=== PATIENT | female | born 1980 | race Caucasian/White ===

== ENCOUNTER → 2019-06-19 | Outpatient (CLI) | payer OTHER | END | disposition home or self-care (01) | LOC: LAB 14:44 | PROVIDERS: ATTEND Preventive Medicine Preventive Medicine/Occupational Environmental Medicine | DX: Z02.1 Encounter for pre-employment examination (principal) | CPT/HCPCS: 36415; 86706; 86735; 86762; 86765; 86787 ==

== ENCOUNTER → 2020-11-15 | Outpatient (CLI) | payer BC ==
[2020-11-15 09:38] LABS: Basophils # (auto) 0 10 ^3/uL (0-0.2); Basophils % (auto) 0.8 % (0.0-2.0); Eosinophils # (auto) 0.2 10 ^3/uL (0-0.8); Eosinophils % (auto) 4.2 % (0.0-7.0); Hematocrit 39.6 % (36.0-46.0); Hemoglobin 13.8 g/dL (12.2-16.2); Lymphocytes # (auto) 1.4 10 ^3/uL (0.4-5.4); Lymphocytes % (auto) 25.6 % (10.0-50.0); Mean Corpuscular Hemoglobin 31.9 pg (28.0-32.0); Mean Corpuscular Hgb Conc. 34.8 g/dL (32.0-36.0); Mean Corpuscular Volume 91.5 fL (80.0-100.0); Monocytes # (auto) 0.4 10 ^3/uL (0-1.3); Monocytes % (auto) 7.6 % (0.0-12.0); Neutrophils # (auto) 3.5 10 ^3/uL (1.6-8.6); Neutrophils % (auto) 61.8 % (37.0-80.0); Platelet Count (auto) 303 10^3/uL (140-450); Red Blood Cells 4.32 10^6/uL (4.0-5.20); Red Cell Distribution Width 12.8 % (11.8-14.3); White Blood Cell 5.7 10^3/uL (4.4-10.8)
[2020-11-15 09:56] LABS: Urine Bacteria NONE SEEN /hpf (None Seen); Urine Blood Negative /uL (Negative); Urine Mucus FEW (None Seen); Urine Specific Gravity 1.025 (1.001-1.035); Urine WBC 1 /hpf (0 - 5)
[2020-11-15 10:24] LABS: Albumin 3.6 g/dL (3.4-5.0); Calcium 8.3 mg/dL (8.5-10.1)
[2020-11-15 10:29] LABS: BUN/Creatinine Ratio 17.7; Bilirubin, Total 0.4 mg/dL (0.2-1.0); Total Protein 6.9 g/dL (6.4-8.2)
== END | disposition home or self-care (01) ==
LOC: LAB 09:15
PROVIDERS: ATTEND Internal Medicine
DX: M25.50 Pain in unspecified joint (principal)
CPT/HCPCS: 36415; 80053; 80061; 81001; 84439; 84443; 85025; 85049; 85652; 86038; 86200; 86431

== ENCOUNTER → 2023-03-18 | Outpatient (CLI) | payer BC ==
[2023-03-18 09:12] LABS: Basophils # (auto) 0 10 ^3/uL (0-0.2); Basophils % (auto) 0.4 % (0.0-2.0); Eosinophils # (auto) 0.2 10 ^3/uL (0-0.8); Eosinophils % (auto) 3.6 % (0.0-7.0); Hemoglobin 14.1 g/dL (12.2-16.2); Lymphocytes # (auto) 1.5 10 ^3/uL (0.4-5.4); Lymphocytes % (auto) 23.9 % (10.0-50.0); Mean Corpuscular Hemoglobin 31.4 pg (28.0-32.0); Mean Corpuscular Hgb Conc. 34.3 g/dL (32.0-36.0); Mean Corpuscular Volume 91.6 fL (80.0-100.0); Monocytes # (auto) 0.5 10 ^3/uL (0-1.3); Monocytes % (auto) 7.3 % (0.0-12.0); Neutrophils % (auto) 64.8 % (37.0-80.0); Nucleated Red Blood Cells % 0.1 %; Red Blood Cells 4.47 10^6/uL (4.0-5.20); Red Cell Distribution Width 12.6 % (11.8-14.3); White Blood Cell 6.2 10^3/uL (4.4-10.8)
[2023-03-18 09:24] LABS: Urine Bacteria NONE SEEN /hpf (None Seen); Urine Blood Negative /uL (Negative); Urine Clarity Clear (Clear); Urine Color Yellow (Yellow); Urine Hyaline Cast FEW /lpf (0 - 2); Urine Mucus FEW (None Seen); Urine Protein, UAD TRACE (Negative); Urine Specific Gravity 1.026 (1.001-1.035); Urine Urobilinogen Normal (Negative); Urine WBC 1 /hpf (0 - 5)
[2023-03-18 09:35] LABS: Alanine Aminotransferase 30 U/L (7-40); Alkaline Phosphatase 62 U/L (46-116); Anion Gap 3 (5-15); Aspartate Aminotransferase 24 U/L (13-40); BUN/Creatinine Ratio 10.7 (10.0-20.0); Blood Urea Nitrogen 8 mg/dL (9-23); Calcium 9.6 mg/dL (8.5-10.1); Carbon Dioxide 29 mmol/L (20-30); Chloride 107 mmol/L (98-107); Glucose 99 mg/dL (74-106); LDL Cholesterol 108 mg/dL (< 100); Potassium 4.1 mmol/L (3.5-5.1); Sodium 139 mmol/L (136-145); Triglycerides 83 mg/dL (< 150)
[2023-03-18 09:36] LABS: Albumin 4.5 g/dL (3.2-4.8); Bilirubin, Total 0.7 mg/dL (0.2-1.0); Cholesterol 169 mg/dL (< 200); HDL Cholesterol 51 mg/dL (40-59); Total Protein 7.2 g/dL (5.7-8.2)
[2023-03-18 09:39] LABS: Free T4 (Free Thyroxine) 0.93 ng/dL (0.89-1.76)
[2023-03-18 09:40] LABS: Follicle Stimulating Hormone 78.34 IU/L (SEE BELOW); Prolactin 6.67 ng/mL (2.8-29.2)
[2023-03-18 10:18] LABS: Erythrocyte Sedimentation Rate 14 mm/hr (0-20)
== END | disposition home or self-care (01) ==
LOC: LAB 08:47
PROVIDERS: ATTEND Internal Medicine
DX: N92.6 Irregular menstruation, unspecified (principal); R63.5 Abnormal weight gain
CPT/HCPCS: 36415; 80053; 80061; 81001; 83001; 83036; 84146; 84439; 84443; 85025; 85652

== ENCOUNTER → 2023-09-13 | Outpatient (CLI) | payer BC ==
[2023-09-13 12:48] LABS: Basophils # (auto) 0 10 ^3/uL (0-0.2); Basophils % (auto) 0.5 % (0.0-2.0); Eosinophils # (auto) 0.3 10 ^3/uL (0-0.8); Eosinophils % (auto) 4.2 % (0.0-7.0); Hematocrit 40.4 % (36.0-46.0); Hemoglobin 13.6 g/dL (12.2-16.2); Lymphocytes # (auto) 2.6 10 ^3/uL (0.4-5.4); Lymphocytes % (auto) 35.7 % (10.0-50.0); Mean Corpuscular Hemoglobin 30.8 pg (28.0-32.0); Mean Corpuscular Hgb Conc. 33.7 g/dL (32.0-36.0); Mean Corpuscular Volume 91.4 fL (80.0-100.0); Monocytes # (auto) 0.4 10 ^3/uL (0-1.3); Monocytes % (auto) 4.9 % (0.0-12.0); Neutrophils % (auto) 54.7 % (37.0-80.0); Nucleated Red Blood Cells % 0.1 %; Red Blood Cells 4.42 10^6/uL (4.0-5.20); Red Cell Distribution Width 12.9 % (11.8-14.3); White Blood Cell 7.2 10^3/uL (4.4-10.8)
[2023-09-13 13:16] LABS: Alanine Aminotransferase 24 U/L (7-40); Albumin 4.5 g/dL (3.2-4.8); Alkaline Phosphatase 64 U/L (46-116); Anion Gap 9 (5-15); Aspartate Aminotransferase 24 U/L (13-40); BUN/Creatinine Ratio 9.9 (10.0-20.0); Bilirubin, Total 0.4 mg/dL (0.2-1.0); Blood Urea Nitrogen 7 mg/dL (9-23); Calcium 9.7 mg/dL (8.5-10.1); Carbon Dioxide 25 mmol/L (20-30); Chloride 104 mmol/L (98-107); Glucose 84 mg/dL (74-106); Potassium 3.9 mmol/L (3.5-5.1); Sodium 138 mmol/L (136-145); Total Protein 7.2 g/dL (5.7-8.2)
[2023-09-13 13:57] LABS: Erythrocyte Sedimentation Rate 8 mm/hr (0-20)
== END | disposition home or self-care (01) ==
LOC: LAB 12:26
PROVIDERS: ATTEND Internal Medicine
DX: K21.9 Gastro-esophageal reflux disease without esophagitis (principal); K62.5 Hemorrhage of anus and rectum
CPT/HCPCS: 36415; 80053; 85025; 85652

== ENCOUNTER → 2024-02-09 | Outpatient (CLI) | payer BC ==
[2024-02-09 09:13] LABS: Urine Bacteria None Seen /hpf (None Seen)
[2024-02-09 09:37] LABS: Basophils # (auto) 0 10 ^3/uL (0-0.2); Basophils % (auto) 0.4 % (0.0-2.0); Eosinophils # (auto) 0.2 10 ^3/uL (0-0.8); Eosinophils % (auto) 3.6 % (0.0-7.0); Hematocrit 42.3 % (36.0-46.0); Hemoglobin 14.4 g/dL (12.2-16.2); Lymphocytes # (auto) 1.5 10 ^3/uL (0.4-5.4); Lymphocytes % (auto) 22.4 % (10.0-50.0); Mean Corpuscular Hemoglobin 31.6 pg (28.0-32.0); Mean Corpuscular Volume 92.8 fL (80.0-100.0); Monocytes # (auto) 0.5 10 ^3/uL (0-1.3); Monocytes % (auto) 7.5 % (0.0-12.0); Neutrophils # (auto) 4.4 10 ^3/uL (1.6-8.6); Neutrophils % (auto) 66.1 % (37.0-80.0); Nucleated Red Blood Cells % 0.1 %; Platelet Count (auto) 353 10^3/uL (140-450); Red Blood Cells 4.56 10^6/uL (4.0-5.20); Red Cell Distribution Width 12.7 % (11.8-14.3); White Blood Cell 6.6 10^3/uL (4.4-10.8)
[2024-02-09 09:39] LABS: Urine Blood Negative /uL (Negative); Urine Clarity Clear (Clear); Urine Color Light-Yellow (Yellow); Urine Protein, UAD Negative (Negative); Urine Urobilinogen Normal (Negative); Urine WBC <1 /hpf (0 - 5)
[2024-02-09 10:01] LABS: Alanine Aminotransferase 22 U/L (7-40); Albumin 4.6 g/dL (3.2-4.8); Alkaline Phosphatase 72 U/L (46-116); Anion Gap 6 (5-15); Aspartate Aminotransferase 18 U/L (13-40); BUN/Creatinine Ratio 10.7 (10.0-20.0); Blood Urea Nitrogen 8 mg/dL (9-23); Calcium 10.1 mg/dL (8.7-10.4); Carbon Dioxide 27 mmol/L (20-30); Chloride 108 mmol/L (98-107); Glucose 91 mg/dL (74-106); LDL Cholesterol 112 mg/dL (< 100); Potassium 4.2 mmol/L (3.5-5.1); Sodium 141 mmol/L (136-145); Triglycerides 78 mg/dL (< 150)
[2024-02-09 10:02] LABS: Bilirubin, Total 0.7 mg/dL (0.2-1.0); Cholesterol 180 mg/dL (< 200); HDL Cholesterol 55 mg/dL (40-59); Total Protein 7.3 g/dL (5.7-8.2)
[2024-02-09 10:14] LABS: Erythrocyte Sedimentation Rate 14 mm/hr (0-20)
== END | disposition home or self-care (01) ==
LOC: LAB 08:57
PROVIDERS: ATTEND Internal Medicine
DX: K62.5 Hemorrhage of anus and rectum (principal); R10.30 Lower abdominal pain, unspecified; R63.5 Abnormal weight gain
CPT/HCPCS: 36415; 80053; 80061; 81001; 82533; 84439; 84443; 85025; 85652

== ENCOUNTER → 2024-04-04 | Outpatient (CLI) | payer BC ==
[2024-04-04 16:34] LABS: Basophils # (auto) 0 10 ^3/uL (0-0.2); Basophils % (auto) 0.4 % (0.0-2.0); Eosinophils # (auto) 0.3 10 ^3/uL (0-0.8); Eosinophils % (auto) 3.2 % (0.0-7.0); Hematocrit 42.4 % (36.0-46.0); Hemoglobin 14.3 g/dL (12.2-16.2); Lymphocytes # (auto) 2.6 10 ^3/uL (0.4-5.4); Lymphocytes % (auto) 27.9 % (10.0-50.0); Mean Corpuscular Hemoglobin 31.6 pg (28.0-32.0); Mean Corpuscular Hgb Conc. 33.9 g/dL (32.0-36.0); Mean Corpuscular Volume 93.3 fL (80.0-100.0); Monocytes # (auto) 0.6 10 ^3/uL (0-1.3); Monocytes % (auto) 6.3 % (0.0-12.0); Neutrophils # (auto) 5.8 10 ^3/uL (1.6-8.6); Neutrophils % (auto) 62.2 % (37.0-80.0); Platelet Count (auto) 385 10^3/uL (140-450); Red Blood Cells 4.54 10^6/uL (4.0-5.20); Red Cell Distribution Width 12.9 % (11.8-14.3); White Blood Cell 9.3 10^3/uL (4.4-10.8)
== END | disposition home or self-care (01) ==
LOC: LAB 16:18
PROVIDERS: ATTEND Internal Medicine
DX: K62.5 Hemorrhage of anus and rectum (principal); G43.909 Migraine, unspecified, not intractable, without status migrainosus
CPT/HCPCS: 36415; 83540; 85025

== ENCOUNTER 2024-09-01 07:57 | Day surgery (SDC) | payer BC ==
[2024-08-30 08:39] LABS: Urine Bacteria None Seen /hpf (None Seen)
[2024-08-30 08:51] LABS: Basophils # (auto) 0 10 ^3/uL (0-0.2); Basophils % (auto) 0.3 % (0.0-2.0); Eosinophils # (auto) 0.2 10 ^3/uL (0-0.8); Eosinophils % (auto) 2.7 % (0.0-7.0); Hematocrit 40.8 % (36.0-46.0); Hemoglobin 14.2 g/dL (12.2-16.2); Lymphocytes # (auto) 1.6 10 ^3/uL (0.4-5.4); Mean Corpuscular Hemoglobin 31.9 pg (28.0-32.0); Mean Corpuscular Hgb Conc. 34.8 g/dL (32.0-36.0); Mean Corpuscular Volume 91.6 fL (80.0-100.0); Monocytes # (auto) 0.6 10 ^3/uL (0-1.3); Monocytes % (auto) 7.5 % (0.0-12.0); Neutrophils # (auto) 5.2 10 ^3/uL (1.6-8.6); Neutrophils % (auto) 68.5 % (37.0-80.0); Platelet Count (auto) 330 10^3/uL (140-450); Red Blood Cells 4.45 10^6/uL (4.0-5.20); Red Cell Distribution Width 12.7 % (11.8-14.3); White Blood Cell 7.6 10^3/uL (4.4-10.8)
[2024-08-30 09:18] LABS: Alanine Aminotransferase 24 U/L (7-40); Albumin 4.5 g/dL (3.2-4.8); Alkaline Phosphatase 71 U/L (46-116); Anion Gap 7 (5-15); Aspartate Aminotransferase 23 U/L (13-40); BUN/Creatinine Ratio 10.5 (10.0-20.0); Calcium 10.1 mg/dL (8.7-10.4); Carbon Dioxide 28 mmol/L (20-31); Chloride 105 mmol/L (98-107); Glucose 85 mg/dL (74-106); Potassium 3.7 mmol/L (3.5-5.1); Sodium 140 mmol/L (136-145); Total Protein 7.2 g/dL (5.7-8.2)
[2024-08-30 09:19] LABS: Bilirubin, Total 0.4 mg/dL (0.2-1.0); Blood Urea Nitrogen 8 mg/dL (9-23)
[2024-08-30 09:27] LABS: INR 1.03 (0.9-1.15); Partial Thromboplastin Time 28.1 SEC (24.5-34.5); Prothrombin Time 10.9 sec (9.3-11.8)
[2024-08-30 10:21] LABS: Urine Blood Negative /uL (Negative); Urine Clarity Clear (Clear); Urine Color Light-Yellow (Yellow); Urine Mucus FEW (None Seen); Urine Protein, UAD Negative (Negative); Urine Specific Gravity 1.017 (1.001-1.035); Urine Squamous Epithelial Cell FEW /hpf (<5); Urine Urobilinogen Normal (Negative); Urine WBC 1 /HPF (0-5); Urine pH 5.5 (5.0-9.0)
[~2024-09-01] VITALS: Ht 165.1 cm; Wt 94.3 kg
[~2024-09-01 07:57] MED LIST: ALBUAER3 IN; FLUT1AER3 IN; MONT-8 OR
[2024-09-01] MEDS ORDERED: PROPOFOL 10 MG/ML 20 ML IV ONE ×3 (08:27→09:47)
[2024-09-01] MEDS ORDERED: LIDOCAINE 2% (LOCAL ANESTH.) PF 5ml SDV ONE (08:28)
[2024-09-01 09:54] VITALS: PULSE 18; RESP 18; TEMP 97.4; O2SAT 99
[2024-09-01 10:35] VITALS: BP 137/72; PULSE 83; RESP 12; O2SAT 98
--- NOTE | 2024-09-01 10:39 | DVHOP2 ---
Operative Report DATE OF OPERATION: 09/01/24 PROCEDURE: Upper Endoscopy with biopsy. PREOPERATIVE INDICATION: The patient is a 44 -year-old female undergoing endoscopy for chronic GERD POSTOPERATIVE DIAGNOSES: 1. Patient had a 1 cm sliding-type hiatal hernia with minimal grade a erosive esophagitis 2. Minimal gastritis otherwise normal examination up to the 2nd and 3rd part of the duodenum PROCEDURE PERFORMED BY: Chaz Sanders GI NURSE: Ghada SCOPE: Olympus videoendoscope. ASA CLASS: 2. PREOPERATIVE MEDICATIONS: Mac sedation, Emiliano Gold PROCEDURE IN DETAIL: After obtaining an informed consent, the patient was placed on left lateral decubitus position. The patient was then sedated with the above medications. A bite block was placed between her teeth. The endoscope was then passed through the oropharynx, into the esophagus, and through the stomach and pylorus up to the second and third part of the duodenum. The endoscope was then withdrawn. The 2nd and 3rd part of the duodenal and the duodenal bulb were normal. Duodenal biopsies were obtained The pre-pyloric area antrum and body showed minimal gastritis. Gastric biopsies were obtained. On retroflexion the fundus cardia and angularis were normal. The endoscope was then withdrawn into the distal esophagus Patient had a 1 cm sliding-type hiatal hernia with minimal grade A erosive esophagitis. GE junction biopsies were obtained. The remaining distal and proximal esophagus and oropharynx were unremarkable The patient tolerated the procedure well without difficulty. COMPLICATIONS : None SPECIMENS: Gastric biopsies Antral biopsies GEJx DISPOSITION: Stable D/C to home PLAN: 1. Await for biopsy result 2. Will place pt on Protonix 40 mg p.o. daily 3. Resume GI soft diet 4. Lifestyle and dietary modifications for GERD 5. Outpatient follow up with me in 4-6 weeks to review results and discuss further management CHAZ SANDERS MD Sep 01, 2024 10:39
--- NOTE | 2024-09-01 10:43 | DVHOP2 ---
Operative Report DATE OF OPERATION: 09/01/24 PROCEDURE: Colonoscopy with biopsy and Esperanza ink injection. PREOPERATIVE INDICATION: The patient is a 44 -year-old female undergoing colonoscopy for screening with history of rectal bleeding POSTOPERATIVE DIAGNOSES: 1. Patient had a distal sigmoid mass extending from about 10-15 cm above anal verge which was circumferential with polypoid raised edges and central ulceration friable from which multiple biopsies were obtained Esperanza ink was injected in the proximal and distal margin of the tumor 2. Three or four diminutive benign-appearing rectal polyps were seen and removed by cold biopsy forceps 3. Mild sigmoid diverticular disease 4. Trace internal hemorrhoids otherwise normal examination up to the cecum PROCEDURE PERFORMED BY: Chaz Sanders M.D. SCOPE: Olympus videocolonoscope. ASA CLASS: 2. PREOPERATIVE MEDICATIONS: Emiliano Lynn PROCEDURE IN DETAIL: After obtaining an informed consent, the patient was placed on left lateral decubitus position. She was then sedated with the above medications. A rectal examination was performed that was normal. The colonoscope was then passed through the anus into the rectosigmoid and through the descending, transverse, and ascending colon up to the cecum with visualization of the appendiceal orifice, base of the cecum and the ileocecal valve. The colonoscope was then withdrawn. There was no evidence of colitis. Patient had mild sigmoid diverticular disease. Patient had a distal sigmoid mass. Multiple biopsies were obtained This was circumferential annular partially obstructing friable with central ulceration and raised edges at the proximal and distal margins Esperanza ink was applied on the proximal and distal margins of the ulcers for marking and tattooing. The patient did have three or four diminutive hyperplastic type rectal polyps that were seen and removed by cold biopsy forceps On retroflexion and straight on view she had trace to 1+ internal hemorrhoids. The patient tolerated the procedure well without difficulty. WITHDRAWAL TIME: 12 minutes QUALITY OF THE PREP: Flaxton Bowel Prep score: 9. COMPLICATIONS : None SPECIMENS: Sigmoid mass biopsies Rectal polyps DISPOSITION: Stable D/C to home PLAN: 1. Await biopsy results 2. CT scan of the chest abdomen pelvis 3. Check labs including CEA level 4. Surgical referral for low anterior resection as the tumor is causing partial obstruction and bleeding 5. Oncology referral subsequently for further management 6. Discuss results with patient CHAZ SANDERS MD Sep 01, 2024 10:43
== END 2024-09-01 10:55 | disposition home or self-care (01) ==
LOC: GI 07:57
PROVIDERS: ATTEND Internal Medicine Gastroenterology
DX: K62.5 Hemorrhage of anus and rectum (principal); C18.7 Malignant neoplasm of sigmoid colon; K62.1 Rectal polyp; K57.30 Diverticulosis of large intestine without perforation or abscess without bleeding; K29.50 Unspecified chronic gastritis without bleeding; K21.9 Gastro-esophageal reflux disease without esophagitis; K22.10 Ulcer of esophagus without bleeding; K29.70 Gastritis, unspecified, without bleeding; I10 Essential (primary) hypertension; J45.909 Unspecified asthma, uncomplicated; F17.210 Nicotine dependence, cigarettes, uncomplicated; E66.01 Morbid (severe) obesity due to excess calories; Z68.34 Body mass index [BMI] 34.0-34.9, adult; Z79.899 Other long term (current) drug therapy; Z90.79 Acquired absence of other genital organ(s); Z98.890 Other specified postprocedural states
CPT/HCPCS: 36415; 43239; 45380; 45381; 80053; 81001; 84702; 85025; 85610; 85730; 88305; 88312; 88342; A4648; J2003; J2704; J7030

== ENCOUNTER → 2024-09-05 | Outpatient (CLI) | payer BC | END | disposition home or self-care (01) | LOC: LAB 16:09 | PROVIDERS: ATTEND Internal Medicine Gastroenterology | DX: C18.7 Malignant neoplasm of sigmoid colon (principal) | CPT/HCPCS: 36415; 82378; 82565; 84520 ==

== ENCOUNTER 2024-09-20 06:15 | Inpatient (IN) | payer BC ==
[2024-09-18 11:55] LABS: Urine Bacteria None Seen /hpf (None Seen)
[2024-09-18 11:58] LABS: Basophils # (auto) 0 10 ^3/uL (0-0.2); Basophils % (auto) 0.1 % (0.0-2.0); Eosinophils # (auto) 0.2 10 ^3/uL (0-0.8); Eosinophils % (auto) 2.1 % (0.0-7.0); Hematocrit 44.9 % (36.0-46.0); Hemoglobin 15.3 g/dL (12.2-16.2); Lymphocytes % (auto) 23.2 % (10.0-50.0); Mean Corpuscular Hemoglobin 30.9 pg (28.0-32.0); Mean Corpuscular Volume 90.8 fL (80.0-100.0); Monocytes # (auto) 0.5 10 ^3/uL (0-1.3); Monocytes % (auto) 5.9 % (0.0-12.0); Neutrophils % (auto) 68.7 % (37.0-80.0); Nucleated Red Blood Cells % 0.1 %; Platelet Count (auto) 433 10^3/uL (140-450); Red Blood Cells 4.94 10^6/uL (4.0-5.20); White Blood Cell 8.7 10^3/uL (4.4-10.8)
[2024-09-18 12:14] LABS: Urine Blood Negative /uL (Negative); Urine Clarity Clear (Clear); Urine Color Light-Yellow (Yellow); Urine Protein, UAD Negative (Negative); Urine Specific Gravity 1.008 (1.001-1.035); Urine Squamous Epithelial Cell None Seen /hpf (<5); Urine Urobilinogen Normal (Negative); Urine pH 6.5 (5.0-9.0)
[2024-09-18 12:15] LABS: INR 1.05 (0.9-1.15); Partial Thromboplastin Time 28.4 SEC (24.5-34.5); Prothrombin Time 11.1 sec (9.3-11.8)
[2024-09-18 12:24] LABS: Alanine Aminotransferase 26 U/L (7-40); Albumin 4.7 g/dL (3.2-4.8); Alkaline Phosphatase 75 U/L (46-116); Anion Gap 8 (5-15); Aspartate Aminotransferase 16 U/L (13-40); BUN/Creatinine Ratio 7.3 (10.0-20.0); Carbon Dioxide 25 mmol/L (20-31); Chloride 105 mmol/L (98-107); Glucose 98 mg/dL (74-106); Sodium 138 mmol/L (136-145); Total Protein 7.5 g/dL (5.7-8.2)
[2024-09-18 12:25] LABS: Bilirubin, Total 0.6 mg/dL (0.2-1.0)
[2024-09-18 12:28] LABS: Blood Urea Nitrogen 6 mg/dL (9-23); Calcium 10.5 mg/dL (8.7-10.4)
[~2024-09-20] VITALS: Ht 167.6 cm; Wt 96.3 kg
[2024-09-20] VITALS (7 sets, daily range): BP systolic 106–122; BP diastolic 66–76; PULSE 83–93; RESP 16–20; TEMP 97.5–99; O2SAT 91–97
[2024-09-20] MEDS: CELECOXIB 100 MG CAP ONE (06:44)
[2024-09-20] MEDS: ACETAMINOPHEN IV 100 ML IV ONE (06:44)
[2024-09-20] MEDS: GABAPENTIN 300 MG CAP ONE (06:44)
[2024-09-20] MEDS: ceFAZolin 2 GM/D5W50ml 50 ML IV ONE (06:45)
[2024-09-20] MEDS: BUPIVACAINE 0.25% INJ 50ML VIAL ONE (06:48)
[2024-09-20] MEDS: GABAPENTIN 300 MG CAP PO ONE (06:50)
[2024-09-20] MEDS: ACETAMINOPHEN IV 1000 MG/100ML (10MG/ML) IV ONE (06:50)
[2024-09-20] MEDS: CELECOXIB 100 MG CAP PO ONE (06:50)
[2024-09-20] MEDS: BUPIVACAINE 0.5% P/F INJ 10 ML VIAL ONE (06:56)
[2024-09-20] MEDS: LIDOCAINE W/ EPINEPHRINE 1% 20ML VIAL ONE (06:56)
[2024-09-20] MEDS: POVIDONE IODINE 10 % TOPICAL OINT 30GM TOP ONE (06:58)
[2024-09-20] MEDS ORDERED: DexAMETHasone SOD PHOS 10MG/1ML VIAL INJ ONE ×2 (07:02→07:04)
[2024-09-20] MEDS ORDERED: PROPOFOL 10 MG/ML 20 ML IV ONE ×3 (07:03→09:10)
[2024-09-20] MEDS ORDERED: GLYCOPYRROLATE 0.2 MG/ML 1ML VIAL ONE (07:03)
[2024-09-20] MEDS ORDERED: ROCURONIUM 10MG/ML 10ML VIAL IV ONE (07:03)
[2024-09-20] MEDS ORDERED: EPINEPHrine HCL 1 MG/1 ML AMP ONE (07:04)
[2024-09-20] MEDS ORDERED: KETOROLAC TROMETH 30 MG/ML 1ML VIAL ONE (07:04)
[2024-09-20] MEDS ORDERED: ONDANSETRON HCL 4 MG/2 ML VIAL ONE (07:04)
[2024-09-20] MEDS ORDERED: LIDOCAINE 2% (LOCAL ANESTH.) PF 5ml SDV ONE (07:04)
[2024-09-20] MEDS ORDERED: SUGAMMADEX 200mg/2ml Vial (100MG/ML) IV ONE (07:04)
[2024-09-20] MEDS ORDERED: LIDOCAINE HCL 2% TOP JELLY 5ML TOP ONE (07:07)
[2024-09-20] MEDS ORDERED: KETAMINE 50mg/ML 1ml syringe ONE (07:11)
[2024-09-20] MEDS ORDERED: fentaNYL CITRATE 100 MCG/2 ML VL ONE (07:21)
[2024-09-20] MEDS ORDERED: SODIUM CHLORIDE LOCK 10 ML ONE (07:48)
[2024-09-20] MEDS ORDERED: PHENYLEPHRINE HCL 10 MG/ML VL ONE (07:48)
[2024-09-20] MEDS ORDERED: ESMOLOL HCL 10 ML IV ONE (08:00)
[2024-09-20] MEDS ORDERED: ONDANSETRON HCL 4 MG/2 ML VIAL IV PRN ×2 (10:15→10:45)
--- NOTE | 2024-09-20 10:25 | DVHOP ---
DATE OF SURGERY: 09/20/2024 PREOPERATIVE DIAGNOSIS: Colorectal cancer. POSTOPERATIVE DIAGNOSIS: Rectal cancer. SURGEON: John White MD [employer]: Antonio Chambers. ANESTHESIA: General endotracheal. ANESTHESIOLOGIST: Wai Rebollar. PROCEDURE: Exploratory laparotomy, low anterior resection, rectosigmoid anastomosis. DESCRIPTION OF PROCEDURE: Under general anesthesia with the patient's skin prepped and draped, a midline incision was made and the morbidly obese abdomen entered. The amount of obesity was extreme and made the operation extremely difficult. Exploration of the abdomen manually and visually revealed no unexpected pathology. The tumor, however, was not in the sigmoid colon, as reported previously it was in the rectum itself. The presence of the uterus, morbid obesity, relatively narrow pelvis, and a very low lying tumor made the operation exceedingly difficult. I mobilized the left colon by incision along the white line of Toldt, sweeping away the ureters on the left and right side. These ureters were visualized and protected. The mesentery was divided between metallic clamps and the mesenteric pedicles were ligated. The pelvic floor was opened and dissected. The rectum was elevated. The rectal tumor was circumferential in nature, palpable, and it was extremely difficult to elevate from the pelvis. I was unable to put a clamp on the rectum. The rectum was transected approximately 3 cm distal to the tumor and the rectal stump was held in place by Augusta forceps. The rectosigmoid colon was then divided and the specimen removed from the field submitted for histopathologic examination. The descending sigmoid colon segment was anastomosed to the rectum utilizing 3-0 Monocryl suture. The wall was exceedingly thin, and due to the fat that was present, I was unable to put reinforcing Prolene sutures into the serosa. The mesentery was then approximated using 2-0 Monocryl suture and the pelvis was profusely irrigated. Irrigant was aspirated. A 10-mm Fabian-Perez drain was placed to the vicinity of the anastomosis, but not abutting against it. The drain was exteriorized separately and secured with a 2-0 nylon suture following assurance of adequate and accurate needle and sponge counts, and following assurance of complete hemostasis, the abdomen was closed using 2-0 Monocryl suture for approximation of the peritoneum, #1 double-stranded PDS suture for approximation of the fascia, 2-0 Monocryl suture for approximation of subcutaneous fat, subcutaneous tissues, and skin. The patient remained stable throughout the procedure and left the operating room following an accurate needle and sponge count. Her daughter, Mery, was thoroughly informed by phone of her mother's procedure and successful completion thereof. MD ELIJAH Johnson/PHIL TID: [id number] RECEIPT: [id number]
[2024-09-20] MEDS ORDERED: hydrALAZINE HCL 20 MG/ML VL IV PRN (10:45)
[2024-09-20] MEDS ORDERED: oxyCODONE HCL 5MG TAB PO PRN (10:45)
[2024-09-20] MEDS: HYDROmorphone HCL 2 MG/ML VL/or syr IV PRN ×2 (10:45→22:08)
[2024-09-20] MEDS ORDERED: FLUMAZENIL 0.1 MG/ML INJ 10ML MDV IV PRN (10:45)
[2024-09-20] MEDS ORDERED: fentaNYL CITRATE 100 MCG/2 ML VL IV PRN (10:45)
[2024-09-20] MEDS ORDERED: NITROGLYCERIN 0.4 MG SL TAB SL PRN (10:45)
[2024-09-20] MEDS: HYDROmorphone HCL 2 MG/ML VL/or syr ONE (10:45)
[2024-09-20] MEDS ORDERED: NALOXONE HCL 0.4 MG/ML VIAL IV PRN (10:45)
[2024-09-20] MEDS ORDERED: ePHEDrine SULFATE 50 MG/ML AMP IV PRN (10:45)
[2024-09-20] MEDS ORDERED: TPN PER PHARMACY 0 ML IV SCH (12:00)
[2024-09-20] MEDS: D5W/SOD CHL 0.45%/KCL 20MEQ 1,000 ML IV SCH (13:13)
[2024-09-20] MEDS ORDERED: DEXTROSE (50%) 50ML SYRG IV SCH ×2 (13:15→15:00)
[2024-09-20] MEDS ORDERED: MONT-8 OR (13:27)
[2024-09-20] MEDS ORDERED: FLUT1AER3 IN (13:27)
[2024-09-20] MEDS ORDERED: ALBU2TAB11 PO (13:27)
--- NOTE | 2024-09-20 14:29 | DVHHP2 ---
Review of Systems Allergies: Coded Allergies: NO KNOWN ALLERGIES (Unverified , 08/30/24) Medications Current Medications Medications Dose Ordered Sig/Deisy Route Start Time Stop Time Status Last Admin Dose Admin Potassium Chloride/Dextrose/ Sod Cl 1,000 ml @ 120 mls/hr Q8H20M IV 09/20/24 10:15 09/20/24 13:13 120 MLS/HR Cefazolin Sodium/ Dextrose 50 ml @ 50 mls/hr Q8H IV 09/20/24 13:00 Metronidazole 100 ml @ 100 mls/hr Q8HR IV 09/20/24 14:00 Pantoprazole Sodium 40 mg DAILY IV 09/21/24 10:00 Ondansetron HCl 4 mg Q4HPRN PRN IV 09/20/24 10:15 Nitroglycerin 0.4 mg Q5MINP PRN SL 09/20/24 10:45 Amino Acids 0 ml @ 0 mls/hr PER PHARMACY IV 09/20/24 12:00 Diagnostic Test (Pha) 1 strip Q6HR 09/20/24 18:00 Insulin Human Regular FOLLOW SLIDING SCALE Q6HR SC 09/20/24 18:00 Dextrose 50 ml UD IV 09/20/24 13:15 Fat Emulsion Intravenous 50 ml/ Sodium Chloride 40 meq/Potassium Chloride 20 meq/ Magnesium Sulfate 6 meq/ Multivitamins 10 ml/Chromium/ Copper/Manganese/ Zinc 1 ml/Amino Acids/Dextrose 982.5 ml @ 41 mls/hr [id number] IV 09/20/24 22:00 09/21/24 21:59 Exam Vital Signs Vital Signs Date Time Temp Pulse Resp B/P (MAP) Pulse Ox O2 Delivery O2 Flow Rate FiO2 09/20/24 11:45 Nasal Cannula 3.0 98 09/20/24 11:42 88 14 110/69 (83) 98 09/20/24 10:32 98.9 98.9 Labs/Xrays Labs Test 09/20/24 11:47 09/18/24 11:47 Range/Units White Blood Count 8.7 4.4-10.8 10^3/uL Red Blood Count 4.94 4.0-5.20 10^6/uL Hemoglobin 15.3 12.2-16.2 g/dL Hematocrit 44.9 36.0-46.0 % Mean Corpuscular Volume 90.8 80.0-100.0 fL Mean Corpuscular Hemoglobin 30.9 28.0-32.0 pg Mean Corpuscular Hemoglobin Concent 34.0 32.0-36.0 g/dL Red Cell Distribution Width 13.0 11.8-14.3 % Platelet Count 433 140-450 10^3/uL Mean Platelet Volume 7.5 6.9-10.8 fL Neutrophils (%) (Auto) 68.7 37.0-80.0 % Lymphocytes (%) (Auto) 23.2 10.0-50.0 % Monocytes (%) (Auto) 5.9 0.0-12.0 % Eosinophils (%) (Auto) 2.1 0.0-7.0 % Basophils (%) (Auto) 0.1 0.0-2.0 % Neutrophils # (Auto) 6.0 1.6-8.6 10 ^3/uL Lymphocytes # (Auto) 2.0 0.4-5.4 10 ^3/uL Monocytes # (Auto) 0.5 0-1.3 10 ^3/uL Eosinophils # (Auto) 0.2 0-0.8 10 ^3/uL Basophils # (Auto) 0 0-0.2 10 ^3/uL Nucleated Red Blood Cells 0.1 % Prothrombin Time 11.1 9.3-11.8 sec Prothrombin Time INR 1.05 0.9-1.15 Activated Partial Thromboplast Time 28.4 24.5-34.5 SEC Urine Color Light-yellow Yellow Urine Clarity Clear Clear Urine pH 6.5 5.0-9.0 Urine Specific [place] 1.008 1.001-1.035 Urine Protein Negative Negative Urine Ketones Negative Negative Urine Blood Negative Negative /uL Urine Nitrite Negative Negative Urine Bilirubin Negative Negative Urine Urobilinogen Normal Negative mg/dL Urine Leukocyte Esterase Negative Negative /uL Urine RBC None seen 0 - 4 /hpf Urine Microscopic WBC 0-5 /HPF Urine Squamous Epithelial Cells None seen <5 /hpf Urine Bacteria None seen None Seen /hpf Urine Glucose Normal Normal mg/dL Sodium Level 138 136-145 mmol/L Potassium Level 4.0 3.5-5.1 mmol/L Chloride Level 105 98-107 mmol/L Carbon Dioxide Level 25 20-31 mmol/L Anion Gap 8 5-15 Blood Urea Nitrogen 6 L 9-23 mg/dL Creatinine 0.82 0.550-1.02 mg/dL Glomerular Filtration Rate Calc 90 >90 mL/min BUN/Creatinine Ratio 7.3 L 10.0-20.0 Serum Glucose 98 74-106 mg/dL Calcium Level 10.5 H 8.7-10.4 mg/dL Total Bilirubin 0.6 0.2-1.0 mg/dL Aspartate Amino Transferase (AST) 16 13-40 U/L Alanine Aminotransferase (ALT) 26 7-40 U/L Alkaline Phosphatase 75 46-116 U/L Total Protein 7.5 5.7-8.2 g/dL Albumin 4.7 3.2-4.8 g/dL Beta HCG, Quantitative 4.0 1.5-4.2 mIU/mL Assessment/Plan Assessment/Plan see dictated note Plan discussed with: Patient My Orders Orders - MARISA PLASENCIA MD Procedure Category Date Status Time Admit ADMIT 09/20/24 Transmitted 10:39 Oxygen By Nasal RT 09/20/24 Transmitted Cannula 10:39 Nitroglycerin PHA 09/20/24 In Process Sublingual (Ntrostat 10:45 Stat Ekg For Chest LINDA 09/20/24 In Process Pain 10:39 Notify Md Of Changes LINDA 09/20/24 In Process From Base 10:39 Clinical Documentation Developer For LINDA 09/20/24 In Process 24 Hours 10:39 Emergency Dysrhythmia LINDA 09/20/24 In Process Protocol 10:39 Rhythm Strips Once LINDA 09/20/24 In Process Every Shift 10:39 Hydromorphone Hcl Inj PHA 09/20/24 Verified (Dilaudid Injectio 14:30 Clinimix Per Pharmacy PHA 09/20/24 Verified 14:30 Albuterol Medneb PHA 09/20/24 Verified (Ventolin Medneb) 18:00 Ipratropium Medneb PHA 09/20/24 Verified (Atrovent Medneb) 18:00 Complete Blood Count LAB 09/21/24 Verified 06:00 Comprehensive LAB 09/21/24 Verified Metabolic Panel 06:00 Chest Portable XY 09/21/24 Verified 06:00 Nicotine 14mg/24hr PHA 09/20/24 Verified (Nicoderm 14mg/24hr) 14:30 Nicotine 14mg/24hr PHA 09/21/24 Verified (Nicoderm 14mg/24hr) 10:00 Lorazepam 2mg/Ml Inj PHA 09/20/24 Verified (Ativan Inj) 14:30 Date of Service: Sep 20, 2024 Billing Provider: MARISA PLASENCIA MD Common Visit Codes: [id number] INP/OBS CARE (HIGH) MARISA PLASENCIA MD Sep 20, 2024 14:29
[2024-09-20] MEDS: NICOTINE 14 MG/24HR TOPICAL PATCH TD ONE (14:30)
[2024-09-20] MEDS ORDERED: LORazepam 2MG/ML-1ML VIAL IV PRN (14:30)
[2024-09-20] MEDS ORDERED: CLINIMIX PER PHARMACY 0 ML IV SCH (14:30)
--- NOTE | 2024-09-20 14:32 | CODING ---
Date of Service: Sep 20, 2024 Billing Provider: MARISA PLASENCIA MD Common Visit Codes: [id number] INP/OBS CARE (HIGH) Secondary Visit Codes: [id number] CHNG SMOKING >10MIN MARISA PLASENCIA MD Sep 20, 2024 14:32
--- NOTE | 2024-09-20 14:46 | DVHHP ---
ADMIT DATE: 09/20/2024 HISTORY OF PRESENT ILLNESS: The patient is a 44-year-old lady who was admitted after she underwent surgery for colon cancer. The patient has had persistent blood in the stool. Subsequent colonoscopy showed evidence of cancer in the sigmoid colon. The patient has now undergone resection. She complains of lower abdominal pain. No nausea or vomiting. No shortness of breath. REVIEW OF SYSTEMS: Review of the rest of systems otherwise currently negative. PAST MEDICAL HISTORY: Significant for COPD. MEDICATIONS: She takes Trelegy as well as Singulair. ALLERGIES: No known drug allergies. SOCIAL HISTORY: She smokes about a pack a day. Denies alcohol intake. Lives at home with her children. FAMILY HISTORY: Negative. PHYSICAL EXAMINATION: GENERAL: The patient is awake and alert. VITAL SIGNS: Temperature of 98.9, pulse of 88 per minute, blood pressure 110/69. SHEENT: Unremarkable. NECK: There is no JVD, no pedal edema. LUNGS: Equal bilaterally. No added sounds. CARDIOVASCULAR: S1 and S2 are regular without murmurs. ABDOMEN: Bowel sounds are hypoactive. NEUROLOGIC: Nonfocal. MUSCULOSKELETAL: Normal. ASSESSMENT AND PLAN: * COPD for which she will be placed on bronchodilators. * Tobacco abuse for which she has been advised to quit. She will be placed on nicotine patch. Time spent 11 minutes. * Obesity. * Status post sigmoid colon surgery for colon cancer. She will be placed on IV fluids along with pain medications. MD SHIRA Chan/PHIL TID: [id number] RECEIPT: [id number]
[2024-09-20] MEDS: HYDROMORPHONE HCL 1 MG/ML INJ IV PRN (15:09)
[2024-09-20 17:42] LABS: Phosphorus 2.9 mg/dL (2.4-5.1)
[2024-09-20] MEDS ORDERED: ACCU-CHEK COMFORT CURVE STRIP VI SCH (18:00)
[2024-09-20] MEDS ORDERED: InsuLIN REG 1unit/0.01ml Soln (100units/ml) SC SCH (18:00)
[2024-09-20] MEDS: ACCU-CHEK COMFORT CURVE STRIP VI SCH (18:00)
[2024-09-20] MEDS: InsuLIN REG 1unit/0.01ml Soln (100units/ml) SC SCH (18:00)
[2024-09-20] MEDS: metroNIDAZOLE 500MG/100ML 100 ML IV SCH (18:53)
[2024-09-20] MEDS: ALBUTEROL SULF 2.5 MG/0.5ML(0.5%) NEB SOLN NEB SCH (19:01)
[2024-09-20] MEDS: IPRATROPIUM BROM 0.5 MG/2.5ML INH SOL NEB SCH (19:01)
[2024-09-20] MEDS: ceFAZolin 2 GM/D5W50ml 50 ML IV SCH (20:07)
[2024-09-20] MEDS: AMINO ACID INFUSION IN D10W 1,000 ML IV SCH (21:44)
[2024-09-20] MEDS ORDERED: TPN PER PHARMACY IV NR (22:00)
[2024-09-21] VITALS (15 sets, daily range): BP systolic 102–125; BP diastolic 54–71; PULSE 65–83; RESP 14–20; TEMP 97.7–98; O2SAT 94–100
--- NOTE | 2024-09-21 06:34 | DVH ---
EXAM: XR Chest, 1 View CLINICAL INDICATION: copd TECHNIQUE: Frontal view of the chest. COMPARISON: None FINDINGS: LUNGS AND PLEURAL SPACES: Unremarkable. No consolidation. No pneumothorax. HEART: Cardiomegaly without overt failure. MEDIASTINUM: Unremarkable. Normal mediastinal contour. BONES/JOINTS: Unremarkable. No acute fracture. TUBES, LINES AND DEVICES: Enteric tube tip in the stomach. OTHER FINDINGS: . IMPRESSION: Cardiomegaly without overt failure.
[2024-09-21 07:04] LABS: Hematocrit 35.7 % (36.0-46.0); Hemoglobin 12.1 g/dL (12.2-16.2); Mean Corpuscular Hemoglobin 30.6 pg (28.0-32.0); Mean Corpuscular Hgb Conc. 33.9 g/dL (32.0-36.0); Mean Corpuscular Volume 90.3 fL (80.0-100.0); Platelet Count (auto) 338 10^3/uL (140-450); Red Blood Cells 3.95 10^6/uL (4.0-5.20); Red Cell Distribution Width 13.3 % (11.8-14.3); White Blood Cell 17.3 10^3/uL (4.4-10.8)
[2024-09-21 07:14] LABS: Alanine Aminotransferase 22 U/L (7-40); Albumin 3.8 g/dL (3.2-4.8); Alkaline Phosphatase 59 U/L (46-116); Anion Gap 7 (5-15); Aspartate Aminotransferase 17 U/L (13-40); BUN/Creatinine Ratio 9.6 (10.0-20.0); Calcium 9.6 mg/dL (8.7-10.4); Carbon Dioxide 24 mmol/L (20-31); Potassium 4.1 mmol/L (3.5-5.1); Sodium 138 mmol/L (136-145)
[2024-09-21 07:15] LABS: Band Neutrophils % (manual) 0; Basophils % (manual) 0 (0.0-2.0); Bilirubin, Total 0.3 mg/dL (0.2-1.0); Blast Cells 0; Blood Urea Nitrogen 7 mg/dL (9-23); Chloride 107 mmol/L (98-107); Eosinophils % (manual) 0 (0-7); Glucose 148 mg/dL (74-106); Metamyelocytes % 0; Myelocytes % 0; Phosphorus 1.6 mg/dL (2.4-5.1); Promyelocytes % 0; Reactive Lymphocytes 0
[2024-09-21 10:24] LABS: Lymphocytes % (manual) 3 (10.0-50.0); Monocytes % (manual) 6 (0-12); Platelet Estimate Adequate
[2024-09-21] MEDS: PANTOPRAZOLE 40 MG/10 ML VIAL INJ IV SCH (11:31)
[2024-09-21] MEDS: NICOTINE 14 MG/24HR TOPICAL PATCH TD SCH (11:32)
--- NOTE | 2024-09-21 13:07 | DVHPN2 ---
Progress Note Date Seen: September 21, 2024 Medical Necessity Reason Pt with a Central, PICC or Fol: No Objective vital signs Vital Sign Date Time Temp Pulse Resp B/P (MAP) Pulse Ox O2 Delivery O2 Flow Rate FiO2 09/21/24 13:01 97.7 78 18 111/56 (74) 94 97.7 09/21/24 11:45 Nasal Cannula 3.0 09/21/24 11:45 32 Total Intake and Output 09/20/24 09/20/24 09/21/24 15:00 23:00 07:00 Output Total 250 ml 55 ml Balance -250 ml -55 ml medications Current Medications Medications Dose Ordered Sig/Deisy Route Start Time Stop Time Status Last Admin Dose Admin Potassium Chloride/Dextrose/ Sod Cl 1,000 ml @ 120 mls/hr Q8H20M IV 09/20/24 10:15 09/21/24 11:38 120 MLS/HR Cefazolin Sodium/ Dextrose 50 ml @ 50 mls/hr Q8H IV 09/20/24 13:00 09/21/24 05:17 50 MLS/HR Metronidazole 100 ml @ 100 mls/hr Q8HR IV 09/20/24 14:00 09/21/24 05:57 100 MLS/HR Pantoprazole Sodium 40 mg DAILY IV 09/21/24 10:00 09/21/24 11:31 40 MG Ondansetron HCl 4 mg Q4HPRN PRN IV 09/20/24 10:15 Nitroglycerin 0.4 mg Q5MINP PRN SL 09/20/24 10:45 Hydromorphone HCl 1 mg Q4HPRN PRN IV 09/20/24 14:30 09/21/24 11:51 1 MG Amino Acids 0 ml @ 0 mls/hr PER PHARMACY IV 09/20/24 14:30 Albuterol 2.5 mg Q6HWA NEB 09/20/24 18:00 09/21/24 11:45 2.5 MG Ipratropium [place] 0.5 mg Q6HWA NEB 09/20/24 18:00 09/21/24 11:45 0.5 MG Nicotine 1 patch DAILY TD 09/21/24 10:00 09/21/24 11:32 1 PATCH Lorazepam 0.5 mg Q6HP PRN IV 09/20/24 14:30 Diagnostic Test (Pha) 1 strip Q6HR 09/20/24 18:00 09/21/24 11:51 1 STRIP Insulin Human Regular FOLLOW SLIDING SCALE Q6HR SC 09/20/24 18:00 09/21/24 05:52 4 UNITS Dextrose 50 ml UD IV 09/20/24 15:00 Amino Acids/ Electrolytes/ Dextrose 1,000 ml @ 41 mls/hr DAILY@2200 IV 09/20/24 22:00 09/20/24 21:44 41 MLS/HR Hydromorphone HCl 0.5 mg Q2HPRN PRN IV 09/20/24 19:00 09/21/24 08:15 0.5 MG laboratory and microbiology Laboratory Tests 09/21/24 05:46 Test 09/21/24 05:46 Range/Units Serum Glucose 148 H 74-106 mg/dL Problem List/Assessment/Plan Problem List/Assessment/Plan 09/21/24 poor pain control, wound zack and well approximated, expalined Operative findings, needs to remain NPO with NGT till has a BOWEL MOVEMENT , will keep at bed rest the next 72 hours. in order to minimize tension of rectal anastomosis Plan discussed with: Patient ALFA BETHEA MD September 21, 2024 13:07
[2024-09-21] MEDS ORDERED: TPN PER PHARMACY 0 ML IV SCH (13:15)
--- NOTE | 2024-09-21 13:18 | DVHPN2 ---
Progress Note Date Seen: September 21, 2024 Medical Necessity Reason Pt with a Central, PICC or Fol: Yes The following are medically ne: Cassidy Catheter Reason for cassidy catheter: Strict I&O Subjective Patient reports: No new complaints Review of Systems: HEENT:Normal, CVS:Normal, RESPIRATORY:Normal, GI:Normal, :Normal, MSK:Normal, NEURO:Normal Objective vital signs Vital Sign Date Time Temp Pulse Resp B/P (MAP) Pulse Ox O2 Delivery O2 Flow Rate FiO2 09/21/24 13:01 97.7 78 18 111/56 (74) 94 97.7 09/21/24 11:45 Nasal Cannula 3.0 09/21/24 11:45 32 Total Intake and Output 09/20/24 09/20/24 09/21/24 15:00 23:00 07:00 Output Total 250 ml 55 ml Balance -250 ml -55 ml medications Current Medications Medications Dose Ordered Sig/Deisy Route Start Time Stop Time Status Last Admin Dose Admin Potassium Chloride/Dextrose/ Sod Cl 1,000 ml @ 120 mls/hr Q8H20M IV 09/20/24 10:15 09/21/24 11:38 120 MLS/HR Cefazolin Sodium/ Dextrose 50 ml @ 50 mls/hr Q8H IV 09/20/24 13:00 09/21/24 05:17 50 MLS/HR Metronidazole 100 ml @ 100 mls/hr Q8HR IV 09/20/24 14:00 09/21/24 05:57 100 MLS/HR Pantoprazole Sodium 40 mg DAILY IV 09/21/24 10:00 09/21/24 11:31 40 MG Ondansetron HCl 4 mg Q4HPRN PRN IV 09/20/24 10:15 Nitroglycerin 0.4 mg Q5MINP PRN SL 09/20/24 10:45 Hydromorphone HCl 1 mg Q4HPRN PRN IV 09/20/24 14:30 09/21/24 11:51 1 MG Amino Acids 0 ml @ 0 mls/hr PER PHARMACY IV 09/20/24 14:30 Albuterol 2.5 mg Q6HWA NEB 09/20/24 18:00 09/21/24 11:45 2.5 MG Ipratropium [place] 0.5 mg Q6HWA NEB 09/20/24 18:00 09/21/24 11:45 0.5 MG Nicotine 1 patch DAILY TD 09/21/24 10:00 09/21/24 11:32 1 PATCH Lorazepam 0.5 mg Q6HP PRN IV 09/20/24 14:30 Diagnostic Test (Pha) 1 strip Q6HR 09/20/24 18:00 09/21/24 11:51 1 STRIP Insulin Human Regular FOLLOW SLIDING SCALE Q6HR SC 09/20/24 18:00 09/21/24 05:52 4 UNITS Dextrose 50 ml UD IV 09/20/24 15:00 Amino Acids/ Electrolytes/ Dextrose 1,000 ml @ 41 mls/hr DAILY@2200 IV 09/20/24 22:00 09/20/24 21:44 41 MLS/HR Hydromorphone HCl 0.5 mg Q2HPRN PRN IV 09/20/24 19:00 09/21/24 08:15 0.5 MG Examination: GENERAL:Normal, HEENT:Normal, NECK:Normal, LUNGS:Normal, CVS:Normal, ABDOMEN:Normal, ABDOMEN:Abnormal (NG TUBE), MSK:Normal, SKIN:Normal, NEURO:Normal, :Normal laboratory and microbiology Laboratory Tests 09/21/24 05:46 Test 09/21/24 05:46 Range/Units Serum Glucose 148 H 74-106 mg/dL Problem List/Assessment/Plan Problem List/Assessment/Plan * COPD for which she will be placed on bronchodilators. * Tobacco abuse for which she has been advised to quit. She will be placed on nicotine patch. Time spent 11 minutes. * Obesity. * Status post sigmoid colon surgery for colon cancer. She will be placed on IV fluids along with pain medications. Plan discussed with: Patient My Orders My Orders Orders - MARISA PLASENCIA MD Procedure Category Date Status Time Hydromorphone Hcl Inj PHA 09/20/24 In Process (Dilaudid Injectio 14:30 Clinimix Per Pharmacy PHA 09/20/24 In Process 14:30 Albuterol Medneb PHA 09/20/24 In Process (Ventolin Medneb) 18:00 Ipratropium Medneb PHA 09/20/24 In Process (Atrovent Medneb) 18:00 Chest Portable XY 09/21/24 Resulted 06:00 Nicotine 14mg/24hr PHA 09/21/24 In Process (Nicoderm 14mg/24hr) 10:00 Lorazepam 2mg/Ml Inj PHA 09/20/24 In Process (Ativan Inj) 14:30 Glucose Blood PHA 09/20/24 In Process (Accu-Chek Comfort 18:00 Insulin R (Human) PHA 09/20/24 In Process (Insulin R) 18:00 Dextrose 50% Syringe PHA 09/20/24 In Process 15:00 Clinimix Per Pharmacy LINDA 09/20/24 In Process 22:00 Amino Acid Infusion PHA 09/20/24 In Process In D10w (Clinimix 4. 22:00 D5 1/2 Ns Potassium PHA 09/21/24 Transmitted 20meq 13:15 Hydromorphone PHA 09/21/24 Transmitted Injection (Dilaudid 13:15 Tpn Per Pharmacy PHA 09/21/24 Transmitted 13:15 Basic Metabolic Panel LAB 09/22/24 Verified 06:00 Complete Blood Count LAB 09/22/24 Verified 06:00 Date of Service: September 21, 2024 Billing Provider: MARISA PLASENCIA MD Common Visit Codes: [id number] INP/OBS CARE(HIGH) MARISA PLASENCIA MD September 21, 2024 13:18
[2024-09-21] MEDS: LIDOCAINE 1% (LOCAL ANESTH.) PF 5ml SDV ID ONE (13:45)
[2024-09-21] MEDS: D5W/SOD CHL 0.45%/KCL 20MEQ 1,000 ML IV SCH (14:12)
[2024-09-21] MEDS: HYDROmorphone HCL 2 MG/ML VL/or syr IV PRN (14:37)
[2024-09-21] MEDS: TPN PER PHARMACY IV NR (22:35)
[2024-09-21] MEDS: SODIUM CHLOR 0.9% PF (SALINE LOCK) 10ML VIAL/SYR IV SCH (22:38)
[2024-09-22] VITALS (14 sets, daily range): BP systolic 116–147; BP diastolic 57–76; PULSE 70–97; RESP 17–20; TEMP 97.8–98.4; O2SAT 94–100
[2024-09-22] MEDS: HYDROmorphone HCL 2 MG/ML VL/or syr IV PRN ×2 (01:10→05:34)
[2024-09-22 07:37] LABS: Basophils # (auto) 0 10 ^3/uL (0-0.2); Basophils % (auto) 0.3 % (0.0-2.0); Eosinophils # (auto) 0 10 ^3/uL (0-0.8); Hematocrit 33.3 % (36.0-46.0); Hemoglobin 10.9 g/dL (12.2-16.2); Lymphocytes # (auto) 1.4 10 ^3/uL (0.4-5.4); Lymphocytes % (auto) 11.1 % (10.0-50.0); Mean Corpuscular Hemoglobin 30.1 pg (28.0-32.0); Mean Corpuscular Hgb Conc. 32.8 g/dL (32.0-36.0); Monocytes % (auto) 7.7 % (0.0-12.0); Neutrophils # (auto) 10.4 10 ^3/uL (1.6-8.6); Neutrophils % (auto) 80.9 % (37.0-80.0); Platelet Count (auto) 245 10^3/uL (140-450); Red Blood Cells 3.62 10^6/uL (4.0-5.20); Red Cell Distribution Width 13.3 % (11.8-14.3); White Blood Cell 12.8 10^3/uL (4.4-10.8)
[2024-09-22 08:03] LABS: Alanine Aminotransferase 18 U/L (7-40); Alkaline Phosphatase 53 U/L (46-116); Anion Gap 7 (5-15); BUN/Creatinine Ratio 12.9 (10.0-20.0); Calcium 9.1 mg/dL (8.7-10.4); Carbon Dioxide 27 mmol/L (20-31); Glucose 103 mg/dL (74-106); Magnesium 2.1 mg/dL (1.6-2.6); Potassium 3.5 mmol/L (3.5-5.1); Sodium 142 mmol/L (136-145); Total Protein 5.7 g/dL (5.7-8.2)
[2024-09-22 08:04] LABS: Albumin 3.5 g/dL (3.2-4.8); Aspartate Aminotransferase 20 U/L (13-40)
[2024-09-22 08:05] LABS: Bilirubin, Total 0.3 mg/dL (0.2-1.0); Blood Urea Nitrogen 8 mg/dL (9-23); Chloride 108 mmol/L (98-107); Phosphorus 1.6 mg/dL (2.4-5.1)
--- NOTE | 2024-09-22 10:15 | DVHPN2 ---
Subjective Date Seen: September 22, 2024 Post op day Post op day: 2 Patient reports: No new complaints Nursing reports: No new complaints General: Normal HNT: Normal Cardiovascular: Normal Respiratory: Normal Gastrointestinal: Normal Genitourinary: Normal Musculoskeletal: Normal Neurological: Normal Objective Vitals Vital Sign Date Time Temp Pulse Resp B/P (MAP) Pulse Ox O2 Delivery O2 Flow Rate FiO2 09/22/24 09:00 98.0 93 19 134/72 (92) 97 98.0 09/22/24 06:02 Nasal Cannula 3.0 09/22/24 06:02 32 Total Intake and Output 09/21/24 09/21/24 09/22/24 15:00 23:00 07:00 Intake Total 50 ml 100 ml Output Total 120 ml Balance 50 ml -20 ml Medications Current Medications Medications Dose Ordered Sig/Deisy Route Start Time Stop Time Status Last Admin Dose Admin Cefazolin Sodium/ Dextrose 50 ml @ 50 mls/hr Q8H IV 09/20/24 13:00 09/22/24 05:12 50 MLS/HR Metronidazole 100 ml @ 100 mls/hr Q8HR IV 09/20/24 14:00 09/22/24 06:41 100 MLS/HR Pantoprazole Sodium 40 mg DAILY IV 09/21/24 10:00 09/22/24 08:38 40 MG Ondansetron HCl 4 mg Q4HPRN PRN IV 09/20/24 10:15 Nitroglycerin 0.4 mg Q5MINP PRN SL 09/20/24 10:45 Albuterol 2.5 mg Q6HWA NEB 09/20/24 18:00 09/22/24 06:02 2.5 MG Ipratropium [place] 0.5 mg Q6HWA NEB 09/20/24 18:00 09/22/24 06:02 0.5 MG Nicotine 1 patch DAILY TD 09/21/24 10:00 09/22/24 08:38 1 PATCH Lorazepam 0.5 mg Q6HP PRN IV 09/20/24 14:30 Diagnostic Test (Pha) 1 strip Q6HR 09/20/24 18:00 09/22/24 05:27 1 STRIP Insulin Human Regular FOLLOW SLIDING SCALE Q6HR SC 09/20/24 18:00 09/22/24 05:30 2 UNITS Dextrose 50 ml UD IV 09/20/24 15:00 Potassium Chloride/Dextrose/ Sod Cl 1,000 ml @ 100 mls/hr Q10H IV 09/21/24 13:15 09/22/24 06:47 100 MLS/HR Amino Acids 0 ml @ 0 mls/hr PER PHARMACY IV 09/21/24 13:15 Sodium Chloride 10 ml QSHIFT@10,22 IV 09/21/24 22:00 09/22/24 08:54 10 ML Fat Emulsion Intravenous 50 ml/ Sodium Phosphate 40 meq/Magnesium Sulfate 6 meq/ Multivitamins 10 ml/Chromium/ Copper/Manganese/ Zinc 1 ml/Amino Acids/Dextrose 972.5 ml @ 40 mls/hr [id number] IV 09/21/24 22:00 09/22/24 21:59 09/21/24 22:35 40 MLS/HR Hydromorphone HCl 1 mg Q4HPRN PRN IV 09/22/24 01:00 09/22/24 08:39 1 MG Hydromorphone HCl 0.5 mg Q4HPRN PRN IV 09/22/24 01:00 09/22/24 05:34 0.5 MG General: Normal, Well developed, Obese Head/Eyes: Normal ENT: Normal Neck: Normal, Supple Lungs: Normal, Normal inspection Cardiovascular: Normal, Regular rate and rhythm Abdominal: Normal, Soft, No distension Extremities: Normal, No clubbing Labs and Microbiology Laboratory Tests 09/22/24 06:32 Test 09/22/24 06:32 Range/Units Serum Glucose 103 74-106 mg/dL Ass/Plan Labs and/or images reviewed: Labs reviewed by me, Image(s) reviewed by me Problem List * COPD for which she will be placed on bronchodilators. * Tobacco abuse for which she has been advised to quit. She will be placed on nicotine patch. Time spent 11 minutes. * Obesity. * Status post sigmoid colon surgery for colon cancer. She will be placed on IV fluids along with pain medications. Problems(with codes): (1) Status post laparotomy (2) S/P colon resection Assessment/Plan 09/22/24 abdomen soft, non distended, appropriately tender wound clean dry and intact MELISA drain serous sanguinous 10cc denies nausea or vomiting Plan: continue with current treatment patient to use incentive spirometer every hour Prognosis: Good Plan discussed with Dr. White, patient Visit Coding Surgery Date of Service if different f: September 22, 2024 Billing Provider: ALFA WHITE MD Surgery Visit Codes: [id number] INP/OBS CARE(HIGH) TRAV MINER NP September 22, 2024 10:15
--- NOTE | 2024-09-22 12:52 | DVHINCON2 ---
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 PET scan showed no evidence of metastases She underwent a low anterior resection and had minimal margin for anastomosis on 09/20/2024 Patient is seen in room 283 for postop and recovery. She is complaining of moderate amount of lower abdominal pain Patient is currently NPO with an NG tube to low intermittent suction. The patient has also had oncology consultation as [facility] Past Medical History Tobacco use Past Surgical History Colonoscopy Low anterior resection for sigmoid cancer on 09/20/2024 Allergies: Coded Allergies: NO KNOWN ALLERGIES (Unverified , 08/30/24) Home Meds Reported Medications Albuterol Sulfate (Albuterol Sulfate) 2 Mg Tab, 90 MCG PO, MG 09/20/24 Ttzskttgwvx-Ckokrabpoveh-Ebobl (Trelegy Ellipta 100-62.5-25 Mcg/INH) 1 Aer Aer, 1 AER IN, AER 09/20/24 Montelukast Sodium (MONTELUKAST SODIUM) 10 Mg Tab, 10 MG OR, TAB 09/20/24 Montelukast Sodium (MONTELUKAST SODIUM) 10 Mg Tab, 10 MG OR DAILY, TAB 08/30/24 Albuterol Sulfate (VENTOLIN MDI) 90 Mcg Ih, 90 MCG IN PRN, INH 08/30/24 Fmbptmzemdz-Hradvjpedaxk-Pbbcc (Trelegy Ellipta 100-62.5-25 Mcg/INH) 1 Aer Aer, 1 AER IN DAILY, AER 08/30/24 Current Medications Current Medications Medications (Trade) Dose Ordered Sig/Deisy Route PRN Reason Start Time Stop Time Status Last Admin Potassium Chloride/Dextrose/ Sod Cl 1,000 ml @ 100 mls/hr Q10H IV 09/21/24 13:15 09/22/24 06:47 Hydromorphone HCl (Dilaudid Injection) 0.5 mg Q4HPRN PRN IV SEVERE PAIN (7-10 PAIN SCALE) 09/21/24 13:15 09/22/24 00:51 DC 09/21/24 22:48 Amino Acids 0 ml @ 0 mls/hr PER PHARMACY IV 09/21/24 13:15 Sodium Chloride (Saline Lock Ns) 10 ml QSHIFT@10,22 IV 09/21/24 22:00 09/22/24 08:54 Fat Emulsion Intravenous 50 ml/ Sodium Phosphate 40 meq/Magnesium Sulfate 6 meq/ Multivitamins 10 ml/Chromium/ Copper/Manganese/ Zinc 1 ml/Amino Acids/Dextrose 972.5 ml @ 40 mls/hr [id number] IV 09/21/24 22:00 09/22/24 21:59 09/21/24 22:35 Hydromorphone HCl (Dilaudid Injection) 1 mg Q4HPRN PRN IV SEVERE PAIN (7-10 PAIN SCALE) 09/22/24 01:00 09/22/24 08:39 Hydromorphone HCl (Dilaudid Injection) 0.5 mg Q4HPRN PRN IV MODERATE PAIN (4-6 PAIN SCALE) 09/22/24 01:00 09/22/24 10:48 Vital Signs Vital Signs Date Time Temp Pulse Resp B/P (MAP) Pulse Ox O2 Delivery O2 Flow Rate FiO2 09/22/24 11:50 97 18 100 09/22/24 11:42 Nasal Cannula 3.0 09/22/24 11:42 32 09/22/24 10:48 123/82 09/22/24 09:00 98.0 98.0 Physical Exam General: Normal, Well developed, mild distress Head/Eyes: Normal ENT: Normal Neck: Normal, Supple Lungs: Normal, Normal inspection Cardiovascular: Normal, Regular rate and rhythm Abdominal: Normal, Soft, No distension; wounds clean and intact Extremities no clubbing cyanosis or edema , patient has pneumatic boots Neuro she appears to be alert oriented x3 with no focal deficit Labs/Diagnostic Data Labs Test 09/22/24 11:57 09/22/24 06:32 09/21/24 05:46 09/20/24 17:01 Range/Units POC Glucose 109 H 70-106 mg/dl White Blood Count 12.8 #H 4.4-10.8 10^3/uL Red Blood Count 3.62 L 4.0-5.20 10^6/uL Hemoglobin 10.9 L 12.2-16.2 g/dL Hematocrit 33.3 L 36.0-46.0 % Mean Corpuscular Volume 92.0 80.0-100.0 fL Mean Corpuscular Hemoglobin 30.1 28.0-32.0 pg Mean Corpuscular Hemoglobin Concent 32.8 32.0-36.0 g/dL Red Cell Distribution Width 13.3 11.8-14.3 % Platelet Count 245 140-450 10^3/uL Mean Platelet Volume 8.2 6.9-10.8 fL Neutrophils (%) (Auto) 80.9 H 37.0-80.0 % Lymphocytes (%) (Auto) 11.1 10.0-50.0 % Monocytes (%) (Auto) 7.7 0.0-12.0 % Eosinophils (%) (Auto) 0.0 0.0-7.0 % Basophils (%) (Auto) 0.3 0.0-2.0 % Neutrophils # (Auto) 10.4 H 1.6-8.6 10 ^3/uL Lymphocytes # (Auto) 1.4 0.4-5.4 10 ^3/uL Monocytes # (Auto) 1.0 0-1.3 10 ^3/uL Eosinophils # (Auto) 0 0-0.8 10 ^3/uL Basophils # (Auto) 0 0-0.2 10 ^3/uL Nucleated Red Blood Cells 0.0 % Sodium Level 142 136-145 mmol/L Potassium Level 3.5 3.5-5.1 mmol/L Chloride Level 108 H 98-107 mmol/L Carbon Dioxide Level 27 20-31 mmol/L Anion Gap 7 5-15 Blood Urea Nitrogen 8 L 9-23 mg/dL Creatinine 0.62 0.550-1.02 mg/dL Glomerular Filtration Rate Calc 112 >90 mL/min BUN/Creatinine Ratio 12.9 10.0-20.0 Serum Glucose 103 74-106 mg/dL Calcium Level 9.1 8.7-10.4 mg/dL Phosphorus Level 1.6 L 2.4-5.1 mg/dL Magnesium Level 2.1 1.6-2.6 mg/dL Total Bilirubin 0.3 0.2-1.0 mg/dL Aspartate Amino Transferase (AST) 20 13-40 U/L Alanine Aminotransferase (ALT) 18 7-40 U/L Alkaline Phosphatase 53 46-116 U/L Total Protein 5.7 5.7-8.2 g/dL Albumin 3.5 3.2-4.8 g/dL Differential Total Cells Counted 100.0 100 Neutrophils % (Manual) 91 H 37.0-80.0 Band Neutrophils % (Manual) 0 Lymphocytes % (Manual) 3 L 10.0-50.0 Monocytes % (Manual) 6 0-12 Eosinophils % (Manual) 0 0-7 Basophils % (Manual) 0 0.0-2.0 Metamyelocytes % (manual) 0 Myelocytes % (Manual) 0 Promyelocytes % (Manual) 0 Blast Cells % (Manual) 0 Reactive Lymphocytes 0 Platelet Estimate Adequate Triglycerides Level 56 < 150 mg/dL Test 09/18/24 11:47 Range/Units Prothrombin Time 11.1 9.3-11.8 sec Prothrombin Time INR 1.05 0.9-1.15 Activated Partial Thromboplast Time 28.4 24.5-34.5 SEC Urine Color Light-yellow Yellow Urine Clarity Clear Clear Urine pH 6.5 5.0-9.0 Urine Specific [place] 1.008 1.001-1.035 Urine Protein Negative Negative Urine Ketones Negative Negative Urine Blood Negative Negative /uL Urine Nitrite Negative Negative Urine Bilirubin Negative Negative Urine Urobilinogen Normal Negative mg/dL Urine Leukocyte Esterase Negative Negative /uL Urine RBC None seen 0 - 4 /hpf Urine Microscopic WBC 0-5 /HPF Urine Squamous Epithelial Cells None seen <5 /hpf Urine Bacteria None seen None Seen /hpf Urine Glucose Normal Normal mg/dL Beta HCG, Quantitative 4.0 1.5-4.2 mIU/mL Chest x-ray IMPRESSION: Cardiomegaly without overt failure. Problems(with codes): (1) Adenocarcinoma of sigmoid colon (2) S/P colon resection (3) Status post laparotomy Plan/Recommendation Plan Patient is to be kept NPO NG tube to low intermittent suction IV fluid hydration PICC line has been placed and patient has been started on TPN Supportive care Broad-spectrum antibiotics Pain control Surgical follow up Await final pathology Patient was advised to take her time with her recovery as she has a low anastomosis Plan discussed with: Patient, Other (Dr. Ruiz and Dr White) CHAZ LAU MD September 22, 2024 12:52
[2024-09-22] MEDS ORDERED: BENZOCAINE (DENTAL) 20 % SPRAY 60ML MT ONE (13:28)
[2024-09-22] MEDS: SODIUM PHOSPHATES 40 MEQ in D5W 5% 250 ML IV ONE (15:06)
[2024-09-22] MEDS: POTASSIUM PHOSPHATE 44 MEQ in D5W 5% 250 ML IV ONE (17:18)
[2024-09-22] MEDS: TPN PER PHARMACY IV NR (23:44)
[2024-09-23] VITALS (18 sets, daily range): BP systolic 111–138; BP diastolic 67–76; PULSE 78–101; RESP 12–20; TEMP 97.7–98.6; O2SAT 94–99
--- NOTE | 2024-09-23 09:34 | DVHPN2 ---
Progress Note Date Seen: September 23, 2024 Medical Necessity Reason Pt with a Central, PICC or Fol: Yes The following are medically ne: Cassidy Catheter Reason for cassidy catheter: Strict I&O Objective vital signs Vital Sign Date Time Temp Pulse Resp B/P (MAP) Pulse Ox O2 Delivery O2 Flow Rate FiO2 09/23/24 08:43 98.4 85 16 131/69 (89) 97 98.4 09/23/24 08:02 Nasal Cannula* 2 28 Total Intake and Output 09/22/24 09/22/24 09/23/24 15:00 23:00 07:00 Intake Total 150 ml 150 ml Output Total 925 ml Balance 150 ml -775 ml medications Current Medications Medications Dose Ordered Sig/Deisy Route Start Time Stop Time Status Last Admin Dose Admin Cefazolin Sodium/ Dextrose 50 ml @ 50 mls/hr Q8H IV 09/20/24 13:00 09/23/24 05:37 50 MLS/HR Metronidazole 100 ml @ 100 mls/hr Q8HR IV 09/20/24 14:00 09/23/24 06:36 100 MLS/HR Pantoprazole Sodium 40 mg DAILY IV 09/21/24 10:00 09/22/24 08:38 40 MG Ondansetron HCl 4 mg Q4HPRN PRN IV 09/20/24 10:15 Nitroglycerin 0.4 mg Q5MINP PRN SL 09/20/24 10:45 Albuterol 2.5 mg Q6HWA NEB 09/20/24 18:00 09/23/24 07:14 2.5 MG Ipratropium [place] 0.5 mg Q6HWA NEB 09/20/24 18:00 09/23/24 07:14 0.5 MG Nicotine 1 patch DAILY TD 09/21/24 10:00 09/22/24 08:38 1 PATCH Lorazepam 0.5 mg Q6HP PRN IV 09/20/24 14:30 Diagnostic Test (Pha) 1 strip Q6HR 09/20/24 18:00 09/23/24 06:36 1 STRIP Insulin Human Regular FOLLOW SLIDING SCALE Q6HR SC 09/20/24 18:00 09/22/24 05:30 2 UNITS Dextrose 50 ml UD IV 09/20/24 15:00 Potassium Chloride/Dextrose/ Sod Cl 1,000 ml @ 100 mls/hr Q10H IV 09/21/24 13:15 09/23/24 05:36 100 MLS/HR Amino Acids 0 ml @ 0 mls/hr PER PHARMACY IV 09/21/24 13:15 Sodium Chloride 10 ml QSHIFT@10,22 IV 09/21/24 22:00 09/22/24 23:00 10 ML Hydromorphone HCl 1 mg Q4HPRN PRN IV 09/22/24 01:00 09/23/24 07:49 1 MG Hydromorphone HCl 0.5 mg Q4HPRN PRN IV 09/22/24 01:00 09/23/24 03:46 0.5 MG Fat Emulsion Intravenous 100 ml/Potassium Phosphate 44 meq/ Calcium Gluconate 2.3 meq/Magnesium Sulfate 10 meq/ Multivitamins 10 ml/Chromium/ Copper/Manganese/ Zinc 1 ml/Amino Acids/Dextrose 1,228.4462 ml @ 51 mls/hr Q24H6M IV 09/22/24 22:00 09/23/24 21:59 09/22/24 23:44 51 MLS/HR laboratory and microbiology Laboratory Tests 09/22/24 06:32 Test 09/22/24 06:32 Range/Units Serum Glucose 103 74-106 mg/dL Problem List/Assessment/Plan Problem List/Assessment/Plan 09/21/24 poor pain control, wound zack and well approximated, expalined Operative findings, needs to remain NPO with NGT till has a BOWEL MOVEMENT , will keep at bed rest the next 72 hours. in order to minimize tension of rectal anastomosis 09/23/24 feels well, abdomen non distended, appropriately tender, wound clean and well approximated, drainage per MELISA drain serous. Continue as is, will allow Toradol to help woith pain control Plan discussed with: Patient Dietary Evaluation Review Comments: 1) Advance TPN to meet at least 75% estimated needs 2) Advance to low fat diet as medically feasible 3) Continue current plan of care Expected Outcomes/Goals: To meet >75% estimated needs Fu 2-3 days ALFA BETHEA MD September 23, 2024 09:34
[2024-09-23 10:29] LABS: Alanine Aminotransferase 17 U/L (7-40); Albumin 3.9 g/dL (3.2-4.8); Alkaline Phosphatase 58 U/L (46-116); Anion Gap 8 (5-15); Aspartate Aminotransferase 19 U/L (13-40); BUN/Creatinine Ratio 17.5 (10.0-20.0); Blood Urea Nitrogen 10 mg/dL (9-23); Calcium 9.4 mg/dL (8.7-10.4); Carbon Dioxide 28 mmol/L (20-31); Chloride 104 mmol/L (98-107); Glucose 105 mg/dL (74-106); Magnesium 1.9 mg/dL (1.6-2.6); Potassium 3.7 mmol/L (3.5-5.1); Sodium 140 mmol/L (136-145); Total Protein 6.3 g/dL (5.7-8.2)
[2024-09-23 10:30] LABS: Bilirubin, Total 0.5 mg/dL (0.2-1.0); Phosphorus 3.3 mg/dL (2.4-5.1)
--- NOTE | 2024-09-23 15:10 | DVHPN2 ---
Subjective The patient seen and examined at bedside. Pain is hard to control Reviewed: Care Plan, H&P, Labs, Medications, Previous Orders, Radiology Changes from previous H/P or p: No Changes Objective Vitals Vital Signs Date Time Temp Pulse Resp B/P (MAP) Pulse Ox O2 Delivery O2 Flow Rate FiO2 09/23/24 14:10 95 15 127/71 09/23/24 12:36 98.5 95 98.5 09/23/24 12:34 Nasal Cannula 2.0 09/23/24 12:34 28 Intake/Output Intake and Output 09/23/24 07:00 Intake Total 300 ml Output Total 925 ml Balance -625 ml Intake Oral 0 ml IV Total 300 ml Output Urine Total 925 ml General Appearance: Alert, Oriented X3, Cooperative, No acute distress HEENT: Atraumatic, PERRLA, EOMI, Mucous membr. moist/pink Neck: Supple Lungs: Clear to auscultation, Normal air movement Cardiovascular: Regular rate, Normal S1, Normal S2, No murmurs, Gallops, Rubs Abdomen: Normal bowel sounds, Soft, No tenderness Neuro: Cranial nerves 3-12 NL Psych/Mental Status: Mental status NL Medications Current Medications Medications Dose Ordered Sig/Deisy Route Start Time Stop Time Status Last Admin Dose Admin Cefazolin Sodium/ Dextrose 50 ml @ 50 mls/hr Q8H IV 09/20/24 13:00 09/23/24 13:05 50 MLS/HR Metronidazole 100 ml @ 100 mls/hr Q8HR IV 09/20/24 14:00 09/23/24 14:25 100 MLS/HR Pantoprazole Sodium 40 mg DAILY IV 09/21/24 10:00 09/23/24 10:06 40 MG Ondansetron HCl 4 mg Q4HPRN PRN IV 09/20/24 10:15 Nitroglycerin 0.4 mg Q5MINP PRN SL 09/20/24 10:45 Albuterol 2.5 mg Q6HWA NEB 09/20/24 18:00 09/23/24 12:34 2.5 MG Ipratropium [place] 0.5 mg Q6HWA NEB 09/20/24 18:00 09/23/24 12:34 0.5 MG Nicotine 1 patch DAILY TD 09/21/24 10:00 09/23/24 10:07 1 PATCH Lorazepam 0.5 mg Q6HP PRN IV 09/20/24 14:30 Diagnostic Test (Pha) 1 strip Q6HR 09/20/24 18:00 09/23/24 12:00 1 STRIP Insulin Human Regular FOLLOW SLIDING SCALE Q6HR SC 09/20/24 18:00 09/22/24 05:30 2 UNITS Dextrose 50 ml UD IV 09/20/24 15:00 Potassium Chloride/Dextrose/ Sod Cl 1,000 ml @ 100 mls/hr Q10H IV 09/21/24 13:15 09/23/24 21:59 09/23/24 13:05 100 MLS/HR Amino Acids 0 ml @ 0 mls/hr PER PHARMACY IV 09/21/24 13:15 Sodium Chloride 10 ml QSHIFT@10,22 IV 09/21/24 22:00 09/23/24 10:06 10 ML Hydromorphone HCl 1 mg Q4HPRN PRN IV 09/22/24 01:00 09/23/24 11:49 1 MG Hydromorphone HCl 0.5 mg Q4HPRN PRN IV 09/22/24 01:00 09/23/24 14:10 0.5 MG Fat Emulsion Intravenous 100 ml/Potassium Phosphate 44 meq/ Calcium Gluconate 2.3 meq/Magnesium Sulfate 10 meq/ Multivitamins 10 ml/Chromium/ Copper/Manganese/ Zinc 1 ml/Amino Acids/Dextrose 1,228.4462 ml @ 51 mls/hr Q24H6M IV 09/22/24 22:00 09/23/24 21:59 09/22/24 23:44 51 MLS/HR Fat Emulsion Intravenous 150 ml/Sodium Chloride 10 meq/ Sodium Acetate 10 meq/Potassium Chloride 20 meq/ Potassium Phosphate 30.8 meq/Calcium Gluconate 2.3 meq/ Magnesium Sulfate 16 meq/ Multivitamins 10 ml/Chromium/ Copper/Manganese/ Zinc 1 ml/Amino Acids/Dextrose 1,444.4462 ml @ 60 mls/hr Q24H5M IV 09/23/24 22:00 09/24/24 21:59 Potassium Chloride/Dextrose/ Sod Cl 1,000 ml @ 80 mls/hr [id number] IV 09/23/24 22:00 Laboratory Results Laboratory Tests 09/22/24 06:32 09/23/24 09:51 Chemistry Test 09/23/24 09:51 Albumin 3.9 g/dL (3.2-4.8) Calcium Level 9.4 mg/dL (8.7-10.4) Magnesium Level 1.9 mg/dL (1.6-2.6) Phosphorus Level 3.3 mg/dL (2.4-5.1) Total Protein 6.3 g/dL (5.7-8.2) LFT Test 09/23/24 09:51 Alanine Aminotransferase (ALT) 17 U/L (7-40) Alkaline Phosphatase 58 U/L (46-116) Aspartate Amino Transferase (AST) 19 U/L (13-40) Total Bilirubin 0.5 mg/dL (0.2-1.0) Urinalysis Test 09/18/24 11:47 Urine Color Light-yellow (Yellow) Urine Clarity Clear (Clear) Urine pH 6.5 (5.0-9.0) Urine Specific [place] 1.008 (1.001-1.035) Urine Protein Negative (Negative) Urine Ketones Negative (Negative) Urine Blood Negative /uL (Negative) Urine Nitrite Negative (Negative) Urine Bilirubin Negative (Negative) Urine Urobilinogen Normal mg/dL (Negative) Urine Leukocyte Esterase Negative /uL (Negative) Urine RBC None seen /hpf (0 - 4) Urine Microscopic WBC /HPF (0-5) Urine Squamous Epithelial Cells None seen /hpf (<5) Urine Bacteria None seen /hpf (None Seen) Urine Glucose Normal mg/dL (Normal) Labs and/or images reviewed: Labs reviewed by me Assessment/Plan Assessment/Plan COPD Tobacco abuse Obesity Status post sigmoid surgery for colon cancer Continuing management. Continuing with IV fluids Contributing with pain medication Advised to stop smoking Plan discussed with: Patient Date of Service: September 22, 2024 Billing Provider: URSULA TITUS MD Common Visit Codes: [id number] INP/OBS CARE(HIGH) URSULA TITUS MD September 23, 2024 15:09
--- NOTE | 2024-09-23 15:45 | DVHPN2 ---
Subjective The patient seen and examined at bedside. Pain is hard to control Reviewed: Care Plan, H&P, Labs, Medications, Previous Orders, Radiology Objective Vitals Vital Signs Date Time Temp Pulse Resp B/P (MAP) Pulse Ox O2 Delivery O2 Flow Rate FiO2 09/23/24 14:10 95 15 127/71 09/23/24 12:36 98.5 95 98.5 09/23/24 12:34 Nasal Cannula 2.0 09/23/24 12:34 28 Intake/Output Intake and Output 09/23/24 07:00 Intake Total 300 ml Output Total 925 ml Balance -625 ml Intake Oral 0 ml IV Total 300 ml Output Urine Total 925 ml General Appearance: Alert, Oriented X3, Cooperative, No acute distress HEENT: Atraumatic, PERRLA, EOMI, Mucous membr. moist/pink Neck: Supple Lungs: Clear to auscultation, Normal air movement Cardiovascular: Regular rate, Normal S1, Normal S2, No murmurs, Gallops, Rubs Abdomen: Normal bowel sounds, Soft, No tenderness Neuro: Cranial nerves 3-12 NL Psych/Mental Status: Mental status NL Medications Current Medications Medications Dose Ordered Sig/Deisy Route Start Time Stop Time Status Last Admin Dose Admin Cefazolin Sodium/ Dextrose 50 ml @ 50 mls/hr Q8H IV 09/20/24 13:00 09/23/24 13:05 50 MLS/HR Metronidazole 100 ml @ 100 mls/hr Q8HR IV 09/20/24 14:00 09/23/24 14:25 100 MLS/HR Pantoprazole Sodium 40 mg DAILY IV 09/21/24 10:00 09/23/24 10:06 40 MG Ondansetron HCl 4 mg Q4HPRN PRN IV 09/20/24 10:15 Nitroglycerin 0.4 mg Q5MINP PRN SL 09/20/24 10:45 Albuterol 2.5 mg Q6HWA NEB 09/20/24 18:00 09/23/24 12:34 2.5 MG Ipratropium [place] 0.5 mg Q6HWA NEB 09/20/24 18:00 09/23/24 12:34 0.5 MG Nicotine 1 patch DAILY TD 09/21/24 10:00 09/23/24 10:07 1 PATCH Lorazepam 0.5 mg Q6HP PRN IV 09/20/24 14:30 Diagnostic Test (Pha) 1 strip Q6HR 09/20/24 18:00 09/23/24 12:00 1 STRIP Insulin Human Regular FOLLOW SLIDING SCALE Q6HR SC 09/20/24 18:00 09/22/24 05:30 2 UNITS Dextrose 50 ml UD IV 09/20/24 15:00 Potassium Chloride/Dextrose/ Sod Cl 1,000 ml @ 100 mls/hr Q10H IV 09/21/24 13:15 09/23/24 21:59 09/23/24 13:05 100 MLS/HR Amino Acids 0 ml @ 0 mls/hr PER PHARMACY IV 09/21/24 13:15 Sodium Chloride 10 ml QSHIFT@10,22 IV 09/21/24 22:00 09/23/24 10:06 10 ML Hydromorphone HCl 1 mg Q4HPRN PRN IV 09/22/24 01:00 09/23/24 11:49 1 MG Hydromorphone HCl 0.5 mg Q4HPRN PRN IV 09/22/24 01:00 09/23/24 14:10 0.5 MG Fat Emulsion Intravenous 100 ml/Potassium Phosphate 44 meq/ Calcium Gluconate 2.3 meq/Magnesium Sulfate 10 meq/ Multivitamins 10 ml/Chromium/ Copper/Manganese/ Zinc 1 ml/Amino Acids/Dextrose 1,228.4462 ml @ 51 mls/hr Q24H6M IV 09/22/24 22:00 09/23/24 21:59 09/22/24 23:44 51 MLS/HR Fat Emulsion Intravenous 150 ml/Sodium Chloride 10 meq/ Sodium Acetate 10 meq/Potassium Chloride 20 meq/ Potassium Phosphate 30.8 meq/Calcium Gluconate 2.3 meq/ Magnesium Sulfate 16 meq/ Multivitamins 10 ml/Chromium/ Copper/Manganese/ Zinc 1 ml/Amino Acids/Dextrose 1,444.4462 ml @ 60 mls/hr Q24H5M IV 09/23/24 22:00 09/24/24 21:59 Potassium Chloride/Dextrose/ Sod Cl 1,000 ml @ 80 mls/hr [id number] IV 09/23/24 22:00 Laboratory Results Laboratory Tests 09/22/24 06:32 09/23/24 09:51 Chemistry Test 09/23/24 09:51 Albumin 3.9 g/dL (3.2-4.8) Calcium Level 9.4 mg/dL (8.7-10.4) Magnesium Level 1.9 mg/dL (1.6-2.6) Phosphorus Level 3.3 mg/dL (2.4-5.1) Total Protein 6.3 g/dL (5.7-8.2) LFT Test 09/23/24 09:51 Alanine Aminotransferase (ALT) 17 U/L (7-40) Alkaline Phosphatase 58 U/L (46-116) Aspartate Amino Transferase (AST) 19 U/L (13-40) Total Bilirubin 0.5 mg/dL (0.2-1.0) Urinalysis Test 09/18/24 11:47 Urine Color Light-yellow (Yellow) Urine Clarity Clear (Clear) Urine pH 6.5 (5.0-9.0) Urine Specific [place] 1.008 (1.001-1.035) Urine Protein Negative (Negative) Urine Ketones Negative (Negative) Urine Blood Negative /uL (Negative) Urine Nitrite Negative (Negative) Urine Bilirubin Negative (Negative) Urine Urobilinogen Normal mg/dL (Negative) Urine Leukocyte Esterase Negative /uL (Negative) Urine RBC None seen /hpf (0 - 4) Urine Microscopic WBC /HPF (0-5) Urine Squamous Epithelial Cells None seen /hpf (<5) Urine Bacteria None seen /hpf (None Seen) Urine Glucose Normal mg/dL (Normal) Assessment/Plan Assessment/Plan COPD Tobacco abuse Obesity Status post sigmoid surgery for colon cancer Continuing management. Continuing with IV fluids Contributing with pain medication Advised to stop smoking URSULA TITUS MD September 23, 2024 15:45
[2024-09-23] MEDS: TPN PER PHARMACY IV NR (21:44)
[2024-09-24] VITALS (16 sets, daily range): BP systolic 113–123; BP diastolic 51–75; PULSE 80–115; RESP 17–20; TEMP 97.4–98.9; O2SAT 93–100
[2024-09-24] MEDS: D5W/SOD CHL 0.45%/KCL 20MEQ 1,000 ML IV SCH (00:25)
[2024-09-24 07:08] LABS: Hematocrit 39.3 % (36.0-46.0); Mean Corpuscular Hgb Conc. 30.6 g/dL (32.0-36.0); Mean Corpuscular Volume 107.8 fL (80.0-100.0); Platelet Count (auto) 261 10^3/uL (140-450); Red Blood Cells 3.64 10^6/uL (4.0-5.20); Red Cell Distribution Width 14.7 % (11.8-14.3); White Blood Cell 8.6 10^3/uL (4.4-10.8)
[2024-09-24 07:10] LABS: Basophils % (manual) 0 (0.0-2.0); Blast Cells 0; Metamyelocytes % 0; Myelocytes % 0; Promyelocytes % 0; Reactive Lymphocytes 0
[2024-09-24 07:22] LABS: Band Neutrophils % (manual) 2; Eosinophils % (manual) 3 (0-7); Lymphocytes % (manual) 15 (10.0-50.0); Monocytes % (manual) 8 (0-12)
[2024-09-24 07:24] LABS: Hypochromia Moderate; Macrocytosis Moderate; Platelet Estimate Adequate
--- NOTE | 2024-09-24 07:41 | DVHPN2 ---
Subjective Date Seen: September 24, 2024 Post op day Post op day: 5 Patient reports: No new complaints Nursing reports: No new complaints General: Normal HNT: Normal Cardiovascular: Normal Respiratory: Normal Gastrointestinal: Normal Genitourinary: Normal Musculoskeletal: Normal Neurological: Normal Objective Vitals Vital Sign Date Time Temp Pulse Resp B/P (MAP) Pulse Ox O2 Delivery O2 Flow Rate FiO2 09/24/24 06:58 96 17 127/69 09/24/24 06:03 100 09/24/24 05:57 Nasal Cannula 1.0 09/24/24 05:57 24 09/24/24 05:01 97.4 97.4 Total Intake and Output 09/23/24 09/23/24 09/24/24 15:00 23:00 07:00 Intake Total 1150 ml Output Total 1435 ml 1140 ml Balance -285 ml -1140 ml Medications Current Medications Medications Dose Ordered Sig/Deisy Route Start Time Stop Time Status Last Admin Dose Admin Cefazolin Sodium/ Dextrose 50 ml @ 50 mls/hr Q8H IV 09/20/24 13:00 09/24/24 05:16 50 MLS/HR Metronidazole 100 ml @ 100 mls/hr Q8HR IV 09/20/24 14:00 09/24/24 06:43 100 MLS/HR Pantoprazole Sodium 40 mg DAILY IV 09/21/24 10:00 09/23/24 10:06 40 MG Ondansetron HCl 4 mg Q4HPRN PRN IV 09/20/24 10:15 Nitroglycerin 0.4 mg Q5MINP PRN SL 09/20/24 10:45 Albuterol 2.5 mg Q6HWA NEB 09/20/24 18:00 09/24/24 05:57 2.5 MG Ipratropium [place] 0.5 mg Q6HWA NEB 09/20/24 18:00 09/24/24 05:57 0.5 MG Nicotine 1 patch DAILY TD 09/21/24 10:00 09/23/24 10:07 1 PATCH Lorazepam 0.5 mg Q6HP PRN IV 09/20/24 14:30 Diagnostic Test (Pha) 1 strip Q6HR 09/20/24 18:00 09/24/24 05:50 1 STRIP Insulin Human Regular FOLLOW SLIDING SCALE Q6HR SC 09/20/24 18:00 09/22/24 05:30 2 UNITS Dextrose 50 ml UD IV 09/20/24 15:00 Amino Acids 0 ml @ 0 mls/hr PER PHARMACY IV 09/21/24 13:15 Sodium Chloride 10 ml QSHIFT@10,22 IV 09/21/24 22:00 09/23/24 22:00 10 ML Hydromorphone HCl 1 mg Q4HPRN PRN IV 09/22/24 01:00 09/24/24 05:16 1 MG Hydromorphone HCl 0.5 mg Q4HPRN PRN IV 09/22/24 01:00 09/24/24 06:58 0.5 MG Fat Emulsion Intravenous 150 ml/Sodium Chloride 10 meq/ Sodium Acetate 10 meq/Potassium Chloride 20 meq/ Potassium Phosphate 30.8 meq/Calcium Gluconate 2.3 meq/ Magnesium Sulfate 16 meq/ Multivitamins 10 ml/Chromium/ Copper/Manganese/ Zinc 1 ml/Amino Acids/Dextrose 1,444.4462 ml @ 60 mls/hr Q24H5M IV 09/23/24 22:00 09/24/24 21:59 09/23/24 21:44 60 MLS/HR Potassium Chloride/Dextrose/ Sod Cl 1,000 ml @ 80 mls/hr [id number] IV 09/23/24 22:00 09/24/24 00:25 80 MLS/HR General: Normal, Well developed, Obese Head/Eyes: Normal ENT: Normal Neck: Normal, Supple Lungs: Normal, Normal inspection Cardiovascular: Normal, Regular rate and rhythm Abdominal: Normal, Soft, No distension Extremities: Normal, No clubbing Labs and Microbiology Laboratory Tests 09/24/24 04:55 09/23/24 09:51 Test 09/23/24 09:51 Range/Units Serum Glucose 105 74-106 mg/dL Ass/Plan Labs and/or images reviewed: Labs reviewed by me Problem List 09/21/24 poor pain control, wound zack and well approximated, expalined Operative findings, needs to remain NPO with NGT till has a BOWEL MOVEMENT , will keep at bed rest the next 72 hours. in order to minimize tension of rectal anastomosis 09/23/24 feels well, abdomen non distended, appropriately tender, wound clean and well approximated, drainage per MELISA drain serous. Continue as is, will allow Toradol to help woith pain control Assessment/Plan 05/ s/p colon resection POD#3 abdomen soft, non distended, appropriately tender wound clean dry and intact MELISA drain serous sanguinous 10cc denies nausea or vomiting Plan: continue with current treatment patient to use incentive spirometer every hour 09/24/ s/p colon resection POD#5 abdomen soft, non distended, appropriately tender wound clean dry and intact MELISA drain minimal serous sanguinous denies nausea or vomiting patient unsure if she passed any gas Plan: continue with current treatment patient to use incentive spirometer every hour possible ambulation on Wednesday Prognosis: Good Plan discussed with patient, Dr. White Visit Coding Surgery Date of Service if different f: September 24, 2024 Billing Provider: ALFA WHITE MD Surgery Visit Codes: [id number] INP/OBS CARE(HIGH) [employer] September 24, 2024 07:41
[2024-09-24 10:44] LABS: Alanine Aminotransferase 19 U/L (7-40); Albumin 3.9 g/dL (3.2-4.8); Alkaline Phosphatase 59 U/L (46-116); Anion Gap 6 (5-15); Aspartate Aminotransferase 26 U/L (13-40); BUN/Creatinine Ratio 20.3 (10.0-20.0); Bilirubin, Total 1.1 mg/dL (0.2-1.0); Blood Urea Nitrogen 12 mg/dL (9-23); Calcium 9.2 mg/dL (8.7-10.4); Carbon Dioxide 27 mmol/L (20-31); Chloride 103 mmol/L (98-107); Glucose 81 mg/dL (74-106); Magnesium 2.2 mg/dL (1.6-2.6); Potassium 4.2 mmol/L (3.5-5.1); Sodium 136 mmol/L (136-145); Total Protein 6.2 g/dL (5.7-8.2)
[2024-09-24] MEDS: TPN PER PHARMACY IV NR (22:52)
--- NOTE | 2024-09-24 23:01 | DVHPN2 ---
Subjective The patient seen and examined at bedside. Pain control better today. Reviewed: Care Plan, H&P, Labs, Medications, Previous Orders, Radiology Changes from previous H/P or p: No Changes Objective Vitals Vital Signs Date Time Temp Pulse Resp B/P (MAP) Pulse Ox O2 Delivery O2 Flow Rate FiO2 09/24/24 21:00 98.9 98 20 120/54 (76) 94 98.9 09/24/24 19:05 Room Air 0.0 09/24/24 19:05 21 Intake/Output Intake and Output 09/24/24 07:00 Intake Total 1150 ml Output Total 2575 ml Balance -1425 ml Intake Oral 0 ml IV Total 1150 ml Output Urine Total 2200 ml Gastric Drainage Total 325 ml Drainage Total 50 ml General Appearance: Alert, Oriented X3, Cooperative, No acute distress HEENT: Atraumatic, PERRLA, EOMI, Mucous membr. moist/pink Neck: Supple Lungs: Clear to auscultation, Normal air movement Cardiovascular: Regular rate, Normal S1, Normal S2, No murmurs, Gallops, Rubs Abdomen: Normal bowel sounds, Soft, No tenderness Neuro: Cranial nerves 3-12 NL Psych/Mental Status: Mental status NL Medications Current Medications Medications Dose Ordered Sig/Deisy Route Start Time Stop Time Status Last Admin Dose Admin Cefazolin Sodium/ Dextrose 50 ml @ 50 mls/hr Q8H IV 09/20/24 13:00 09/24/24 20:48 50 MLS/HR Metronidazole 100 ml @ 100 mls/hr Q8HR IV 09/20/24 14:00 09/24/24 14:58 100 MLS/HR Pantoprazole Sodium 40 mg DAILY IV 09/21/24 10:00 09/24/24 09:09 40 MG Ondansetron HCl 4 mg Q4HPRN PRN IV 09/20/24 10:15 Nitroglycerin 0.4 mg Q5MINP PRN SL 09/20/24 10:45 Albuterol 2.5 mg Q6HWA NEB 09/20/24 18:00 09/24/24 19:10 2.5 MG Ipratropium [place] 0.5 mg Q6HWA NEB 09/20/24 18:00 09/24/24 19:10 0.5 MG Nicotine 1 patch DAILY TD 09/21/24 10:00 09/24/24 09:09 1 PATCH Lorazepam 0.5 mg Q6HP PRN IV 09/20/24 14:30 Diagnostic Test (Pha) 1 strip Q6HR 09/20/24 18:00 09/24/24 16:33 1 STRIP Insulin Human Regular FOLLOW SLIDING SCALE Q6HR SC 09/20/24 18:00 09/24/24 12:18 2 UNITS Dextrose 50 ml UD IV 09/20/24 15:00 Amino Acids 0 ml @ 0 mls/hr PER PHARMACY IV 09/21/24 13:15 Sodium Chloride 10 ml QSHIFT@10,22 IV 09/21/24 22:00 09/24/24 09:09 10 ML Hydromorphone HCl 1 mg Q4HPRN PRN IV 09/22/24 01:00 09/24/24 18:41 1 MG Hydromorphone HCl 0.5 mg Q4HPRN PRN IV 09/22/24 01:00 09/24/24 20:44 0.5 MG Potassium Chloride/Dextrose/ Sod Cl 1,000 ml @ 80 mls/hr [id number] IV 09/23/24 22:00 09/24/24 10:30 80 MLS/HR Fat Emulsion Intravenous 150 ml/Sodium Chloride 20 meq/ Sodium Phosphate 20 meq/Potassium Acetate 10 meq/ Potassium Phosphate 22 meq/ Calcium Gluconate 2.3 meq/Magnesium Sulfate 14 meq/ Multivitamins 10 ml/Amino Acids/ Dextrose 1,588.4462 ml @ 66 mls/hr Q24H5M IV 09/24/24 22:00 09/25/24 21:59 Laboratory Results Laboratory Tests 09/24/24 04:55 09/24/24 10:23 Chemistry Test 09/24/24 10:23 Albumin 3.9 g/dL (3.2-4.8) Calcium Level 9.2 mg/dL (8.7-10.4) Magnesium Level 2.2 mg/dL (1.6-2.6) Phosphorus Level 3.0 mg/dL (2.4-5.1) Total Protein 6.2 g/dL (5.7-8.2) LFT Test 09/24/24 10:23 Alanine Aminotransferase (ALT) 19 U/L (7-40) Alkaline Phosphatase 59 U/L (46-116) Aspartate Amino Transferase (AST) 26 U/L (13-40) Total Bilirubin 1.1 mg/dL (0.2-1.0) H Urinalysis Test 09/18/24 11:47 Urine Color Light-yellow (Yellow) Urine Clarity Clear (Clear) Urine pH 6.5 (5.0-9.0) Urine Specific [place] 1.008 (1.001-1.035) Urine Protein Negative (Negative) Urine Ketones Negative (Negative) Urine Blood Negative /uL (Negative) Urine Nitrite Negative (Negative) Urine Bilirubin Negative (Negative) Urine Urobilinogen Normal mg/dL (Negative) Urine Leukocyte Esterase Negative /uL (Negative) Urine RBC None seen /hpf (0 - 4) Urine Microscopic WBC /HPF (0-5) Urine Squamous Epithelial Cells None seen /hpf (<5) Urine Bacteria None seen /hpf (None Seen) Urine Glucose Normal mg/dL (Normal) Labs and/or images reviewed: Labs reviewed by me Assessment/Plan Assessment/Plan COPD Tobacco abuse Obesity Status post sigmoid surgery for colon cancer Continuing management. Continuing with IV fluids Contributing with pain medication Advised to stop smoking more than 15 minutes Continuing with TPN Waiting for surgeon to cleared the patient for physical therapy , to get out of bed and ambulate This medical document was created using an electronic medical record system with [employer] direct computerized dictation system. Although this document has been carefully reviewed, there may still be some phonetic and typographical errors. These areas are purely typographical due to imperfections of the software programs, and do not reflect any compromise in the patient's medical care. Plan discussed with: Patient Date of Service: September 24, 2024 Billing Provider: URSULA TITUS MD Common Visit Codes: [id number] INP/OBS CARE(HIGH) URSULA TITUS MD September 24, 2024 23:01
[2024-09-25] VITALS (18 sets, daily range): BP systolic 117–124; BP diastolic 57–64; PULSE 95–116; RESP 14–20; TEMP 97.4–99.1; O2SAT 92–100
[2024-09-25 06:01] LABS: Urine Bacteria None Seen /hpf (None Seen)
[2024-09-25 06:14] LABS: Urine Blood 2+ /uL (Negative); Urine Clarity Clear (Clear); Urine Color Light-Orange (Yellow); Urine Mucus FEW (None Seen); Urine Protein, UAD 1+ (Negative); Urine Specific Gravity 1.028 (1.001-1.035); Urine Squamous Epithelial Cell FEW /hpf (<5); Urine Urobilinogen Normal (Negative); Urine WBC 10 /HPF (0-5); Urine pH 5.5 (5.0-9.0)
[2024-09-25 07:12] LABS: Alanine Aminotransferase 19 U/L (7-40); Albumin 3.8 g/dL (3.2-4.8); Alkaline Phosphatase 58 U/L (46-116); Anion Gap 6 (5-15); Aspartate Aminotransferase 24 U/L (13-40); BUN/Creatinine Ratio 24.6 (10.0-20.0); Blood Urea Nitrogen 14 mg/dL (9-23); Calcium 9.3 mg/dL (8.7-10.4); Carbon Dioxide 26 mmol/L (20-31); Chloride 103 mmol/L (98-107); Glucose 97 mg/dL (74-106); Magnesium 2.1 mg/dL (1.6-2.6); Potassium 4.1 mmol/L (3.5-5.1); Total Protein 6.2 g/dL (5.7-8.2)
[2024-09-25 07:13] LABS: Bilirubin, Total 0.8 mg/dL (0.2-1.0)
[2024-09-25 07:15] LABS: Sodium 135 mmol/L (136-145)
--- NOTE | 2024-09-25 10:42 | DVHPN2 ---
Progress Note Date Seen: September 25, 2024 Medical Necessity Reason Pt with a Central, PICC or Fol: Yes The following are medically ne: Cassidy Catheter Reason for cassidy catheter: Strict I&O Objective vital signs Vital Sign Date Time Temp Pulse Resp B/P (MAP) Pulse Ox O2 Delivery O2 Flow Rate FiO2 09/25/24 10:27 103 18 129/57 09/25/24 10:05 95 Nasal Cannula* 1 24 09/25/24 05:00 97.4 97.4 Total Intake and Output 09/24/24 09/24/24 09/25/24 15:00 23:00 07:00 Intake Total 500 ml 150 ml Output Total 1430 ml 15 ml Balance 500 ml -1280 ml -15 ml medications Current Medications Medications Dose Ordered Sig/Deisy Route Start Time Stop Time Status Last Admin Dose Admin Cefazolin Sodium/ Dextrose 50 ml @ 50 mls/hr Q8H IV 09/20/24 13:00 09/25/24 04:42 50 MLS/HR Metronidazole 100 ml @ 100 mls/hr Q8HR IV 09/20/24 14:00 09/25/24 07:03 100 MLS/HR Pantoprazole Sodium 40 mg DAILY IV 09/21/24 10:00 09/24/24 09:09 40 MG Ondansetron HCl 4 mg Q4HPRN PRN IV 09/20/24 10:15 Nitroglycerin 0.4 mg Q5MINP PRN SL 09/20/24 10:45 Albuterol 2.5 mg Q6HWA NEB 09/20/24 18:00 09/25/24 06:19 2.5 MG Ipratropium [place] 0.5 mg Q6HWA NEB 09/20/24 18:00 09/25/24 06:19 0.5 MG Nicotine 1 patch DAILY TD 09/21/24 10:00 09/25/24 09:54 1 PATCH Lorazepam 0.5 mg Q6HP PRN IV 09/20/24 14:30 Diagnostic Test (Pha) 1 strip Q6HR 09/20/24 18:00 09/25/24 06:02 1 STRIP Insulin Human Regular FOLLOW SLIDING SCALE Q6HR SC 09/20/24 18:00 09/25/24 00:51 2 UNITS Dextrose 50 ml UD IV 09/20/24 15:00 Amino Acids 0 ml @ 0 mls/hr PER PHARMACY IV 09/21/24 13:15 Sodium Chloride 10 ml QSHIFT@10,22 IV 09/21/24 22:00 09/25/24 09:57 10 ML Hydromorphone HCl 1 mg Q4HPRN PRN IV 09/22/24 01:00 09/25/24 07:04 1 MG Hydromorphone HCl 0.5 mg Q4HPRN PRN IV 09/22/24 01:00 09/25/24 09:24 0.5 MG Potassium Chloride/Dextrose/ Sod Cl 1,000 ml @ 80 mls/hr [id number] IV 09/23/24 22:00 09/24/24 10:30 80 MLS/HR Fat Emulsion Intravenous 150 ml/Sodium Chloride 20 meq/ Sodium Phosphate 20 meq/Potassium Acetate 10 meq/ Potassium Phosphate 22 meq/ Calcium Gluconate 2.3 meq/Magnesium Sulfate 14 meq/ Multivitamins 10 ml/Amino Acids/ Dextrose 1,588.4462 ml @ 66 mls/hr Q24H5M IV 09/24/24 22:00 09/25/24 21:59 09/24/24 22:52 66 MLS/HR Fat Emulsion Intravenous 200 ml/Sodium Chloride 20 meq/ Sodium Phosphate 20 meq/Potassium Chloride 20 meq/ Magnesium Sulfate 16 meq/ Multivitamins 10 ml/Chromium/ Copper/Manganese/ Zinc 1 ml/Amino Acids/Dextrose 1,735 ml @ 72 mls/hr Q24H6M IV 09/25/24 22:00 09/26/24 21:59 laboratory and microbiology Laboratory Tests 09/25/24 06:40 09/24/24 04:55 Test 09/25/24 06:40 Range/Units Serum Glucose 97 74-106 mg/dL Problem List/Assessment/Plan Problem List/Assessment/Plan 09/21/24 poor pain control, wound zakc and well approximated, expalined Operative findings, needs to remain NPO with NGT till has a BOWEL MOVEMENT , will keep at bed rest the next 72 hours. in order to minimize tension of rectal anastomosis 09/23/24 feels well, abdomen non distended, appropriately tender, wound clean and well approximated, drainage per MELISA drain serous. Continue as is, will allow Toradol to help woith pain control 5/5/25 minimal flatus, no bm, abdomen non distended, will allow ambulation Plan discussed with: Patient Dietary Evaluation Review Comments: 1) Advance TPN to meet at least 75% estimated needs 2) Advance to low fat diet as medically feasible 3) Continue current plan of care Expected Outcomes/Goals: To meet >75% estimated needs Fu 2-3 days ALFA BETHEA MD September 25, 2024 10:42
--- NOTE | 2024-09-25 11:29 | DVHPN2 ---
Progress Note Date Seen: September 25, 2024 Medical Necessity Reason Pt with a Central, PICC or Fol: Yes The following are medically ne: Cassidy Catheter Reason for cassidy catheter: Strict I&O Subjective Patient reports: No new complaints Review of Systems: HEENT:Normal, CVS:Normal, RESPIRATORY:Normal, GI:Normal, :Normal, MSK:Normal, NEURO:Normal Objective vital signs Vital Sign Date Time Temp Pulse Resp B/P (MAP) Pulse Ox O2 Delivery O2 Flow Rate FiO2 09/25/24 11:10 100 20 114/63 09/25/24 10:05 95 Nasal Cannula* 1 24 09/25/24 09:00 98.4 98.4 Total Intake and Output 09/24/24 09/24/24 09/25/24 15:00 23:00 07:00 Intake Total 500 ml 150 ml Output Total 1430 ml 15 ml Balance 500 ml -1280 ml -15 ml medications Current Medications Medications Dose Ordered Sig/Deisy Route Start Time Stop Time Status Last Admin Dose Admin Cefazolin Sodium/ Dextrose 50 ml @ 50 mls/hr Q8H IV 09/20/24 13:00 09/25/24 04:42 50 MLS/HR Metronidazole 100 ml @ 100 mls/hr Q8HR IV 09/20/24 14:00 09/25/24 07:03 100 MLS/HR Pantoprazole Sodium 40 mg DAILY IV 09/21/24 10:00 09/24/24 09:09 40 MG Ondansetron HCl 4 mg Q4HPRN PRN IV 09/20/24 10:15 Nitroglycerin 0.4 mg Q5MINP PRN SL 09/20/24 10:45 Albuterol 2.5 mg Q6HWA NEB 09/20/24 18:00 09/25/24 06:19 2.5 MG Ipratropium [place] 0.5 mg Q6HWA NEB 09/20/24 18:00 09/25/24 06:19 0.5 MG Nicotine 1 patch DAILY TD 09/21/24 10:00 09/25/24 09:54 1 PATCH Lorazepam 0.5 mg Q6HP PRN IV 09/20/24 14:30 Diagnostic Test (Pha) 1 strip Q6HR 09/20/24 18:00 09/25/24 11:19 1 STRIP Insulin Human Regular FOLLOW SLIDING SCALE Q6HR SC 09/20/24 18:00 09/25/24 00:51 2 UNITS Dextrose 50 ml UD IV 09/20/24 15:00 Amino Acids 0 ml @ 0 mls/hr PER PHARMACY IV 09/21/24 13:15 Sodium Chloride 10 ml QSHIFT@10,22 IV 09/21/24 22:00 09/25/24 09:57 10 ML Hydromorphone HCl 1 mg Q4HPRN PRN IV 09/22/24 01:00 09/25/24 11:10 1 MG Hydromorphone HCl 0.5 mg Q4HPRN PRN IV 09/22/24 01:00 09/25/24 09:24 0.5 MG Potassium Chloride/Dextrose/ Sod Cl 1,000 ml @ 80 mls/hr [id number] IV 09/23/24 22:00 09/24/24 10:30 80 MLS/HR Fat Emulsion Intravenous 150 ml/Sodium Chloride 20 meq/ Sodium Phosphate 20 meq/Potassium Acetate 10 meq/ Potassium Phosphate 22 meq/ Calcium Gluconate 2.3 meq/Magnesium Sulfate 14 meq/ Multivitamins 10 ml/Amino Acids/ Dextrose 1,588.4462 ml @ 66 mls/hr Q24H5M IV 09/24/24 22:00 09/25/24 21:59 09/24/24 22:52 66 MLS/HR Fat Emulsion Intravenous 200 ml/Sodium Chloride 20 meq/ Sodium Phosphate 20 meq/Potassium Chloride 20 meq/ Magnesium Sulfate 16 meq/ Multivitamins 10 ml/Chromium/ Copper/Manganese/ Zinc 1 ml/Amino Acids/Dextrose 1,735 ml @ 72 mls/hr Q24H6M IV 09/25/24 22:00 09/26/24 21:59 Examination: GENERAL:Normal, HEENT:Normal, NECK:Normal, LUNGS:Normal, CVS:Normal, ABDOMEN:Normal, ABDOMEN:Abnormal (chandni drain), MSK:Normal, SKIN:Normal, NEURO:Normal, :Normal laboratory and microbiology Laboratory Tests 09/25/24 06:40 09/24/24 04:55 Test 09/25/24 06:40 Range/Units Serum Glucose 97 74-106 mg/dL Problem List/Assessment/Plan Problem List/Assessment/Plan * COPD for which she will be placed on bronchodilators. * Tobacco abuse for which she has been advised to quit. She will be placed on nicotine patch. Time spent 11 minutes. * Obesity. * Status post sigmoid colon surgery for colon cancer. She will be placed on IV fluids along with pain medications, tpn Plan discussed with: Patient My Orders My Orders Orders - MARISA PLASENCIA MD Procedure Category Date Status Time Amino Acid PHA 09/25/24 In Process Infusion... W/Fat 22:00 Comprehensive LAB 09/26/24 Verified Metabolic Panel 04:00 Magnesium LAB 09/26/24 Verified 04:00 Phosphorus LAB 09/26/24 Verified 04:00 Tpn Per Pharmacy LINDA 09/25/24 In Process 22:00 NS PHA 09/25/24 Verified 11:30 Complete Blood Count LAB 09/26/24 Verified 06:00 Comprehensive LAB 09/26/24 Verified Metabolic Panel 06:00 Dietary Evaluation Review Comments: 1) Advance TPN to meet at least 75% estimated needs 2) Advance to low fat diet as medically feasible 3) Continue current plan of care Expected Outcomes/Goals: To meet >75% estimated needs Fu 2-3 days Date of Service: September 25, 2024 Billing Provider: MARISA PLASENCIA MD Common Visit Codes: [id number] INP/OBS CARE(HIGH) MARISA PLASENCIA MD September 25, 2024 11:29
[2024-09-25] MEDS: SODIUM CHLORIDE 0.9% 1,000 ML IV SCH (13:01)
--- NOTE | 2024-09-25 21:47 | DVHPN2 ---
Progress Note - Dictate Date Seen: September 25, 2024 Medical Necessity Reason Pt with a Central, PICC or Fol: Yes The following are medically ne: Cassidy Catheter Reason for cassidy catheter: Strict I&O Subjective Patient seen at bedside resting comfortably;Children at bedside She still has an NG tube to low intermittent suction Patient has started passing some gas but has not had a bowel movement yet Patient ambulated today with a walker vital signs Vital Sign Date Time Temp Pulse Resp B/P (MAP) Pulse Ox O2 Delivery O2 Flow Rate FiO2 09/25/24 20:27 102 18 145/60 09/25/24 20:22 100 09/25/24 20:16 Nasal Cannula* 1 24 09/25/24 17:00 99.1 99.1 Total Intake and Output 09/24/24 09/24/24 09/25/24 15:00 23:00 07:00 Intake Total 500 ml 150 ml Output Total 1430 ml 15 ml Balance 500 ml -1280 ml -15 ml medications Current Medications Medications Dose Ordered Sig/Deisy Route Start Time Stop Time Status Last Admin Dose Admin Cefazolin Sodium/ Dextrose 50 ml @ 50 mls/hr Q8H IV 09/20/24 13:00 09/25/24 20:32 50 MLS/HR Metronidazole 100 ml @ 100 mls/hr Q8HR IV 09/20/24 14:00 09/25/24 15:19 100 MLS/HR Pantoprazole Sodium 40 mg DAILY IV 09/21/24 10:00 09/24/24 09:09 40 MG Ondansetron HCl 4 mg Q4HPRN PRN IV 09/20/24 10:15 Nitroglycerin 0.4 mg Q5MINP PRN SL 09/20/24 10:45 Albuterol 2.5 mg Q6HWA NEB 09/20/24 18:00 09/25/24 20:16 2.[address] [employer] 0.5 mg Q6HWA NEB 09/20/24 18:00 09/25/24 20:16 0.5 MG Nicotine 1 patch DAILY TD 09/21/24 10:00 09/25/24 09:54 1 PATCH Lorazepam 0.5 mg Q6HP PRN IV 09/20/24 14:30 Diagnostic Test (Pha) 1 strip Q6HR 09/20/24 18:00 09/25/24 18:04 1 STRIP Insulin Human Regular FOLLOW SLIDING SCALE Q6HR SC 09/20/24 18:00 09/25/24 00:51 2 UNITS Dextrose 50 ml UD IV 09/20/24 15:00 Amino Acids 0 ml @ 0 mls/hr PER PHARMACY IV 09/21/24 13:15 Sodium Chloride 10 ml QSHIFT@10,22 IV 09/21/24 22:00 09/25/24 09:57 10 ML Hydromorphone HCl 1 mg Q4HPRN PRN IV 09/22/24 01:00 09/25/24 20:27 1 MG Hydromorphone HCl 0.5 mg Q4HPRN PRN IV 09/22/24 01:00 09/25/24 17:51 0.5 MG Fat Emulsion Intravenous 150 ml/Sodium Chloride 20 meq/ Sodium Phosphate 20 meq/Potassium Acetate 10 meq/ Potassium Phosphate 22 meq/ Calcium Gluconate 2.3 meq/Magnesium Sulfate 14 meq/ Multivitamins 10 ml/Amino Acids/ Dextrose 1,588.4462 ml @ 66 mls/hr Q24H5M IV 09/24/24 22:00 09/25/24 21:59 09/24/24 22:52 66 MLS/HR Fat Emulsion Intravenous 200 ml/Sodium Chloride 20 meq/ Sodium Phosphate 20 meq/Potassium Chloride 20 meq/ Magnesium Sulfate 16 meq/ Multivitamins 10 ml/Chromium/ Copper/Manganese/ Zinc 1 ml/Amino Acids/Dextrose 1,735 ml @ 72 mls/hr Q24H6M IV 09/25/24 22:00 09/26/24 21:59 Sodium Chloride 1,000 ml @ 60 mls/hr [id number] IV 09/25/24 11:30 09/25/24 13:01 60 MLS/HR objective General: Normal, Well developed, Obese Head/Eyes: Normal ENT: Normal Neck: Normal, Supple Lungs: Normal, Normal inspection Cardiovascular: Normal, Regular rate and rhythm Abdominal: Normal, Soft, No distension;Some bruising near her surgical site Extremities: Normal, No clubbing laboratory and microbiology Laboratory Tests 09/25/24 06:40 09/24/24 04:55 Test 09/25/24 06:40 Range/Units Serum Glucose 97 74-106 mg/dL Problems(with codes): (1) S/P colon resection (2) Status post laparotomy (3) Adenocarcinoma of sigmoid colon Prognosis Plan Continue IV TPN Physical therapy and ambulation Currently NPO Clear liquid diet and advance only once cleared by surgical consult Await final pathology results Dietary Evaluation Review Comments: 1) Advance TPN to meet at least 75% estimated needs 2) Advance to low fat diet as medically feasible 3) Continue current plan of care Expected Outcomes/Goals: To meet >75% estimated needs Fu 2-3 days Plan discussed with: Patient, Daughter CHAZ LAU MD September 25, 2024 21:47
[2024-09-25] MEDS: TPN PER PHARMACY IV NR (22:27)
[2024-09-26] VITALS (15 sets, daily range): BP systolic 116–148; BP diastolic 56–79; PULSE 58–114; RESP 14–20; TEMP 97.9–98.8; O2SAT 94–100
[2024-09-26 07:06] LABS: Alanine Aminotransferase 20 U/L (7-40); Alkaline Phosphatase 61 U/L (46-116); Chloride 105 mmol/L (98-107)
[2024-09-26 07:07] LABS: Albumin 3.7 g/dL (3.2-4.8); Anion Gap 5 (5-15); Aspartate Aminotransferase 22 U/L (13-40); BUN/Creatinine Ratio 25.5 (10.0-20.0); Basophils # (auto) 0 10 ^3/uL (0-0.2); Basophils % (auto) 0.3 % (0.0-2.0); Bilirubin, Total 0.6 mg/dL (0.2-1.0); Blood Urea Nitrogen 12 mg/dL (9-23); Carbon Dioxide 27 mmol/L (20-31); Eosinophils # (auto) 0.3 10 ^3/uL (0-0.8); Hematocrit 35.2 % (36.0-46.0); Hemoglobin 12.2 g/dL (12.2-16.2); Lymphocytes # (auto) 1.2 10 ^3/uL (0.4-5.4); Magnesium 2.2 mg/dL (1.6-2.6); Mean Corpuscular Hemoglobin 31.1 pg (28.0-32.0); Mean Corpuscular Hgb Conc. 34.7 g/dL (32.0-36.0); Mean Corpuscular Volume 89.5 fL (80.0-100.0); Monocytes # (auto) 1.2 10 ^3/uL (0-1.3); Monocytes % (auto) 12.7 % (0.0-12.0); Neutrophils # (auto) 6.5 10 ^3/uL (1.6-8.6); Phosphorus 2.9 mg/dL (2.4-5.1); Platelet Count (auto) 279 10^3/uL (140-450); Potassium 3.8 mmol/L (3.5-5.1); Red Blood Cells 3.94 10^6/uL (4.0-5.20); Red Cell Distribution Width 13.2 % (11.8-14.3); Sodium 137 mmol/L (136-145); Total Protein 6.2 g/dL (5.7-8.2); White Blood Cell 9.1 10^3/uL (4.4-10.8)
[2024-09-26 07:16] LABS: Glucose 67 mg/dL (74-106)
[2024-09-26 08:03] LABS: Calcium 9.5 mg/dL (8.7-10.4)
--- NOTE | 2024-09-26 10:55 | DVHPN2 ---
Progress Note Date Seen: September 26, 2024 Medical Necessity Reason Pt with a Central, PICC or Fol: Yes The following are medically ne: Cassidy Catheter Reason for cassidy catheter: Strict I&O Subjective Patient reports: No new complaints Review of Systems: HEENT:Normal, CVS:Normal, RESPIRATORY:Normal, GI:Normal, :Normal, MSK:Normal, NEURO:Normal Objective vital signs Vital Sign Date Time Temp Pulse Resp B/P (MAP) Pulse Ox O2 Delivery O2 Flow Rate FiO2 09/26/24 09:01 85 18 134/58 09/26/24 09:00 97.9 94 97.9 09/26/24 08:38 1.0 24 09/26/24 05:55 Nasal Cannula Total Intake and Output 09/25/24 09/25/24 09/26/24 15:00 23:00 07:00 Intake Total 500 ml 600 ml 100 ml Balance 500 ml 600 ml 100 ml medications Current Medications Medications Dose Ordered Sig/Deisy Route Start Time Stop Time Status Last Admin Dose Admin Cefazolin Sodium/ Dextrose 50 ml @ 50 mls/hr Q8H IV 09/20/24 13:00 09/26/24 05:27 50 MLS/HR Metronidazole 100 ml @ 100 mls/hr Q8HR IV 09/20/24 14:00 09/26/24 06:43 100 MLS/HR Pantoprazole Sodium 40 mg DAILY IV 09/21/24 10:00 09/24/24 09:09 40 MG Ondansetron HCl 4 mg Q4HPRN PRN IV 09/20/24 10:15 Nitroglycerin 0.4 mg Q5MINP PRN SL 09/20/24 10:45 Albuterol 2.5 mg Q6HWA NEB 09/20/24 18:00 09/26/24 05:55 2.5 MG Ipratropium [place] 0.5 mg Q6HWA NEB 09/20/24 18:00 09/26/24 05:55 0.5 MG Nicotine 1 patch DAILY TD 09/21/24 10:00 09/26/24 10:13 1 PATCH Lorazepam 0.5 mg Q6HP PRN IV 09/20/24 14:30 Diagnostic Test (Pha) 1 strip Q6HR 09/20/24 18:00 09/26/24 05:35 1 STRIP Insulin Human Regular FOLLOW SLIDING SCALE Q6HR SC 09/20/24 18:00 09/26/24 00:55 2 UNITS Dextrose 50 ml UD IV 09/20/24 15:00 Amino Acids 0 ml @ 0 mls/hr PER PHARMACY IV 09/21/24 13:15 Sodium Chloride 10 ml QSHIFT@10,22 IV 09/21/24 22:00 09/25/24 23:01 10 ML Hydromorphone HCl 1 mg Q4HPRN PRN IV 09/22/24 01:00 09/26/24 06:37 1 MG Hydromorphone HCl 0.5 mg Q4HPRN PRN IV 09/22/24 01:00 09/26/24 09:01 0.5 MG Fat Emulsion Intravenous 200 ml/Sodium Chloride 20 meq/ Sodium Phosphate 20 meq/Potassium Chloride 20 meq/ Magnesium Sulfate 16 meq/ Multivitamins 10 ml/Chromium/ Copper/Manganese/ Zinc 1 ml/Amino Acids/Dextrose 1,735 ml @ 72 mls/hr Q24H6M IV 09/25/24 22:00 09/26/24 21:59 09/25/24 22:27 72 MLS/HR Sodium Chloride 1,000 ml @ 60 mls/hr [id number] IV 09/25/24 11:30 09/26/24 03:39 60 MLS/HR Examination: GENERAL:Normal, HEENT:Normal, NECK:Normal, LUNGS:Normal, CVS:Normal, ABDOMEN:Normal, ABDOMEN:Abnormal (MELIAS DRAIN), MSK:Normal, SKIN:Normal, NEURO:Normal, :Normal laboratory and microbiology Laboratory Tests 09/26/24 05:48 Test 09/26/24 05:48 Range/Units Serum Glucose 67 L 74-106 mg/dL Problem List/Assessment/Plan Problem List/Assessment/Plan * COPD for which she will be placed on bronchodilators. * Tobacco abuse for which she has been advised to quit. She will be placed on nicotine patch. Time spent 11 minutes. * Obesity. * Status post sigmoid colon surgery for colon cancer. She will be placed on IV fluids along with pain medications, tpn. had bowel activity Plan discussed with: Patient My Orders My Orders Orders - MARISA PLASENCIA MD Procedure Category Date Status Time Sodium Chloride 0.9% PHA 09/25/24 In Process 11:30 Dietary Evaluation Review Comments: 1) Advance TPN to meet at least 75% estimated needs 2) Advance to low fat diet as medically feasible 3) Continue current plan of care Expected Outcomes/Goals: To meet >75% estimated needs Fu 2-3 days Date of Service: September 26, 2024 Billing Provider: MARISA PLASENCIA MD Common Visit Codes: [id number] INP/OBS CARE(HIGH) MARISA PLASENCIA MD September 26, 2024 10:55
--- NOTE | 2024-09-26 13:11 | DVHPN2 ---
Progress Note Date Seen: September 26, 2024 Medical Necessity Reason Pt with a Central, PICC or Fol: Yes The following are medically ne: Cassidy Catheter Reason for cassidy catheter: Strict I&O Objective vital signs Vital Sign Date Time Temp Pulse Resp B/P (MAP) Pulse Ox O2 Delivery O2 Flow Rate FiO2 09/26/24 12:35 98.7 58 18 116/74 (88) 96 98.7 09/26/24 11:26 Nasal Cannula* 1 24 Total Intake and Output 09/25/24 09/25/24 09/26/24 15:00 23:00 07:00 Intake Total 500 ml 600 ml 100 ml Balance 500 ml 600 ml 100 ml medications Current Medications Medications Dose Ordered Sig/Deisy Route Start Time Stop Time Status Last Admin Dose Admin Cefazolin Sodium/ Dextrose 50 ml @ 50 mls/hr Q8H IV 09/20/24 13:00 09/26/24 05:27 50 MLS/HR Metronidazole 100 ml @ 100 mls/hr Q8HR IV 09/20/24 14:00 09/26/24 06:43 100 MLS/HR Pantoprazole Sodium 40 mg DAILY IV 09/21/24 10:00 09/24/24 09:09 40 MG Ondansetron HCl 4 mg Q4HPRN PRN IV 09/20/24 10:15 Nitroglycerin 0.4 mg Q5MINP PRN SL 09/20/24 10:45 Albuterol 2.5 mg Q6HWA NEB 09/20/24 18:00 09/26/24 11:26 2.5 MG Ipratropium [place] 0.5 mg Q6HWA NEB 09/20/24 18:00 09/26/24 11:26 0.5 MG Nicotine 1 patch DAILY TD 09/21/24 10:00 09/26/24 10:13 1 PATCH Lorazepam 0.5 mg Q6HP PRN IV 09/20/24 14:30 Diagnostic Test (Pha) 1 strip Q6HR 09/20/24 18:00 09/26/24 05:35 1 STRIP Insulin Human Regular FOLLOW SLIDING SCALE Q6HR SC 09/20/24 18:00 09/26/24 00:55 2 UNITS Dextrose 50 ml UD IV 09/20/24 15:00 Amino Acids 0 ml @ 0 mls/hr PER PHARMACY IV 09/21/24 13:15 Sodium Chloride 10 ml QSHIFT@10,22 IV 09/21/24 22:00 09/25/24 23:01 10 ML Hydromorphone HCl 1 mg Q4HPRN PRN IV 09/22/24 01:00 09/26/24 10:25 1 MG Hydromorphone HCl 0.5 mg Q4HPRN PRN IV 09/22/24 01:00 09/26/24 09:01 0.5 MG Fat Emulsion Intravenous 200 ml/Sodium Chloride 20 meq/ Sodium Phosphate 20 meq/Potassium Chloride 20 meq/ Magnesium Sulfate 16 meq/ Multivitamins 10 ml/Chromium/ Copper/Manganese/ Zinc 1 ml/Amino Acids/Dextrose 1,735 ml @ 72 mls/hr Q24H6M IV 09/25/24 22:00 09/26/24 21:59 09/25/24 22:27 72 MLS/HR Sodium Chloride 1,000 ml @ 60 mls/hr [id number] IV 09/25/24 11:30 09/26/24 03:39 60 MLS/HR Fat Emulsion Intravenous 200 ml/Sodium Chloride 20 meq/ Sodium Phosphate 20 meq/Potassium Acetate 20 meq/ Potassium Phosphate 22 meq/ Magnesium Sulfate 14 meq/ Multivitamins 10 ml/Chromium/ Copper/Manganese/ Zinc 1 ml/Amino Acids/Dextrose 1,789.5 ml @ 74 mls/hr [id number] IV 09/26/24 22:00 09/27/24 21:59 laboratory and microbiology Laboratory Tests 09/26/24 05:48 Test 09/26/24 05:48 Range/Units Serum Glucose 67 L 74-106 mg/dL Problem List/Assessment/Plan Problem List/Assessment/Plan 09/21/24 poor pain control, wound zack and well approximated, expalined Operative findings, needs to remain NPO with NGT till has a BOWEL MOVEMENT , will keep at bed rest the next 72 hours. in order to minimize tension of rectal anastomosis 09/23/24 feels well, abdomen non distended, appropriately tender, wound clean and well approximated, drainage per MELISA drain serous. Continue as is, will allow Toradol to help woith pain control 09/25/24 minimal flatus, no bm, abdomen non distended, will allow ambulation 09/26/24 passed flatus and had a bowel movements, will dc NGT and allow clear liquids, labs OK, abdomen non distended, appropriately tender, wound clean and well approximated Plan discussed with: Patient Dietary Evaluation Review Comments: 1) Advance TPN to meet at least 75% estimated needs 2) Advance to low fat diet as medically feasible 3) Continue current plan of care Expected Outcomes/Goals: To meet >75% estimated needs Fu 2-3 days ALFA BETHEA MD September 26, 2024 13:11
--- NOTE | 2024-09-26 22:42 | DVHPN2 ---
Progress Note - Dictate Date Seen: September 26, 2024 Medical Necessity Reason Pt with a Central, PICC or Fol: Yes The following are medically ne: Cassidy Catheter Reason for cassidy catheter: Strict I&O Subjective Patient seen at bedside resting comfortably;[facility] at [facility] Patient had a liquid bowel movement today and pass some air NG tube was discontinued and patient has been started on clear liquid diet Patient ambulated today with a walker vital signs Vital Sign Date Time Temp Pulse Resp B/P (MAP) Pulse Ox O2 Delivery O2 Flow Rate FiO2 09/26/24 21:00 98.7 104 18 129/60 (83) 94 98.7 09/26/24 20:00 Room Air* 0 21 Total Intake and Output 09/25/24 09/25/24 09/26/24 15:00 23:00 07:00 Intake Total 500 ml 600 ml 100 ml Balance 500 ml 600 ml 100 ml medications Current Medications Medications Dose Ordered Sig/Deisy Route Start Time Stop Time Status Last Admin Dose Admin Cefazolin Sodium/ Dextrose 50 ml @ 50 mls/hr Q8H IV 09/20/24 13:00 09/26/24 20:16 50 MLS/HR Metronidazole 100 ml @ 100 mls/hr Q8HR IV 09/20/24 14:00 09/26/24 21:25 100 MLS/HR Pantoprazole Sodium 40 mg DAILY IV 09/21/24 10:00 09/24/24 09:09 40 MG Ondansetron HCl 4 mg Q4HPRN PRN IV 09/20/24 10:15 Nitroglycerin 0.4 mg Q5MINP PRN SL 09/20/24 10:45 Albuterol 2.5 mg Q6HWA NEB 09/20/24 18:00 09/26/24 18:50 2.5 MG Ipratropium [place] 0.5 mg Q6HWA NEB 09/20/24 18:00 09/26/24 18:51 0.5 MG Nicotine 1 patch DAILY TD 09/21/24 10:00 09/26/24 10:13 1 PATCH Lorazepam 0.5 mg Q6HP PRN IV 09/20/24 14:30 Diagnostic Test (Pha) 1 strip Q6HR 09/20/24 18:00 09/26/24 18:21 1 STRIP Insulin Human Regular FOLLOW SLIDING SCALE Q6HR SC 09/20/24 18:00 09/26/24 18:21 2 UNITS Dextrose 50 ml UD IV 09/20/24 15:00 Amino Acids 0 ml @ 0 mls/hr PER PHARMACY IV 09/21/24 13:15 Sodium Chloride 10 ml QSHIFT@10,22 IV 09/21/24 22:00 09/26/24 13:20 10 ML Hydromorphone HCl 1 mg Q4HPRN PRN IV 09/22/24 01:00 09/26/24 20:13 1 MG Hydromorphone HCl 0.5 mg Q4HPRN PRN IV 09/22/24 01:00 09/26/24 18:23 0.5 MG Sodium Chloride 1,000 ml @ 60 mls/hr [id number] IV 09/25/24 11:30 09/26/24 03:39 60 MLS/HR Fat Emulsion Intravenous 200 ml/Sodium Chloride 20 meq/ Sodium Phosphate 20 meq/Potassium Acetate 20 meq/ Potassium Phosphate 22 meq/ Magnesium Sulfate 14 meq/ Multivitamins 10 ml/Chromium/ Copper/Manganese/ Zinc 1 ml/Amino Acids/Dextrose 1,789.5 ml @ 74 mls/hr [id number] IV 09/26/24 22:00 09/27/24 21:59 objective General: Normal, Well developed, Obese Head/Eyes: Normal ENT: Normal Neck: Normal, Supple Lungs: Normal, Normal inspection Cardiovascular: Normal, Regular rate and rhythm Abdominal: Normal, Soft, No distension;Some bruising near her surgical site Extremities: Normal, No clubbing laboratory and microbiology Laboratory Tests 09/26/24 05:48 Test 09/26/24 05:48 Range/Units Serum Glucose 67 L 74-106 mg/dL Problems(with codes): (1) Adenocarcinoma of sigmoid colon (2) Status post laparotomy (3) S/P colon resection Prognosis Plan Await final pathology results, results were still pending this morning Decision regarding further management and adjuvant chemotherapy will be decided pending pathology results Ambulate patient pain control physical therapy and advance diet as per surgical consult only Dietary Evaluation Review Comments: 1) Advance TPN to meet at least 75% estimated needs 2) Advance to low fat diet as medically feasible 3) Continue current plan of care Expected Outcomes/Goals: To meet >75% estimated needs Fu 2-3 days Plan discussed with: Patient CHAZ LAU MD September 26, 2024 22:42
[2024-09-26] MEDS: TPN PER PHARMACY IV NR (23:00)
[2024-09-27] VITALS (16 sets, daily range): BP systolic 110–135; BP diastolic 32–68; PULSE 67–105; RESP 16–20; TEMP 98.3–98.9; O2SAT 93–100
[2024-09-27 08:12] LABS: Alanine Aminotransferase 21 U/L (7-40); Alkaline Phosphatase 64 U/L (46-116); Anion Gap 8 (5-15); BUN/Creatinine Ratio 21.7 (10.0-20.0); Blood Urea Nitrogen 10 mg/dL (9-23); Carbon Dioxide 26 mmol/L (20-31); Chloride 104 mmol/L (98-107); Glucose 82 mg/dL (74-106); Potassium 3.7 mmol/L (3.5-5.1); Sodium 138 mmol/L (136-145); Triglycerides 70 mg/dL (< 150)
[2024-09-27 08:13] LABS: Magnesium 2.2 mg/dL (1.6-2.6); Total Protein 5.9 g/dL (5.7-8.2)
[2024-09-27 08:14] LABS: Albumin 3.5 g/dL (3.2-4.8); Aspartate Aminotransferase 26 U/L (13-40); Bilirubin, Total 0.4 mg/dL (0.2-1.0); Phosphorus 2.8 mg/dL (2.4-5.1)
--- NOTE | 2024-09-27 10:03 | DVHPN2 ---
Subjective Date Seen: September 27, 2024 Post op day Post op day: 8 Patient reports: No new complaints Nursing reports: No new complaints General: Normal HNT: Normal Cardiovascular: Normal Respiratory: Normal Gastrointestinal: Normal Genitourinary: Normal Musculoskeletal: Normal Neurological: Normal Objective Vitals Vital Sign Date Time Temp Pulse Resp B/P (MAP) Pulse Ox O2 Delivery O2 Flow Rate FiO2 09/27/24 09:00 98.6 94 20 117/51 (73) 94 98.6 09/27/24 06:28 Room Air 0.0 09/27/24 06:28 21 Total Intake and Output 09/26/24 09/26/24 09/27/24 15:00 23:00 07:00 Intake Total 150 ml Balance 150 ml Medications Current Medications Medications Dose Ordered Sig/Deisy Route Start Time Stop Time Status Last Admin Dose Admin Cefazolin Sodium/ Dextrose 50 ml @ 50 mls/hr Q8H IV 09/20/24 13:00 09/27/24 05:19 50 MLS/HR Metronidazole 100 ml @ 100 mls/hr Q8HR IV 09/20/24 14:00 09/27/24 07:36 100 MLS/HR Pantoprazole Sodium 40 mg DAILY IV 09/21/24 10:00 09/24/24 09:09 40 MG Ondansetron HCl 4 mg Q4HPRN PRN IV 09/20/24 10:15 Nitroglycerin 0.4 mg Q5MINP PRN SL 09/20/24 10:45 Albuterol 2.5 mg Q6HWA NEB 09/20/24 18:00 09/27/24 06:28 2.5 MG Ipratropium [place] 0.5 mg Q6HWA NEB 09/20/24 18:00 09/27/24 06:28 0.5 MG Nicotine 1 patch DAILY TD 09/21/24 10:00 09/26/24 10:13 1 PATCH Lorazepam 0.5 mg Q6HP PRN IV 09/20/24 14:30 Diagnostic Test (Pha) 1 strip Q6HR 09/20/24 18:00 09/27/24 05:11 1 STRIP Insulin Human Regular FOLLOW SLIDING SCALE Q6HR SC 09/20/24 18:00 09/26/24 18:21 2 UNITS Dextrose 50 ml UD IV 09/20/24 15:00 Amino Acids 0 ml @ 0 mls/hr PER PHARMACY IV 09/21/24 13:15 Sodium Chloride 10 ml QSHIFT@10,22 IV 09/21/24 22:00 09/26/24 22:55 10 ML Hydromorphone HCl 1 mg Q4HPRN PRN IV 09/22/24 01:00 09/27/24 05:15 1 MG Hydromorphone HCl 0.5 mg Q4HPRN PRN IV 09/22/24 01:00 09/27/24 08:43 0.5 MG Sodium Chloride 1,000 ml @ 60 mls/hr [id number] IV 09/25/24 11:30 09/27/24 01:09 60 MLS/HR Fat Emulsion Intravenous 200 ml/Sodium Chloride 20 meq/ Sodium Phosphate 20 meq/Potassium Acetate 20 meq/ Potassium Phosphate 22 meq/ Magnesium Sulfate 14 meq/ Multivitamins 10 ml/Chromium/ Copper/Manganese/ Zinc 1 ml/Amino Acids/Dextrose 1,789.5 ml @ 74 mls/hr [id number] IV 09/26/24 22:00 09/27/24 21:59 09/26/24 23:00 74 MLS/HR General: Normal, Well developed, Obese Head/Eyes: Normal ENT: Normal Neck: Normal, Supple Lungs: Normal, Normal inspection Cardiovascular: Normal, Regular rate and rhythm Abdominal: Normal, Soft, No distension Extremities: Normal, No clubbing Labs and Microbiology Laboratory Tests 09/27/24 06:28 09/26/24 05:48 Test 09/27/24 06:28 Range/Units Serum Glucose 82 74-106 mg/dL Ass/Plan Labs and/or images reviewed: Labs reviewed by me Problem List 09/21/24 poor pain control, wound zack and well approximated, expalined Operative findings, needs to remain NPO with NGT till has a BOWEL MOVEMENT , will keep at bed rest the next 72 hours. in order to minimize tension of rectal anastomosis 09/23/24 feels well, abdomen non distended, appropriately tender, wound clean and well approximated, drainage per MELISA drain serous. Continue as is, will allow Toradol to help woith pain control 09/25/24 minimal flatus, no bm, abdomen non distended, will allow ambulation 09/26/24 passed flatus and had a bowel movements, will dc NGT and allow clear liquids, labs OK, abdomen non distended, appropriately tender, wound clean and well approximated Assessment/Plan 09/22/24 s/p colon resection POD#3 abdomen soft, non distended, appropriately tender wound clean dry and intact MELISA drain serous sanguinous 10cc denies nausea or vomiting Plan: continue with current treatment patient to use incentive spirometer every hour 09/24/ s/p colon resection POD#5 abdomen soft, non distended, appropriately tender wound clean dry and intact MELISA drain minimal serous sanguinous denies nausea or vomiting patient unsure if she passed any gas Plan: continue with current treatment patient to use incentive spirometer every hour possible ambulation on Wednesday09/27/24 s/p colon resection POD#8 abdomen soft, non distended, appropriately tender wound clean dry and intact MELISA drain minimal serous sanguinous denies nausea or vomiting passing gas, BM Plan: continue with current treatment patient to use incentive spirometer every hour patient to ambulate ok to drink Ensure CLEAR Prognosis: Good Plan discussed with Dr. White, patient Visit Coding Surgery Date of Service if different f: September 27, 2024 Billing Provider: ALFA WHITE MD Surgery Visit Codes: [id number] INP/OBS CARE(HIGH) TRAV MINER NP September 27, 2024 10:03
--- NOTE | 2024-09-27 10:40 | DVHPN2 ---
Progress Note Date Seen: September 27, 2024 Medical Necessity Reason Pt with a Central, PICC or Fol: No Subjective Patient reports: No new complaints Review of Systems: HEENT:Normal, CVS:Normal, RESPIRATORY:Normal, GI:Normal, :Normal, MSK:Normal, NEURO:Normal Objective vital signs Vital Sign Date Time Temp Pulse Resp B/P (MAP) Pulse Ox O2 Delivery O2 Flow Rate FiO2 09/27/24 09:00 98.6 94 20 117/51 (73) 94 98.6 09/27/24 06:28 Room Air 0.0 09/27/24 06:28 21 Total Intake and Output 09/26/24 09/26/24 09/27/24 15:00 23:00 07:00 Intake Total 150 ml Balance 150 ml medications Current Medications Medications Dose Ordered Sig/Deisy Route Start Time Stop Time Status Last Admin Dose Admin Cefazolin Sodium/ Dextrose 50 ml @ 50 mls/hr Q8H IV 09/20/24 13:00 09/27/24 05:19 50 MLS/HR Metronidazole 100 ml @ 100 mls/hr Q8HR IV 09/20/24 14:00 09/27/24 07:36 100 MLS/HR Pantoprazole Sodium 40 mg DAILY IV 09/21/24 10:00 09/24/24 09:09 40 MG Ondansetron HCl 4 mg Q4HPRN PRN IV 09/20/24 10:15 Nitroglycerin 0.4 mg Q5MINP PRN SL 09/20/24 10:45 Albuterol 2.5 mg Q6HWA NEB 09/20/24 18:00 09/27/24 06:28 2.5 MG Ipratropium [place] 0.5 mg Q6HWA NEB 09/20/24 18:00 09/27/24 06:28 0.5 MG Nicotine 1 patch DAILY TD 09/21/24 10:00 09/26/24 10:13 1 PATCH Lorazepam 0.5 mg Q6HP PRN IV 09/20/24 14:30 Diagnostic Test (Pha) 1 strip Q6HR 09/20/24 18:00 09/27/24 05:11 1 STRIP Insulin Human Regular FOLLOW SLIDING SCALE Q6HR SC 09/20/24 18:00 09/26/24 18:21 2 UNITS Dextrose 50 ml UD IV 09/20/24 15:00 Amino Acids 0 ml @ 0 mls/hr PER PHARMACY IV 09/21/24 13:15 Sodium Chloride 10 ml QSHIFT@10,22 IV 09/21/24 22:00 09/26/24 22:55 10 ML Hydromorphone HCl 1 mg Q4HPRN PRN IV 09/22/24 01:00 09/27/24 05:15 1 MG Hydromorphone HCl 0.5 mg Q4HPRN PRN IV 09/22/24 01:00 09/27/24 08:43 0.5 MG Sodium Chloride 1,000 ml @ 60 mls/hr [id number] IV 09/25/24 11:30 09/27/24 01:09 60 MLS/HR Fat Emulsion Intravenous 200 ml/Sodium Chloride 20 meq/ Sodium Phosphate 20 meq/Potassium Acetate 20 meq/ Potassium Phosphate 22 meq/ Magnesium Sulfate 14 meq/ Multivitamins 10 ml/Chromium/ Copper/Manganese/ Zinc 1 ml/Amino Acids/Dextrose 1,789.5 ml @ 74 mls/hr [id number] IV 09/26/24 22:00 09/27/24 21:59 09/26/24 23:00 74 MLS/HR Fat Emulsion Intravenous 200 ml/Sodium Chloride 20 meq/ Sodium Phosphate 30 meq/Potassium Acetate 30 meq/ Potassium Phosphate 22 meq/ Magnesium Sulfate 12 meq/ Multivitamins 10 ml/Chromium/ Copper/Manganese/ Zinc 1 ml/Amino Acids/Dextrose 1,746.5 ml @ 72 mls/hr [id number] IV 09/27/24 22:00 09/28/24 21:59 Examination: GENERAL:Normal, HEENT:Normal, NECK:Normal, LUNGS:Normal, CVS:Normal, ABDOMEN:Normal, ABDOMEN:Abnormal (chandni drain), MSK:Normal, SKIN:Normal, NEURO:Normal, :Normal laboratory and microbiology Laboratory Tests 09/27/24 06:28 09/26/24 05:48 Test 09/27/24 06:28 Range/Units Serum Glucose 82 74-106 mg/dL Problem List/Assessment/Plan Problem List/Assessment/Plan * COPD for which she will be placed on bronchodilators. * Tobacco abuse for which she has been advised to quit. She will be placed on nicotine patch. Time spent 11 minutes. * Obesity. * Status post sigmoid colon surgery for colon cancer. She will be placed on IV fluids along with pain medications, tpn. had bowel activity, clear liquid diet Plan discussed with: Patient My Orders My Orders Orders - MARISA PLASENCIA MD Procedure Category Date Status Time Amino Acid PHA 09/26/24 In Process Infusion... W/Fat 22:00 Tpn Per Pharmacy LINDA 09/26/24 In Process 22:00 * Wound Consult CONS 09/26/24 Transmitted Amino Acid PHA 09/27/24 In Process Infusion... W/Fat 22:00 Comprehensive LAB 09/28/24 Verified Metabolic Panel 04:00 Magnesium LAB 09/28/24 Verified 04:00 Phosphorus LAB 09/28/24 Verified 04:00 Tpn Per Pharmacy LINDA 09/27/24 In Process 22:00 Discontinue Tele LINDA 09/27/24 Verified 10:38 Transfer Orders XFER 09/27/24 Verified 10:38 Dietary Evaluation Review Comments: 1) Advance TPN to meet at least 75% estimated needs 2) Advance to low fat diet as medically feasible 3) Continue current plan of care Expected Outcomes/Goals: To meet >75% estimated needs Fu 2-3 days Date of Service: September 27, 2024 Billing Provider: MARISA PLASENCIA MD Common Visit Codes: [id number] INP/OBS CARE(HIGH) MARISA PLASENCIA MD September 27, 2024 10:40
[2024-09-27] MEDS: TPN PER PHARMACY IV NR (23:15)
[2024-09-28] VITALS (13 sets, daily range): BP systolic 118–131; BP diastolic 57–72; PULSE 89–108; RESP 16–20; TEMP 97.5–98.8; O2SAT 95–100
[2024-09-28 07:20] LABS: Alanine Aminotransferase 25 U/L (7-40); Albumin 3.4 g/dL (3.2-4.8); Alkaline Phosphatase 64 U/L (46-116); Anion Gap 7 (5-15); Aspartate Aminotransferase 30 U/L (13-40); BUN/Creatinine Ratio 16.7 (10.0-20.0); Calcium 8.9 mg/dL (8.7-10.4); Carbon Dioxide 26 mmol/L (20-31); Chloride 105 mmol/L (98-107); Glucose 104 mg/dL (74-106); Magnesium 2.2 mg/dL (1.6-2.6); Potassium 3.7 mmol/L (3.5-5.1); Sodium 138 mmol/L (136-145); Total Protein 5.7 g/dL (5.7-8.2)
[2024-09-28 07:21] LABS: Phosphorus 3.2 mg/dL (2.4-5.1)
[2024-09-28 07:22] LABS: Bilirubin, Total 0.3 mg/dL (0.2-1.0); Blood Urea Nitrogen 8 mg/dL (9-23)
--- NOTE | 2024-09-28 10:34 | DVHPN2 ---
Progress Note Date Seen: September 28, 2024 Medical Necessity Reason Pt with a Central, PICC or Fol: No Subjective Patient reports: No new complaints Review of Systems: HEENT:Normal, CVS:Normal, RESPIRATORY:Normal, GI:Normal, :Normal, MSK:Normal, NEURO:Normal Objective vital signs Vital Sign Date Time Temp Pulse Resp B/P (MAP) Pulse Ox O2 Delivery O2 Flow Rate FiO2 09/28/24 10:29 99 Room Air* 0 21 09/28/24 09:11 95 18 127/58 09/28/24 09:00 98.2 98.2 Total Intake and Output 09/27/24 09/27/24 09/28/24 15:00 23:00 07:00 Intake Total 50 ml 1350 ml 875 ml Output Total 30 ml 1050 ml Balance 50 ml 1320 ml -175 ml medications Current Medications Medications Dose Ordered Sig/Deisy Route Start Time Stop Time Status Last Admin Dose Admin Cefazolin Sodium/ Dextrose 50 ml @ 50 mls/hr Q8H IV 09/20/24 13:00 09/28/24 04:32 50 MLS/HR Metronidazole 100 ml @ 100 mls/hr Q8HR IV 09/20/24 14:00 09/28/24 06:32 100 MLS/HR Pantoprazole Sodium 40 mg DAILY IV 09/21/24 10:00 09/28/24 09:08 40 MG Ondansetron HCl 4 mg Q4HPRN PRN IV 09/20/24 10:15 Nitroglycerin 0.4 mg Q5MINP PRN SL 09/20/24 10:45 Albuterol 2.5 mg Q6HWA NEB 09/20/24 18:00 09/28/24 06:56 2.5 MG Ipratropium [place] 0.5 mg Q6HWA NEB 09/20/24 18:00 09/28/24 06:55 0.5 MG Nicotine 1 patch DAILY TD 09/21/24 10:00 09/28/24 09:10 1 PATCH Lorazepam 0.5 mg Q6HP PRN IV 09/20/24 14:30 Diagnostic Test (Pha) 1 strip Q6HR 09/20/24 18:00 09/28/24 06:58 1 STRIP Insulin Human Regular FOLLOW SLIDING SCALE Q6HR SC 09/20/24 18:00 09/26/24 18:21 2 UNITS Dextrose 50 ml UD IV 09/20/24 15:00 Amino Acids 0 ml @ 0 mls/hr PER PHARMACY IV 09/21/24 13:15 Sodium Chloride 10 ml QSHIFT@10,22 IV 09/21/24 22:00 09/28/24 09:08 10 ML Hydromorphone HCl 1 mg Q4HPRN PRN IV 09/22/24 01:00 09/28/24 09:11 1 MG Hydromorphone HCl 0.5 mg Q4HPRN PRN IV 09/22/24 01:00 09/28/24 06:46 0.5 MG Sodium Chloride 1,000 ml @ 60 mls/hr [id number] IV 09/25/24 11:30 09/27/24 23:21 60 MLS/HR Fat Emulsion Intravenous 200 ml/Sodium Chloride 20 meq/ Sodium Phosphate 30 meq/Potassium Acetate 30 meq/ Potassium Phosphate 22 meq/ Magnesium Sulfate 12 meq/ Multivitamins 10 ml/Chromium/ Copper/Manganese/ Zinc 1 ml/Amino Acids/Dextrose 1,746.5 ml @ 72 mls/hr [id number] IV 09/27/24 22:00 09/28/24 21:59 09/27/24 23:15 72 MLS/HR Examination: GENERAL:Normal, HEENT:Normal, NECK:Normal, LUNGS:Normal, CVS:Normal, ABDOMEN:Normal, ABDOMEN:Abnormal (chandni drain), MSK:Normal, SKIN:Normal, NEURO:Normal, :Normal laboratory and microbiology Laboratory Tests 09/28/24 05:55 09/26/24 05:48 Test 09/28/24 05:55 Range/Units Serum Glucose 104 74-106 mg/dL Problem List/Assessment/Plan Problem List/Assessment/Plan * COPD for which she will be placed on bronchodilators. * Tobacco abuse for which she has been advised to quit. She will be placed on nicotine patch. Time spent 11 minutes. * Obesity. * Status post sigmoid colon surgery for colon cancer. She will be placed on IV fluids along with pain medications, tpn. had bowel activity, full liquid diet Plan discussed with: Patient My Orders My Orders Orders - MARISA PLASENCIA MD Procedure Category Date Status Time Discontinue Tele [facility] 09/27/24 In Process 10:38 Transfer Orders XFER 09/27/24 Transmitted 10:38 Full Liq Diet DIET 09/28/24 Verified Lunch Urinalysis LAB 09/28/24 Uncollected 10:33 Complete Blood Count LAB 09/29/24 Verified 06:00 Dietary Evaluation Review Comments: 1) Advance TPN to meet at least 75% estimated needs 2) Advance to low fat diet as medically feasible 3) Continue current plan of care Expected Outcomes/Goals: To meet >75% estimated needs Fu 2-3 days Date of Service: September 28, 2024 Billing Provider: MARISA PLASENCIA MD Common Visit Codes: [id number] INP/OBS CARE(HIGH) MARISA PLASENCIA MD September 28, 2024 10:34
--- NOTE | 2024-09-28 12:30 | DVHPN2 ---
Progress Note Date Seen: September 28, 2024 Medical Necessity Reason Pt with a Central, PICC or Fol: No Objective vital signs Vital Sign Date Time Temp Pulse Resp B/P (MAP) Pulse Ox O2 Delivery O2 Flow Rate FiO2 09/28/24 12:00 98 19 115/57 09/28/24 10:29 99 Room Air* 0 21 09/28/24 09:00 98.2 98.2 Total Intake and Output 09/27/24 09/27/24 09/28/24 15:00 23:00 07:00 Intake Total 50 ml 1350 ml 875 ml Output Total 30 ml 1050 ml Balance 50 ml 1320 ml -175 ml medications Current Medications Medications Dose Ordered Sig/Deisy Route Start Time Stop Time Status Last Admin Dose Admin Cefazolin Sodium/ Dextrose 50 ml @ 50 mls/hr Q8H IV 09/20/24 13:00 09/28/24 04:32 50 MLS/HR Metronidazole 100 ml @ 100 mls/hr Q8HR IV 09/20/24 14:00 09/28/24 06:32 100 MLS/HR Pantoprazole Sodium 40 mg DAILY IV 09/21/24 10:00 09/28/24 09:08 40 MG Ondansetron HCl 4 mg Q4HPRN PRN IV 09/20/24 10:15 Nitroglycerin 0.4 mg Q5MINP PRN SL 09/20/24 10:45 Albuterol 2.5 mg Q6HWA NEB 09/20/24 18:00 09/28/24 06:56 2.5 MG Ipratropium [place] 0.5 mg Q6HWA NEB 09/20/24 18:00 09/28/24 06:55 0.5 MG Nicotine 1 patch DAILY TD 09/21/24 10:00 09/28/24 09:10 1 PATCH Lorazepam 0.5 mg Q6HP PRN IV 09/20/24 14:30 Diagnostic Test (Pha) 1 strip Q6HR 09/20/24 18:00 09/28/24 06:58 1 STRIP Insulin Human Regular FOLLOW SLIDING SCALE Q6HR SC 09/20/24 18:00 09/26/24 18:21 2 UNITS Dextrose 50 ml UD IV 09/20/24 15:00 Amino Acids 0 ml @ 0 mls/hr PER PHARMACY IV 09/21/24 13:15 Sodium Chloride 10 ml QSHIFT@10,22 IV 09/21/24 22:00 09/28/24 09:08 10 ML Hydromorphone HCl 1 mg Q4HPRN PRN IV 09/22/24 01:00 09/28/24 09:11 1 MG Hydromorphone HCl 0.5 mg Q4HPRN PRN IV 09/22/24 01:00 09/28/24 11:56 0.5 MG Sodium Chloride 1,000 ml @ 60 mls/hr [id number] IV 09/25/24 11:30 09/27/24 23:21 60 MLS/HR Fat Emulsion Intravenous 200 ml/Sodium Chloride 20 meq/ Sodium Phosphate 30 meq/Potassium Acetate 30 meq/ Potassium Phosphate 22 meq/ Magnesium Sulfate 12 meq/ Multivitamins 10 ml/Chromium/ Copper/Manganese/ Zinc 1 ml/Amino Acids/Dextrose 1,746.5 ml @ 72 mls/hr [id number] IV 09/27/24 22:00 09/28/24 21:59 09/27/24 23:15 72 MLS/HR laboratory and microbiology Laboratory Tests 09/28/24 05:55 09/26/24 05:48 Test 09/28/24 05:55 Range/Units Serum Glucose 104 74-106 mg/dL Problem List/Assessment/Plan Problem List/Assessment/Plan 09/21/24 poor pain control, wound zack and well approximated, expalined Operative findings, needs to remain NPO with NGT till has a BOWEL MOVEMENT , will keep at bed rest the next 72 hours. in order to minimize tension of rectal anastomosis 09/23/24 feels well, abdomen non distended, appropriately tender, wound clean and well approximated, drainage per MELISA drain serous. Continue as is, will allow Toradol to help woith pain control 09/25/24 minimal flatus, no bm, abdomen non distended, will allow ambulation 09/26/24 passed flatus and had a bowel movements, will dc NGT and allow clear liquids, labs OK, abdomen non distended, appropriately tender, wound clean and well approximated 09/28/24 bowel function improving, less pain, no nausea, abdomen still somewhat tender, Will advance diet and tomorrow will DC her MELISA drain. Plan discussed with: Patient Dietary Evaluation Review Comments: 1) Advance TPN to meet at least 75% estimated needs 2) Advance to low fat diet as medically feasible 3) Continue current plan of care Expected Outcomes/Goals: To meet >75% estimated needs Fu 2-3 days ALFA BETHEA MD September 28, 2024 12:30
[2024-09-28 13:21] LABS: Urine Bacteria None Seen /hpf (None Seen); Urine Blood Negative /uL (Negative); Urine Clarity Clear (Clear); Urine Color Light-Yellow (Yellow); Urine Protein, UAD Negative (Negative); Urine Specific Gravity 1.015 (1.001-1.035); Urine Squamous Epithelial Cell MOD /hpf (<5); Urine Urobilinogen Normal (Negative); Urine WBC < 1 /HPF (0-5)
[2024-09-28] MEDS: TPN PER PHARMACY IV NR (22:00)
[2024-09-29] VITALS (15 sets, daily range): BP systolic 112–138; BP diastolic 57–87; PULSE 91–107; RESP 15–20; TEMP 97.9–98.8; O2SAT 92–100
[2024-09-29 09:11] LABS: Basophils # (auto) 0.1 10 ^3/uL (0-0.2); Basophils % (auto) 0.8 % (0.0-2.0); Eosinophils # (auto) 0.2 10 ^3/uL (0-0.8); Hematocrit 33.7 % (36.0-46.0); Hemoglobin 11.3 g/dL (12.2-16.2); Lymphocytes # (auto) 1.2 10 ^3/uL (0.4-5.4); Lymphocytes % (auto) 13.8 % (10.0-50.0); Mean Corpuscular Hemoglobin 30.8 pg (28.0-32.0); Mean Corpuscular Hgb Conc. 33.4 g/dL (32.0-36.0); Mean Corpuscular Volume 92.2 fL (80.0-100.0); Monocytes # (auto) 0.7 10 ^3/uL (0-1.3); Monocytes % (auto) 8.7 % (0.0-12.0); Neutrophils # (auto) 6.3 10 ^3/uL (1.6-8.6); Neutrophils % (auto) 74.7 % (37.0-80.0); Nucleated Red Blood Cells % 0.1 %; Platelet Count (auto) 292 10^3/uL (140-450); Red Blood Cells 3.66 10^6/uL (4.0-5.20); Red Cell Distribution Width 13.7 % (11.8-14.3); White Blood Cell 8.5 10^3/uL (4.4-10.8)
[2024-09-29 09:24] LABS: Potassium 3.8 mmol/L (3.5-5.1)
[2024-09-29 09:25] LABS: Calcium 9.5 mg/dL (8.7-10.4)
[2024-09-29 09:30] LABS: BUN/Creatinine Ratio 13.3 (10.0-20.0)
[2024-09-29 09:31] LABS: Magnesium 1.9 mg/dL (1.6-2.6)
[2024-09-29 09:32] LABS: Albumin 3.6 g/dL (3.2-4.8); Phosphorus 3.2 mg/dL (2.4-5.1)
--- NOTE | 2024-09-29 11:16 | DVHPN2 ---
Progress Note Date Seen: September 29, 2024 Medical Necessity Reason Pt with a Central, PICC or Fol: No Objective vital signs Vital Sign Date Time Temp Pulse Resp B/P (MAP) Pulse Ox O2 Delivery O2 Flow Rate FiO2 09/29/24 10:01 95 18 133/71 09/29/24 09:00 98.8 100 98.8 09/29/24 06:55 Room Air* 0 21 Total Intake and Output 09/28/24 09/28/24 09/29/24 15:00 23:00 07:00 Intake Total 50 ml 100 ml 200 ml Output Total 25 ml Balance 50 ml 75 ml 200 ml medications Current Medications Medications Dose Ordered Sig/Deisy Route Start Time Stop Time Status Last Admin Dose Admin Cefazolin Sodium/ Dextrose 50 ml @ 50 mls/hr Q8H IV 09/20/24 13:00 09/29/24 04:51 50 MLS/HR Metronidazole 100 ml @ 100 mls/hr Q8HR IV 09/20/24 14:00 09/29/24 06:21 100 MLS/HR Pantoprazole Sodium 40 mg DAILY IV 09/21/24 10:00 09/29/24 09:57 40 MG Ondansetron HCl 4 mg Q4HPRN PRN IV 09/20/24 10:15 Nitroglycerin 0.4 mg Q5MINP PRN SL 09/20/24 10:45 Albuterol 2.5 mg Q6HWA [facility] 09/20/24 18:00 09/29/24 06:55 2.5 MG Ipratropium [place] 0.5 mg Q6HWA [facility] 09/20/24 18:00 09/29/24 06:55 0.5 MG Nicotine 1 patch DAILY TD 09/21/24 10:00 09/29/24 10:02 1 PATCH Lorazepam 0.5 mg Q6HP PRN IV 09/20/24 14:30 Sodium Chloride 10 ml QSHIFT@10,22 IV 09/21/24 22:00 09/28/24 23:04 10 ML Hydromorphone HCl 1 mg Q4HPRN PRN IV 09/22/24 01:00 09/29/24 10:01 1 MG Hydromorphone HCl 0.5 mg Q4HPRN PRN IV 09/22/24 01:00 09/29/24 06:38 0.5 MG Sodium Chloride 1,000 ml @ 60 mls/hr [id number] IV 09/25/24 11:30 09/29/24 00:32 60 MLS/HR laboratory and microbiology Laboratory Tests 09/29/24 08:50 Test 09/29/24 08:50 Range/Units Serum Glucose 115 H 74-106 mg/dL Problem List/Assessment/Plan Problem List/Assessment/Plan 09/21/24 poor pain control, wound zack and well approximated, expalined Operative findings, needs to remain NPO with NGT till has a BOWEL MOVEMENT , will keep at bed rest the next 72 hours. in order to minimize tension of rectal anastomosis 09/23/24 feels well, abdomen non distended, appropriately tender, wound clean and well approximated, drainage per MELISA drain serous. Continue as is, will allow Toradol to help woith pain control 09/25/24 minimal flatus, no bm, abdomen non distended, will allow ambulation 09/26/24 passed flatus and had a bowel movements, will dc NGT and allow clear liquids, labs OK, abdomen non distended, appropriately tender, wound clean and well approximated 09/28/24 bowel function improving, less pain, no nausea, abdomen still somewhat tender, Will advance diet and tomorrow will DC her MELISA drain. 09/29/24 SHE FEELS WELL, TOLERATING PO DIET, HAVING BMs AND PASSING FLATUS. SHE IS CLEARED FOR DISCHARGE, DRAIN STILL WITH SECRETION, WILL DC DRAIN IN OFFICE Plan discussed with: Patient, Daughter Dietary Evaluation Review Comments: 1) Advance TPN to meet at least 75% estimated needs 2) Advance to low fat diet as medically feasible 3) Continue current plan of care Expected Outcomes/Goals: To meet >75% estimated needs Fu 2-3 days ALFA BETHEA MD September 29, 2024 11:16
--- NOTE | 2024-09-29 11:19 | DVHPN2 ---
Subjective Patient continues to report having abdominal pain, better controlled. Reports having BM this a.m.. Reviewed: Care Plan, H&P, Labs, Medications, Previous Orders, Radiology Changes from previous H/P or p: No Changes General: Per HPI Objective Vitals Vital Signs Date Time Temp Pulse Resp B/P (MAP) Pulse Ox O2 Delivery O2 Flow Rate FiO2 09/29/24 10:01 95 18 133/71 09/29/24 09:00 98.8 100 98.8 09/29/24 06:55 Room Air* 0 21 Intake/Output Intake and Output 09/29/24 07:00 Intake Total 350 ml Output Total 25 ml Balance 325 ml IV Total 350 ml Drainage Total 25 ml General Appearance: Alert, Oriented X3, Cooperative, No acute distress HEENT: Atraumatic, PERRLA, EOMI, Mucous membr. moist/pink Neck: Supple Lungs: Clear to auscultation, Normal air movement Cardiovascular: Regular rate, Normal S1, Normal S2, No murmurs, Gallops, Rubs Abdomen: Normal bowel sounds, Soft, No tenderness, Other (Abdominal wound well approximated. MELISA drain with scant serosanguineous fluid) Neuro: Cranial nerves 3-12 NL Psych/Mental Status: Mental status NL Medications Current Medications Medications Dose Ordered Sig/Deisy Route Start Time Stop Time Status Last Admin Dose Admin Cefazolin Sodium/ Dextrose 50 ml @ 50 mls/hr Q8H IV 09/20/24 13:00 09/29/24 04:51 50 MLS/HR Metronidazole 100 ml @ 100 mls/hr Q8HR IV 09/20/24 14:00 09/29/24 06:21 100 MLS/HR Pantoprazole Sodium 40 mg DAILY IV 09/21/24 10:00 09/29/24 09:57 40 MG Ondansetron HCl 4 mg Q4HPRN PRN IV 09/20/24 10:15 Nitroglycerin 0.4 mg Q5MINP PRN SL 09/20/24 10:45 Albuterol 2.5 mg Q6HWA NEB 09/20/24 18:00 09/29/24 06:55 2.5 MG Ipratropium [place] 0.5 mg Q6HWA NEB 09/20/24 18:00 09/29/24 06:55 0.5 MG Nicotine 1 patch DAILY TD 09/21/24 10:00 5/9/25 10:02 1 PATCH Lorazepam 0.5 mg Q6HP PRN IV 09/20/24 14:30 Sodium Chloride 10 ml QSHIFT@10,22 IV 09/21/24 22:00 09/28/24 23:04 10 ML Hydromorphone HCl 1 mg Q4HPRN PRN IV 09/22/24 01:00 09/29/24 10:01 1 MG Hydromorphone HCl 0.5 mg Q4HPRN PRN IV 09/22/24 01:00 09/29/24 06:38 0.5 MG Sodium Chloride 1,000 ml @ 60 mls/hr [id number] IV 09/25/24 11:30 09/29/24 00:32 60 MLS/HR Laboratory Results Laboratory Tests 09/29/24 08:50 Chemistry Test 09/29/24 08:50 Albumin 3.6 g/dL (3.2-4.8) Calcium Level 9.5 mg/dL (8.7-10.4) Magnesium Level 1.9 mg/dL (1.6-2.6) Phosphorus Level 3.2 mg/dL (2.4-5.1) Urinalysis Test 09/25/24 05:55 09/28/24 12:32 Urine Mucus Few (None Seen) Urine Color Light-yellow (Yellow) Urine Clarity Clear (Clear) Urine pH 6.0 (5.0-9.0) Urine Specific [place] 1.015 (1.001-1.035) Urine Protein Negative (Negative) Urine Ketones Negative (Negative) Urine Blood Negative /uL (Negative) Urine Nitrite Negative (Negative) Urine Bilirubin Negative (Negative) Urine Urobilinogen Normal mg/dL (Negative) Urine Leukocyte Esterase Negative /uL (Negative) Urine RBC <1 /hpf (0 - 4) Urine Microscopic WBC < 1 /HPF (0-5) Urine Squamous Epithelial Cells Mod /hpf (<5) Urine Bacteria None seen /hpf (None Seen) Urine Glucose Normal mg/dL (Normal) Labs and/or images reviewed: Labs reviewed by me, Image(s) reviewed by me Assessment/Plan Assessment/Plan Impression: -adenocarcinoma of the sigmoid colon, status post resection -obesity -nicotine dependence -sirs response secondary to surgery -COPD Plan: -restart trilogy and Singulair -nicotine patch -pain management: Transitioned from Dilaudid to [place] -DC TPN, continue advancing oral diet as tolerated -PPI -PUD, DVT prophylaxis -ambulate as tolerated -social service consultation for DME: 3 in 1 -physical therapy -reassess for discharge in a.m. Total time spent with patient discussing and formulating plan of care: 35 minutes. This medical document was created using an electronic medical record system with [employer] dictation system. Although this document has been carefully reviewed, there may still be some phonetic and typographical errors. These areas are purely typographical due to imperfections of the software programs, and do not reflect any compromise in the patient's medical care. Plan discussed with: Patient, Other (RN) My Orders Orders - SUZANNA STUART NP Procedure Category Date Status Time Hydrocodone-Acet PHA 09/29/24 Verified 5/325mg Tab ([place] 11:00 (Nf) Trelegy PHA 09/29/24 Verified 22:00 Montelukast Tablet PHA 09/29/24 Verified (Singulair Tablet) 22:00 * [place] CONS 09/29/24 Verified Consult Date of Service: September 29, 2024 Billing Provider: SUZANNA STUART NP Common Visit Codes: [id number] INP/OBS CARE(HIGH) SUZANNA STUART NP September 29, 2024 11:19
[2024-09-29] MEDS: HYDROcodone-ACET 5/325MG TAB PO PRN (15:31)
[2024-09-29] MEDS: MONTELUKAST SODIUM 10 MG TAB PO SCH (21:00)
[2024-09-29] MEDS: TRELEGY ELLIPTA IN SCH (21:02)
--- NOTE | 2024-09-29 23:15 | DVHPN2 ---
Progress Note - Dictate Date Seen: September 29, 2024 Medical Necessity Reason Pt with a Central, PICC or Fol: No Subjective Patient seen at bedside resting comfortably;Children at [facility] Patient had a liquid bowel movement today and pass some air NG tube was discontinued and patient has been started on clear liquid diet Patient ambulated today with a walker vital signs Vital Sign Date Time Temp Pulse Resp B/P (MAP) Pulse Ox O2 Delivery O2 Flow Rate FiO2 09/29/24 22:22 103 18 131/76 09/29/24 21:00 98.0 96 98.0 09/29/24 19:09 Room Air 0.0 09/29/24 19:09 21 Total Intake and Output 09/28/24 09/28/24 09/29/24 15:00 23:00 07:00 Intake Total 50 ml 100 ml 200 ml Output Total 25 ml Balance 50 ml 75 ml 200 ml medications Current Medications Medications Dose Ordered Sig/Deisy Route Start Time Stop Time Status Last Admin Dose Admin Cefazolin Sodium/ Dextrose 50 ml @ 50 mls/hr Q8H IV 09/20/24 13:00 09/29/24 21:00 50 MLS/HR Metronidazole 100 ml @ 100 mls/hr Q8HR IV 09/20/24 14:00 09/29/24 21:14 100 MLS/HR Pantoprazole Sodium 40 mg DAILY IV 09/21/24 10:00 09/29/24 09:57 40 MG Ondansetron HCl 4 mg Q4HPRN PRN IV 09/20/24 10:15 Nitroglycerin 0.4 mg Q5MINP PRN SL 09/20/24 10:45 Albuterol 2.5 mg Q6HWA NEB 09/20/24 18:00 09/29/24 19:09 2.5 MG Ipratropium [place] 0.5 mg Q6HWA NEB 09/20/24 18:00 09/29/24 19:09 0.5 MG Nicotine 1 patch DAILY TD 09/21/24 10:00 09/29/24 10:02 1 PATCH Lorazepam 0.5 mg Q6HP PRN IV 09/20/24 14:30 Sodium Chloride 10 ml QSHIFT@10,22 IV 09/21/24 22:00 09/29/24 21:14 10 ML Hydromorphone HCl 1 mg Q4HPRN PRN IV 09/22/24 01:00 09/29/24 22:22 1 MG Hydromorphone HCl 0.5 mg Q4HPRN PRN IV 09/22/24 01:00 Hold 09/29/24 06:38 0.5 MG Sodium Chloride 1,000 ml @ 60 mls/hr [id number] IV 09/25/24 11:30 09/29/24 00:32 60 MLS/HR Acetaminophen/ Hydrocodone Bitart 1 tab Q4HPRN PRN PO 09/29/24 11:00 09/29/24 15:31 1 TAB Patient Own Medication 1 puff DAILY IN 09/29/24 22:00 09/29/24 21:02 1 PUFF Montelukast Sodium 10 mg HS PO 09/29/24 22:00 09/29/24 21:00 10 MG objective General: Normal, Well developed, Obese Head/Eyes: Normal ENT: Normal Neck: Normal, Supple Lungs: Normal, Normal inspection Cardiovascular: Normal, Regular rate and rhythm Abdominal: Normal, Soft, No distension;Some bruising near her surgical site Extremities: Normal, No clubbing laboratory and microbiology Laboratory Tests 09/29/24 08:50 Test 09/29/24 08:50 Range/Units Serum Glucose 115 H 74-106 mg/dL Problems(with codes): (1) S/P colon resection (2) Status post laparotomy (3) Adenocarcinoma of sigmoid colon Prognosis PLAN Tolerating diet ; small bowel movements Ambulating ; undergoing PT Ongoing lower abd and pack pain 11/30 Started on oral [place] not helping much Continue supportive care Check final pathology D/C planning with DME ongoing Dietary Evaluation Review Comments: 1) Advance TPN to meet at least 75% estimated needs 2) Advance to low fat diet as medically feasible 3) Continue current plan of care Expected Outcomes/Goals: To meet >75% estimated needs Fu 2-3 days Plan discussed with: Patient CHAZ LAU MD September 29, 2024 23:15
[2024-09-30] VITALS (15 sets, daily range): BP systolic 124–141; BP diastolic 50–86; PULSE 74–115; RESP 16–20; TEMP 97.5–98.3; O2SAT 93–100
[2024-09-30] MEDS: HYDROcodone-ACET 10/325MG TAB PO PRN (12:46)
--- NOTE | 2024-09-30 15:36 | DVHPN2 ---
Subjective Date Seen: September 30, 2024 Post op day Post op day: 10 Patient reports: No new complaints Nursing reports: No new complaints General: Normal HNT: Normal Cardiovascular: Normal Respiratory: Normal Gastrointestinal: Normal Genitourinary: Normal Musculoskeletal: Normal Neurological: Normal Objective Vitals Vital Sign Date Time Temp Pulse Resp B/P (MAP) Pulse Ox O2 Delivery O2 Flow Rate FiO2 09/30/24 14:54 74 18 100 09/30/24 14:46 Room Air 0.0 09/30/24 14:46 21 09/30/24 13:00 98.2 138/60 (86) 98.2 Total Intake and Output 09/29/24 09/29/24 09/30/24 15:00 23:00 07:00 Intake Total 1750 ml Output Total 200 ml 20 ml Balance 1550 ml -20 ml Medications Current Medications Medications Dose Ordered Sig/Deisy Route Start Time Stop Time Status Last Admin Dose Admin Cefazolin Sodium/ Dextrose 50 ml @ 50 mls/hr Q8H IV 09/20/24 13:00 09/30/24 12:46 50 MLS/HR Metronidazole 100 ml @ 100 mls/hr Q8HR IV 09/20/24 14:00 09/30/24 14:31 100 MLS/HR Pantoprazole Sodium 40 mg DAILY IV 09/21/24 10:00 09/30/24 10:15 40 MG Ondansetron HCl 4 mg Q4HPRN PRN IV 09/20/24 10:15 Nitroglycerin 0.4 mg Q5MINP PRN SL 09/20/24 10:45 Albuterol 2.5 mg Q6HWA NEB 09/20/24 18:00 09/30/24 14:46 2.5 MG Ipratropium [place] 0.5 mg Q6HWA NEB 09/20/24 18:00 09/30/24 14:47 0.5 MG Nicotine 1 patch DAILY TD 09/21/24 10:00 09/30/24 10:19 1 PATCH Lorazepam 0.5 mg Q6HP PRN IV 09/20/24 14:30 Sodium Chloride 10 ml QSHIFT@10,22 IV 09/21/24 22:00 09/30/24 10:17 10 ML Hydromorphone HCl 1 mg Q4HPRN PRN IV 09/22/24 01:00 09/30/24 10:16 1 MG Hydromorphone HCl 0.5 mg Q4HPRN PRN IV 09/22/24 01:00 Hold 09/29/24 06:38 0.5 MG Sodium Chloride 1,000 ml @ 60 mls/hr [id number] IV 09/25/24 11:30 09/29/24 00:32 60 MLS/HR Acetaminophen/ Hydrocodone Bitart 1 tab Q4HPRN PRN PO 09/29/24 11:00 Hold 09/29/24 15:31 1 TAB Patient Own Medication 1 puff DAILY IN 09/29/24 22:00 09/30/24 10:16 1 PUFF Montelukast Sodium 10 mg HS PO 09/29/24 22:00 09/29/24 21:00 10 MG Acetaminophen/ Hydrocodone Bitart 1 tab Q4HP PRN PO 09/30/24 11:30 09/30/24 12:46 1 TAB Oxycodone HCl 15 mg Q12HR PO 09/30/24 22:00 UNV General: Normal, Well developed, Obese Head/Eyes: Normal ENT: Normal Neck: Normal, Supple Lungs: Normal, Normal inspection Cardiovascular: Normal, Regular rate and rhythm Abdominal: Normal, Soft, No distension Extremities: Normal, No clubbing Labs and Microbiology Laboratory Tests 09/29/24 08:50 Test 09/29/24 08:50 Range/Units Serum Glucose 115 H 74-106 mg/dL Ass/Plan Labs and/or images reviewed: Labs reviewed by me, Image(s) reviewed by me Problem List 09/21/24 poor pain control, wound zack and well approximated, expalined Operative findings, needs to remain NPO with NGT till has a BOWEL MOVEMENT , will keep at bed rest the next 72 hours. in order to minimize tension of rectal anastomosis 09/23/24 feels well, abdomen non distended, appropriately tender, wound clean and well approximated, drainage per MELISA drain serous. Continue as is, will allow Toradol to help woith pain control 09/25/24 minimal flatus, no bm, abdomen non distended, will allow ambulation 09/26/24 passed flatus and had a bowel movements, will dc NGT and allow clear liquids, labs OK, abdomen non distended, appropriately tender, wound clean and well approximated 09/28/24 bowel function improving, less pain, no nausea, abdomen still somewhat tender, Will advance diet and tomorrow will DC her MELISA drain. 09/29/24 SHE FEELS WELL, TOLERATING PO DIET, HAVING BMs AND PASSING FLATUS. SHE IS CLEARED FOR DISCHARGE, DRAIN STILL WITH SECRETION, WILL DC DRAIN IN OFFICE Assessment/Plan 09/22/24 s/p colon resection POD#3 abdomen soft, non distended, appropriately tender wound clean dry and intact MELISA drain serous sanguinous 10cc denies nausea or vomiting Plan: continue with current treatment patient to use incentive spirometer every hour 09/24/24 s/p colon resection POD#5 abdomen soft, non distended, appropriately tender wound clean dry and intact MELISA drain minimal serous sanguinous denies nausea or vomiting patient unsure if she passed any gas Plan: continue with current treatment patient to use incentive spirometer every hour possible ambulation on Wednesday09/27/24 s/p colon resection POD#8 abdomen soft, non distended, appropriately tender wound clean dry and intact MELISA drain minimal serous sanguinous denies nausea or vomiting passing gas, BM Plan: continue with current treatment patient to use incentive spirometer every hour patient to ambulate ok to drink Ensure CLEAR 09/30/2024 s/p colon resection POD #10 labs reviewed, notes reviewed complaint of pain , asking for pain medication that will help tolerate pain at home abdomen soft, non distended, appropriately tender wound clean dry and intact MELISA drain minimal serous sanguinous tolerating diet denies nausea or vomiting passing gas, BM Plan: patient to ambulate ok to discharge per surgery point of view patient to drink plenty of fluids reduce use of narcotics follow up in clinic in 10-14 days Prognosis: Good Plan discussed with patient, Dr. White Visit Coding Surgery Date of Service if different f: September 30, 2024 Billing Provider: ALFA WHITE MD Surgery Visit Codes: [id number] INP/OBS CARE(HIGH) TRAV MINER NP September 30, 2024 15:36
--- NOTE | 2024-09-30 17:06 | DVHPN2 ---
Progress Note - Dictate Date Seen: September 30, 2024 Medical Necessity Reason Pt with a Central, PICC or Fol: No Subjective POD# 10 s/p laparotomy wirh LAR Tolerating diet and ambulating Ongoing lower abdominal pain vital signs Vital Sign Date Time Temp Pulse Resp B/P (MAP) Pulse Ox O2 Delivery O2 Flow Rate FiO2 09/30/24 14:54 74 18 100 09/30/24 14:46 Room Air 0.0 09/30/24 14:46 21 09/30/24 13:00 98.2 138/60 (86) 98.2 Total Intake and Output 09/29/24 09/29/24 09/30/24 15:00 23:00 07:00 Intake Total 1750 ml Output Total 200 ml 20 ml Balance 1550 ml -20 ml medications Current Medications Medications Dose Ordered Sig/Deisy Route Start Time Stop Time Status Last Admin Dose Admin Cefazolin Sodium/ Dextrose 50 ml @ 50 mls/hr Q8H IV 09/20/24 13:00 09/30/24 12:46 50 MLS/HR Metronidazole 100 ml @ 100 mls/hr Q8HR IV 09/20/24 14:00 09/30/24 14:31 100 MLS/HR Pantoprazole Sodium 40 mg DAILY IV 09/21/24 10:00 09/30/24 10:15 40 MG Ondansetron HCl 4 mg Q4HPRN PRN IV 09/20/24 10:15 Nitroglycerin 0.4 mg Q5MINP PRN SL 09/20/24 10:45 Albuterol 2.5 mg Q6HWA NEB 09/20/24 18:00 09/30/24 14:46 2.5 MG Ipratropium [place] 0.5 mg Q6HWA NEB 09/20/24 18:00 09/30/24 14:47 0.5 MG Nicotine 1 patch DAILY TD 09/21/24 10:00 09/30/24 10:19 1 PATCH Lorazepam 0.5 mg Q6HP PRN IV 09/20/24 14:30 Sodium Chloride 10 ml QSHIFT@10,22 IV 09/21/24 22:00 09/30/24 10:17 10 ML Hydromorphone HCl 1 mg Q4HPRN PRN IV 09/22/24 01:00 09/30/24 10:16 1 MG Hydromorphone HCl 0.5 mg Q4HPRN PRN IV 09/22/24 01:00 Hold 09/29/24 06:38 0.5 MG Sodium Chloride 1,000 ml @ 60 mls/hr [id number] IV 09/25/24 11:30 09/29/24 00:32 60 MLS/HR Acetaminophen/ Hydrocodone Bitart 1 tab Q4HPRN PRN PO 09/29/24 11:00 Hold 09/29/24 15:31 1 TAB Patient Own Medication 1 puff DAILY IN 09/29/24 22:00 09/30/24 10:16 1 PUFF Montelukast Sodium 10 mg HS PO 09/29/24 22:00 09/29/24 21:00 10 MG Acetaminophen/ Hydrocodone Bitart 1 tab Q4HP PRN PO 09/30/24 11:30 09/30/24 12:46 1 TAB Oxycodone HCl 15 mg Q12HR PO 09/30/24 22:00 Future Hold objective General: Normal, Well developed, Obese Head/Eyes: Normal ENT: Normal Neck: Normal, Supple Lungs: Normal, Normal inspection Cardiovascular: Normal, Regular rate and rhythm Abdominal: Normal, Soft, No distension;Some bruising near her surgical site Extremities: Normal, No clubbing laboratory and microbiology Laboratory Tests 09/29/24 08:50 Test 09/29/24 08:50 Range/Units Serum Glucose 115 H 74-106 mg/dL Problems(with codes): (1) S/P colon resection (2) Status post laparotomy (3) Adenocarcinoma of sigmoid colon Prognosis PLAN Surgical follow up appreciated and recommendations noted patient to ambulate ok to discharge per surgery point of view patient to drink plenty of fluids reduce use of narcotics follow up in clinic in 10-14 days Final pathology still pending Dietary Evaluation Review Comments: 1) Advance TPN to meet at least 75% estimated needs 2) Advance to low fat diet as medically feasible 3) Continue current plan of care Expected Outcomes/Goals: To meet >75% estimated needs Fu 2-3 days Plan discussed with: Patient CHAZ LAU MD September 30, 2024 17:06
[2024-09-30] MEDS: oxyCODONE ER 10 MG TAB PO SCH (21:48)
[2024-09-30] MEDS ORDERED: oxyCODONE ER 10 MG TAB PO SCH (22:00)
--- NOTE | 2024-09-30 23:12 | DVHPN2 ---
Subjective The patient seen and examined at bedside. Complain of pain is not controlled well. The patient worry that she can not take Dilaudid at home when she gets discharge. She said [place] did not help her that much Reviewed: Care Plan, H&P, Labs, Medications, Previous Orders, Radiology Changes from previous H/P or p: No Changes General: Per HPI Objective Vitals Vital Signs Date Time Temp Pulse Resp B/P (MAP) Pulse Ox O2 Delivery O2 Flow Rate FiO2 09/30/24 21:00 97.7 103 18 136/63 (87) 97 97.7 09/30/24 14:46 Room Air 0.0 09/30/24 14:46 21 Intake/Output Intake and Output 09/30/24 07:00 Intake Total 1750 ml Output Total 220 ml Balance 1530 ml Intake Oral 1600 ml IV Total 150 ml Output Urine Total 200 ml Drainage Total 20 ml # Voids 5 # Bowel Movements 2 General Appearance: Alert, Oriented X3, Cooperative, No acute distress HEENT: Atraumatic, PERRLA, EOMI, Mucous membr. moist/pink Neck: Supple Lungs: Clear to auscultation, Normal air movement Cardiovascular: Regular rate, Normal S1, Normal S2, No murmurs, Gallops, Rubs Abdomen: Normal bowel sounds, Soft, No tenderness, Other (Abdominal wound well approximated. MELISA drain with scant serosanguineous fluid) Neuro: Cranial nerves 3-12 NL Psych/Mental Status: Mental status NL Medications Current Medications Medications Dose Ordered Sig/Deisy Route Start Time Stop Time Status Last Admin Dose Admin Cefazolin Sodium/ Dextrose 50 ml @ 50 mls/hr Q8H IV 09/20/24 13:00 09/30/24 20:27 50 MLS/HR Metronidazole 100 ml @ 100 mls/hr Q8HR IV 09/20/24 14:00 09/30/24 21:50 100 MLS/HR Pantoprazole Sodium 40 mg DAILY IV 09/21/24 10:00 09/30/24 10:15 40 MG Ondansetron HCl 4 mg Q4HPRN PRN IV 09/20/24 10:15 Nitroglycerin 0.4 mg Q5MINP PRN SL 09/20/24 10:45 Albuterol 2.5 mg Q6HWA NEB 09/20/24 18:00 09/30/24 18:38 [address] [place] 0.5 mg Q6HWA NEB 09/20/24 18:00 09/30/24 18:38 0.5 MG Nicotine 1 patch DAILY TD 09/21/24 10:00 09/30/24 10:19 1 PATCH Lorazepam 0.5 mg Q6HP PRN IV 09/20/24 14:30 Sodium Chloride 10 ml QSHIFT@10,22 IV 09/21/24 22:00 09/30/24 21:45 10 ML Hydromorphone HCl 1 mg Q4HPRN PRN IV 09/22/24 01:00 09/30/24 17:05 1 MG Hydromorphone HCl 0.5 mg Q4HPRN PRN IV 09/22/24 01:00 Hold 09/29/24 06:38 0.5 MG Sodium Chloride 1,000 ml @ 60 mls/hr [id number] IV 09/25/24 11:30 09/29/24 00:32 60 MLS/HR Acetaminophen/ Hydrocodone Bitart 1 tab Q4HPRN PRN PO 09/29/24 11:00 Hold 09/29/24 15:31 1 TAB Patient Own Medication 1 puff DAILY IN 09/29/24 22:00 09/30/24 10:16 1 PUFF Montelukast Sodium 10 mg HS PO 09/29/24 22:00 09/30/24 21:46 10 MG Acetaminophen/ Hydrocodone Bitart 1 tab Q4HP PRN PO 09/30/24 11:30 09/30/24 12:46 1 TAB Oxycodone HCl 10 mg Q12HR PO 09/30/24 22:00 09/30/24 21:48 10 MG Laboratory Results Laboratory Tests 09/29/24 08:50 Urinalysis Test 09/25/24 05:55 09/28/24 12:32 Urine Mucus Few (None Seen) Urine Color Light-yellow (Yellow) Urine Clarity Clear (Clear) Urine pH 6.0 (5.0-9.0) Urine Specific [place] 1.015 (1.001-1.035) Urine Protein Negative (Negative) Urine Ketones Negative (Negative) Urine Blood Negative /uL (Negative) Urine Nitrite Negative (Negative) Urine Bilirubin Negative (Negative) Urine Urobilinogen Normal mg/dL (Negative) Urine Leukocyte Esterase Negative /uL (Negative) Urine RBC <1 /hpf (0 - 4) Urine Microscopic WBC < 1 /HPF (0-5) Urine Squamous Epithelial Cells Mod /hpf (<5) Urine Bacteria None seen /hpf (None Seen) Urine Glucose Normal mg/dL (Normal) Labs and/or images reviewed: Labs reviewed by me Assessment/Plan Assessment/Plan COPD Tobacco abuse Obesity Status post sigmoid surgery for colon cancer Continuing management. Continuing with IV fluids Contributing with pain medication Advised to stop smoking more than 15 minutes Continuing PT to get out of bed and ambulate. We will add oxycodone extended release 10 mg twice per day. Continuing with [place] 5/325 every 6 hours p.r.n. for breakthrough pain This medical document was created using an electronic medical record system with [employer] computerized dictation system. Although this document has been carefully reviewed, there may still be some phonetic and typographical errors. These areas are purely typographical due to imperfections of the software programs, and do not reflect any compromise in the patient's medical care. Plan discussed with: Patient My Orders Orders - URSULA TITUS MD Procedure Category Date Status Time Hydrocodone-Acet PHA 09/30/24 In Process 10/325mg Tab ([place] 11:30 Soft Diet DIET 09/30/24 Transmitted Dinner Oxycodone Er Tablet PHA 09/30/24 In Process (Oxycontin Er Tablet 22:00 Date of Service: September 30, 2024 Billing Provider: URSULA TITUS MD Common Visit Codes: [id number] INP/OBS CARE(HIGH) URSULA TITUS MD September 30, 2024 23:12
[2024-10-01] VITALS (16 sets, daily range): BP systolic 112–130; BP diastolic 57–82; PULSE 89–106; RESP 16–20; TEMP 97.5–98.5; O2SAT 92–100
[2024-10-01] MEDS: HYDROmorphone HCL 2 MG/ML VL/or syr IV ONE (08:51)
[2024-10-01] MEDS: HYDROmorphone HCL 2 MG/ML VL/or syr IV PRN (15:33)
[2024-10-01] MEDS: oxyCODONE ER 20 MG TAB PO SCH (22:04)
--- NOTE | 2024-10-01 23:12 | DVHPN2 ---
Subjective The patient seen and examined at bedside. The patient is worry about pain is not controlled well. Yesterday start her on oxycodone ER 10 mg twice per day but she said is not strong enough Reviewed: Care Plan, H&P, Labs, Medications, Previous Orders, Radiology Changes from previous H/P or p: No Changes General: Per HPI Objective Vitals Vital Signs Date Time Temp Pulse Resp B/P (MAP) Pulse Ox O2 Delivery O2 Flow Rate FiO2 10/01/24 21:00 98.1 99 18 112/65 (81) 97 98.1 10/01/24 18:56 Room Air 10/01/24 18:56 0 21 Intake/Output Intake and Output 10/01/24 07:00 Intake Total 1350 ml Balance 1350 ml IV Total 1350 ml General Appearance: Alert, Oriented X3, Cooperative, No acute distress HEENT: Atraumatic, PERRLA, EOMI, Mucous membr. moist/pink Neck: Supple Lungs: Clear to auscultation, Normal air movement Cardiovascular: Regular rate, Normal S1, Normal S2, No murmurs, Gallops, Rubs Abdomen: Normal bowel sounds, Soft, No tenderness, Other (Abdominal wound well approximated. MELISA drain with scant serosanguineous fluid) Neuro: Cranial nerves 3-12 NL Psych/Mental Status: Mental status NL Medications Current Medications Medications Dose Ordered Sig/Deisy Route Start Time Stop Time Status Last Admin Dose Admin Metronidazole 100 ml @ 100 mls/hr Q8HR IV 09/20/24 14:00 10/01/24 22:03 100 MLS/HR Pantoprazole Sodium 40 mg DAILY IV 09/21/24 10:00 10/01/24 10:37 40 MG Ondansetron HCl 4 mg Q4HPRN PRN IV 09/20/24 10:15 Nitroglycerin 0.4 mg Q5MINP PRN SL 09/20/24 10:45 Albuterol 2.5 mg Q6HWA NEB 09/20/24 18:00 10/01/24 18:56 2.5 MG Ipratropium S[place]ry 0.5 mg Q6HWA NEB 09/20/24 18:00 10/01/24 18:56 0.5 MG Nicotine 1 patch DAILY TD 09/21/24 10:00 10/01/24 10:38 1 PATCH Lorazepam 0.5 mg Q6HP PRN IV 09/20/24 14:30 Sodium Chloride 10 ml QSHIFT@10,22 IV 09/21/24 22:00 10/01/24 22:06 10 ML Hydromorphone HCl 0.5 mg Q4HPRN PRN IV 09/22/24 01:00 Hold 09/29/24 06:38 0.5 MG Sodium Chloride 1,000 ml @ 60 mls/hr [id number] IV 09/25/24 11:30 10/01/24 00:51 60 MLS/HR Acetaminophen/ Hydrocodone Bitart 1 tab Q4HPRN PRN PO 09/29/24 11:00 Hold 09/29/24 15:31 1 TAB Patient Own Medication 1 puff DAILY IN 09/29/24 22:00 10/01/24 10:39 1 PUFF Montelukast Sodium 10 mg HS PO 09/29/24 22:00 10/01/24 22:04 10 MG Acetaminophen/ Hydrocodone Bitart 1 tab Q4HP PRN PO 09/30/24 11:30 09/30/24 12:46 1 TAB Oxycodone HCl 20 mg Q12HR PO 10/01/24 22:00 10/01/24 22:04 20 MG Hydromorphone HCl 0.5 mg Q4HPRN PRN IV 10/01/24 15:00 10/01/24 15:33 0.5 MG Laboratory Results Laboratory Tests 09/29/24 08:50 Urinalysis Test 09/25/24 05:55 09/28/24 12:32 Urine Mucus Few (None Seen) Urine Color Light-yellow (Yellow) Urine Clarity Clear (Clear) Urine pH 6.0 (5.0-9.0) Urine Specific [place] 1.015 (1.001-1.035) Urine Protein Negative (Negative) Urine Ketones Negative (Negative) Urine Blood Negative /uL (Negative) Urine Nitrite Negative (Negative) Urine Bilirubin Negative (Negative) Urine Urobilinogen Normal mg/dL (Negative) Urine Leukocyte Esterase Negative /uL (Negative) Urine RBC <1 /hpf (0 - 4) Urine Microscopic WBC < 1 /HPF (0-5) Urine Squamous Epithelial Cells Mod /hpf (<5) Urine Bacteria None seen /hpf (None Seen) Urine Glucose Normal mg/dL (Normal) Labs and/or images reviewed: Labs reviewed by me Assessment/Plan Assessment/Plan COPD Tobacco abuse Obesity Status post sigmoid surgery for colon cancer Continuing management. Continuing with IV fluids Contributing with pain medication Advised to stop smoking more than 15 minutes Continuing with low-fiber diet The patient's stay her pain is not controlled with oxycodone 10 mg twice per day. We will increase to 20 mg twice per day. Continuing [place] for breakthrough pain This medical document was created using an electronic medical record system with [employer] direct computerized dictation system. Although this document has been carefully reviewed, there may still be some phonetic and typographical errors. These areas are purely typographical due to imperfections of the software programs, and do not reflect any compromise in the patient's medical care. Plan discussed with: Patient My Orders Orders - URSULA TITUS MD Procedure Category Date Status Time Oxycodone Er Tablet PHA 10/01/24 In Process (Oxycontin Er Tablet 22:00 Hydromorphone PHA 10/01/24 In Process Injection (Dilaudid 15:00 Date of Service: October 01, 2024 Billing Provider: URSULA TITUS MD Common Visit Codes: [id number] INP/OBS CARE(HIGH) URSULA TITUS MD October 01, 2024 23:12
[2024-10-02] VITALS (13 sets, daily range): BP systolic 109–127; BP diastolic 64–87; PULSE 85–99; RESP 14–17; TEMP 36.5; O2SAT 92–100
[2024-10-02 11:05] LABS: Basophils # (auto) 0.1 10 ^3/uL (0-0.2); Basophils % (auto) 0.8 % (0.0-2.0); Eosinophils # (auto) 0.2 10 ^3/uL (0-0.8); Eosinophils % (auto) 2.9 % (0.0-7.0); Hematocrit 31.5 % (36.0-46.0); Hemoglobin 10.7 g/dL (12.2-16.2); Lymphocytes # (auto) 1.2 10 ^3/uL (0.4-5.4); Lymphocytes % (auto) 14.8 % (10.0-50.0); Mean Corpuscular Hemoglobin 30.9 pg (28.0-32.0); Mean Corpuscular Hgb Conc. 33.9 g/dL (32.0-36.0); Mean Corpuscular Volume 91.2 fL (80.0-100.0); Monocytes # (auto) 0.6 10 ^3/uL (0-1.3); Monocytes % (auto) 7.3 % (0.0-12.0); Neutrophils # (auto) 5.8 10 ^3/uL (1.6-8.6); Neutrophils % (auto) 74.2 % (37.0-80.0); Platelet Count (auto) 342 10^3/uL (140-450); Red Blood Cells 3.46 10^6/uL (4.0-5.20); Red Cell Distribution Width 13.9 % (11.8-14.3); White Blood Cell 7.8 10^3/uL (4.4-10.8)
[2024-10-02 11:13] LABS: Chloride 105 mmol/L (98-107); Potassium 4.1 mmol/L (3.5-5.1); Sodium 139 mmol/L (136-145)
[2024-10-02 11:14] LABS: Anion Gap 7 (5-15); Carbon Dioxide 27 mmol/L (20-31)
[2024-10-02 11:15] LABS: Calcium 9.7 mg/dL (8.7-10.4)
[2024-10-02 11:19] LABS: Glucose 89 mg/dL (74-106)
[2024-10-02 11:20] LABS: BUN/Creatinine Ratio 11.1 (10.0-20.0)
[2024-10-02 11:23] LABS: Blood Urea Nitrogen 8 mg/dL (9-23)
[2024-10-02] MEDS ORDERED: IBUP1TAB5 PO (11:44)
[2024-10-02] MEDS ORDERED: OXY20CRT PO (11:44)
[2024-10-02] MEDS ORDERED: PANT40TA2 PO (11:44)
[2024-10-02] MEDS ORDERED: MORP1TAB12 PO (15:15)
[2024-10-02] MEDS ORDERED: OXYC-963 PO (15:54)
[2024-10-02] MEDS ORDERED: PERCOT PO (16:32)
--- NOTE | 2024-10-02 18:06 | DVHDS ---
DATE OF DISCHARGE: 10/02/2024 HISTORY OF PRESENT ILLNESS: The patient is a 44-year-old lady who was admitted after she underwent surgery for a recently diagnosed colon cancer. The patient has history of COPD, and tobacco abuse. HOSPITAL COURSE: The patient was seen in Surgery consult by Dr. White. The patient was placed on TPN while in the hospital. The patient has since been tolerating her oral diet and has bowel activity. She will now be discharged home to be on OxyContin ER 20 mg b.i.d. p.r.n., ibuprofen p.r.n. for pain, and Protonix 40 mg daily. She will resume the rest of her home medications. FINAL DIAGNOSES: Therefore: * Colon cancer, status post surgery. * COPD. * Tobacco abuse. * Obesity. Time spent in discharge planning and review of plan with the patient and nursing was 38 minutes. MD SHIRA Chan/ZULEMA TID: [id number] RECEIPT: [id number]
== END 2024-10-02 17:26 | disposition home or self-care (01) | DRG 330 ==
LOC: SUR 06:15 → EEVIPCON 10:39 → OVERFLOW 10:39 → WEST WING 11:49 → TELE-WESTW 13:39 → WEST WING 09-28 02:59
PROVIDERS: ADMIT Internal Medicine; ATTEND Internal Medicine
PROC: 0DBN0ZZ Excision of Sigmoid Colon, Open Approach (ICD-10-PCS; 2024-09-20)
PROC: 0DBP0ZZ Excision of Rectum, Open Approach (ICD-10-PCS; principal; 2024-09-20 07:25)
PROC: 02HV33Z Insertion of Infusion Device into Superior Vena Cava, Percutaneous Approach (ICD-10-PCS; 2024-09-21)
PROC: B548ZZA Ultrasonography of Superior Vena Cava, Guidance (ICD-10-PCS; 2024-09-21)
DX: C20 Malignant neoplasm of rectum (principal); C18.7 Malignant neoplasm of sigmoid colon; R65.10 Systemic inflammatory response syndrome (SIRS) of non-infectious origin without acute organ dysfunction; J44.9 Chronic obstructive pulmonary disease, unspecified; E66.01 Morbid (severe) obesity due to excess calories; F17.210 Nicotine dependence, cigarettes, uncomplicated; Z68.35 Body mass index [BMI] 35.0-35.9, adult; Z79.899 Other long term (current) drug therapy; Z71.6 Tobacco abuse counseling
CPT/HCPCS: 36415; 36569; 71045; 76937; 80048; 80053; 80069; 81001; 82962; 83735; 84100; 84478; 84702; 85007; 85025; 85027; 85610; 85730; 86850; 86900; 86901; 94640; 97110; 97116; 97163; 97530; G0378; J0131; J0171; J1100; J1815; J1885; J2003; J2405; J2470; J2704; J3490; J7060; J7131

== ENCOUNTER 2024-12-13 10:13 | Outpatient (CLI) | payer BC ==
[~2024-12-13 10:13] MED LIST changes: +ALBU2TAB11 PO; +IBUP1TAB5 PO; +PANT40TA2 PO; +PERCOT PO
[2024-12-13 11:33] LABS: Hematocrit 41.3 % (36.0-46.0); Hemoglobin 14.2 g/dL (12.2-16.2); Mean Corpuscular Hemoglobin 30.1 pg (28.0-32.0); Mean Corpuscular Volume 87.8 fL (80.0-100.0); Nucleated Red Blood Cells % 0.0 %
[2024-12-13 11:47] LABS: Alanine Aminotransferase 24 U/L (7-40); Alkaline Phosphatase 76 U/L (46-116); Anion Gap 8 (5-15); BUN/Creatinine Ratio 10.5 (10.0-20.0); Bilirubin, Total 0.5 mg/dL (0.2-1.0); Carbon Dioxide 29 mmol/L (20-31); Chloride 105 mmol/L (98-107); Glucose 87 mg/dL (74-106); Potassium 4.0 mmol/L (3.5-5.1); Sodium 142 mmol/L (136-145); Total Protein 7.3 g/dL (5.7-8.2)
[2024-12-13 11:49] LABS: Albumin 4.8 g/dL (3.2-4.8); Blood Urea Nitrogen 8 mg/dL (9-23); Calcium 10.5 mg/dL (8.7-10.4)
== END 2024-12-13 17:00 | disposition home or self-care (01) ==
LOC: LAB 10:13
PROVIDERS: ATTEND Internal Medicine Hematology & Oncology
DX: C18.7 Malignant neoplasm of sigmoid colon (principal)
CPT/HCPCS: 36415; 80053; 82378; 85025

== ENCOUNTER 2025-02-16 07:56 | Outpatient (CLI) | payer BC ==
[2025-02-16 08:30] LABS: Hematocrit 40.8 % (36.0-46.0); Hemoglobin 13.9 g/dL (12.2-16.2); Mean Corpuscular Hemoglobin 30.2 pg (28.0-32.0); Mean Corpuscular Volume 88.7 fL (80.0-100.0); Nucleated Red Blood Cells % 0.1 %
[2025-02-16 09:03] LABS: Alanine Aminotransferase 27 U/L (7-40); Albumin 4.3 g/dL (3.2-4.8); Alkaline Phosphatase 75 U/L (46-116); Anion Gap 7 (5-15); BUN/Creatinine Ratio 10.5 (10.0-20.0); Bilirubin, Total 0.4 mg/dL (0.2-1.0); Calcium 9.6 mg/dL (8.7-10.4); Carbon Dioxide 28 mmol/L (20-31); Chloride 107 mmol/L (98-107); Glucose 95 mg/dL (74-106); Potassium 3.9 mmol/L (3.5-5.1); Sodium 142 mmol/L (136-145); Total Protein 7.0 g/dL (5.7-8.2)
[2025-02-16 09:04] LABS: Blood Urea Nitrogen 8 mg/dL (9-23)
== END 2025-02-16 17:00 | disposition home or self-care (01) ==
LOC: LAB 07:56
PROVIDERS: ATTEND Internal Medicine
DX: C18.9 Malignant neoplasm of colon, unspecified (principal); D64.9 Anemia, unspecified
CPT/HCPCS: 36415; 80053; 82378; 83540; 85025

== ENCOUNTER → 2025-03-16 | Outpatient (CLI) | payer BC ==
[2025-03-16 12:29] LABS: Hematocrit 42.6 % (36.0-46.0); Hemoglobin 14.5 g/dL (12.2-16.2); Mean Corpuscular Hemoglobin 30.8 pg (28.0-32.0); Mean Corpuscular Volume 90.3 fL (80.0-100.0); Nucleated Red Blood Cells % 0.0 %
[2025-03-16 13:21] LABS: Follicle Stimulating Hormone 71.06 IU/L (SEE BELOW)
== END | disposition home or self-care (01) ==
LOC: LAB 11:23
PROVIDERS: ATTEND Obstetrics & Gynecology
DX: E28.2 Polycystic ovarian syndrome (principal); Z01.419 Encounter for gynecological examination (general) (routine) without abnormal findings
CPT/HCPCS: 36415; 82670; 83001; 83002; 83036; 84403; 84443; 85025

== ENCOUNTER 2025-03-26 12:40 | Outpatient (CLI) | payer BC ==
[2025-03-26 14:20] LABS: Hematocrit 40.8 % (36.0-46.0); Hemoglobin 13.7 g/dL (12.2-16.2); Mean Corpuscular Hemoglobin 30.4 pg (28.0-32.0); Mean Corpuscular Volume 90.5 fL (80.0-100.0); Nucleated Red Blood Cells % 0.0 %
[2025-03-26 16:19] LABS: Alanine Aminotransferase 24 U/L (7-40); Albumin 4.4 g/dL (3.2-4.8); Alkaline Phosphatase 79 U/L (46-116); Anion Gap 5 (5-15); BUN/Creatinine Ratio 10.8 (10.0-20.0); Bilirubin, Total 0.3 mg/dL (0.2-1.0); Blood Urea Nitrogen 9 mg/dL (9-23); Calcium 9.9 mg/dL (8.7-10.4); Carbon Dioxide 30 mmol/L (20-31); Chloride 107 mmol/L (98-107); Glucose 85 mg/dL (74-106); Potassium 3.9 mmol/L (3.5-5.1); Sodium 142 mmol/L (136-145); Total Protein 7.3 g/dL (5.7-8.2)
== END 2025-03-26 17:00 | disposition home or self-care (01) ==
LOC: LAB 12:40
PROVIDERS: ATTEND Internal Medicine
DX: C18.7 Malignant neoplasm of sigmoid colon (principal)
CPT/HCPCS: 36415; 80053; 82378; 85025

== ENCOUNTER 2025-05-04 06:12 | Day surgery (SDC) | payer BC ==
[2025-05-03 09:53] LABS: Hematocrit 42.2 % (36.0-46.0); Hemoglobin 14.1 g/dL (12.2-16.2); Mean Corpuscular Hemoglobin 30.3 pg (28.0-32.0); Mean Corpuscular Volume 90.8 fL (80.0-100.0); Nucleated Red Blood Cells % 0.0 %
[2025-05-03 10:04] LABS: Urine Protein, UAD Negative (Negative)
[2025-05-03 10:08] LABS: INR 1.0 (0.9-1.15); Partial Thromboplastin Time 28.9 SEC (24.5-34.5); Prothrombin Time 10.6 sec (9.3-11.8)
[2025-05-03 10:41] LABS: Alanine Aminotransferase 27 U/L (7-40); Albumin 4.5 g/dL (3.2-4.8); Alkaline Phosphatase 82 U/L (46-116); Anion Gap 7 (5-15); BUN/Creatinine Ratio 10.5 (10.0-20.0); Calcium 9.9 mg/dL (8.7-10.4); Carbon Dioxide 28 mmol/L (20-31); Chloride 107 mmol/L (98-107); Glucose 79 mg/dL (74-106); Potassium 4.2 mmol/L (3.5-5.1); Sodium 142 mmol/L (136-145); Total Protein 7.3 g/dL (5.7-8.2)
[2025-05-03 10:42] LABS: Bilirubin, Total 0.3 mg/dL (0.2-1.0); Blood Urea Nitrogen 8 mg/dL (9-23)
[~2025-05-04] VITALS: Ht 165.1 cm; Wt 94.3 kg
[~2025-05-04 06:12] MED LIST changes: -ALBU2TAB11 PO; -PANT40TA2 PO; -PERCOT PO
--- NOTE | 2025-05-04 06:27 | DVHHP ---
ADMIT DATE: 05/04/2025 CHIEF COMPLAINT: Postmenopausal bleeding. HISTORY OF PRESENT ILLNESS: The patient is a 45-year-old 2, para 2, admitted for D and C, hysteroscopy. The patient reports having had some bleeding. She is postmenopausal. Her uterus is 7 weeks' size. Endometrial thickness is 0.7 cm. PAST MEDICAL HISTORY: Colon cancer. PAST SURGICAL HISTORY: Colon resection, bilateral salpingectomy. SOCIAL HISTORY: Two normal vaginal delivery. ALLERGIES: No known drug allergies. REVIEW OF SYSTEMS: Consistent with HPI. PHYSICAL EXAMINATION: VITAL SIGNS: Stable, afebrile. HEENT: Within normal limits. CARDIOVASCULAR: Regular rate and rhythm. LUNGS: Clear to auscultation. BREASTS: Breasts are symmetrical. No masses. ABDOMEN: Soft, nontender. PELVIC: External genitalia within normal limits. Vagina atrophic. Cervix grossly normal appearing. Uterus 7-week size. Adnexa nonpalpable. EXTREMITIES: No clubbing, cyanosis or edema. IMPRESSION: Postmenopausal bleeding. PLAN: Hysteroscopy. Informed consent obtained. Risks and complications of surgery including infection, perforation of the uterus, risk of anesthesia were discussed. The patient options reviewed. All questions answered. The patient fully understands. She wishes to proceed with the planned procedure. DO ALBINO Ascencio TID: [id number] RECEIPT: [id number]
[2025-05-04] MEDS ORDERED: LIDOCAINE 1% INJ PF 5ML AMP ONE (06:48)
[2025-05-04] MEDS ORDERED: ONDANSETRON HCL 4 MG/2 ML VIAL ONE (06:48)
[2025-05-04] MEDS ORDERED: KETOROLAC TROMETH 30 MG/ML 1ML VIAL ONE (06:48)
[2025-05-04] MEDS ORDERED: KETAMINE 50mg/ML 1ml syringe ONE (06:49)
[2025-05-04] MEDS ORDERED: GLYCOPYRROLATE 0.2 MG/ML 1ML VIAL ONE (06:49)
[2025-05-04] MEDS ORDERED: PROPOFOL 10 MG/ML 20 ML IV ONE (06:49)
[2025-05-04] MEDS ORDERED: ACETAMINOPHEN IV 100 ML IV ONE (07:01)
[2025-05-04] MEDS: ACETAMINOPHEN IV 1000 MG/100ML (10MG/ML) IV ONE (07:02)
[2025-05-04] MEDS ORDERED: HYDR-4072 PO (08:06)
[2025-05-04] MEDS ORDERED: ZOFR4T PO (08:06)
[2025-05-04] MEDS: ceFAZolin 2 GM/D5W50ml 50 ML IV ONE (08:10)
[2025-05-04] MEDS ORDERED: LACTATED RINGER'S 1,000 ML IV SCH (08:15)
[2025-05-04] MEDS ORDERED: ONDANSETRON HCL 4 MG/2 ML VIAL IV PRN ×2 (08:15→08:45)
[2025-05-04 08:28] VITALS: PULSE 78; RESP 12; TEMP 98.1; O2SAT 98
--- NOTE | 2025-05-04 08:37 | DVHOP2 ---
Operative Report DATE OF OPERATION: 05/04/25 PREOPERATIVE DIAGNOSES: postmenopausal bleeding,endometrial hypeplasia POSTOPERATIVE DIAGNOSES: no evidence of endometrial hyperplasia,atrophic endpmetrium SURGEON: Leah Smith D.O. ANESTHESIOLOGIST: samantha TYPE OF ANESTHESIA : General. CONSENT: The patient was informed of the risks and benefits of the procedure. The patient was informed of the risks and benefits of the procedure. These include but are not limited to , complications of anesthesia, postoperative infection, incomplete relief of symptoms, recurrence of symptoms, damage to blood vessels, nerves and tendons, deep venous thrombosis, pulmonary embolism and possible need for repeat surgery in the future. FINDINGS: at [facility], 7 weeks size uterus with no evidence of polyp or myoma Cervix, Bulbous, [place], and urethrovesical glands appeared normal[place] [facility] [place] [facility] [place]: None. BLOOD PRODUCTS USED: None. PROCEDURES: Hysteroscopy and dilatation and curettage. PROCEDURE IN DETAIL: The patient was taken to the operating room and placed in supine position. General anesthesia was performed without difficulty. She was then placed in Mckay stirrups and prepped and draped in sterile fashion. Examination under anesthesia showed her to have a uterus which was 7 wks size with no polyp or myoma . Bulbous, [place], and urethrovesical glands appeared normal. A weighted speculum was placed posteriorly and right-angle Divine anteriorly. Cervix was identified and grasped with a sharp tooth tenaculum. Uterus sounded her to approximately 7 cm. the hysteroscope was placed within the uterus in which she was found to have atrophic endometrium.there was no evidence of polyp or myuoma No bleeding was noted. All instruments were removed. The patient was taken to recovery room in stable condition. CONDITION: The patient is stable and guarded. ESTIMATED BLOOD LOSS: 20 mL Visit Coding OBGYN Date of Service: May 04, 2025 Billing Provider: LEAH SMITH DO CORNER CUTTER Common Visit Codes: [id number] INP/OBS CARE (HIGH) CORNER CUTTER Procedure Codes: [id number], SURG: W/EA LEAH SMITH DO May 04, 2025 08:36
--- NOTE | 2025-05-04 08:39 | POSTOP ---
Post-Operative Note Post-Operative Note Preop Diagnosis pmb,endometrial hyperplasia Postop Diagnosis: no evidence of endometrial hyperplasia,atrophic endometrium Operation performed dv and c,hysteroscopty Specimen emc Anesthesia: Mac, Regional Anesthesiologist: samantha Blood Loss(fluid mgmt) 20ml Surgeon Nidhi Smith Implant na Complications & Mgmt none Date 05/04/25 Time 08:37 Visit Coding OBGYN Date of Service: May 04, 2025 Billing Provider: NIDHI SMITH DO ORACLE DAT[employer]ASE ARCHITECT Common Visit Codes: [id number] INP/OBS CARE (HIGH) [employer]LE DAT[employer] ARCHITECT Procedure Codes: [id number], SURG: W/EA NIDHI SMITH DO May 04, 2025 08:38
--- NOTE | 2025-05-04 08:40 | DVHDS2 ---
Physician Discharge Progress N Final Diagnosis: no evidence of endometrial hyperplasia,atrophic endometrium Operations or Procedures: Operations or Procedures dv and c,hysteroscopty Condition on Discharge: Good Disposition: Home Discharge Instructions: Diet: Regular Activity: Light activity Follow Up/Referral: as sched Medications: althea gaspar Follow Up Care: Specialist: 1w Discharge Statement: "Patient was advised to return to the ER or call 911 if any headaches, dizziness, shortness of breath, chest pain, abdominal pain, bleeding, fevers, or worsening of medical condition. Patient was counseled about treatment plan, medications, possible side effects, patientverbalized understanding. All questions were answered to the best of my ability. This discharge took greater then 30 minutes in planning, reviewing documentation, counseling the patient, and discussing with other team members." Visit Coding OBGYN Date of Service: May 04, 2025 Billing Provider: NIDHI BELTRAN DO OUTSOLE SPLICER Common Visit Codes: [id number] INP/OBS CARE (HIGH), 49985-BBZ/OBS DISCH DAY >30MIN OUTSOLE SPLICER Procedure Codes: [id number], SURG: W/NIDHI MOHR DO May 04, 2025 08:39
[2025-05-04] MEDS ORDERED: FLUMAZENIL 0.1 MG/ML INJ 10ML MDV IV PRN (08:45)
[2025-05-04] MEDS ORDERED: hydrALAZINE HCL 20 MG/ML VL IV PRN (08:45)
[2025-05-04] MEDS ORDERED: NALOXONE HCL 0.4 MG/ML VIAL IV PRN (08:45)
[2025-05-04] MEDS ORDERED: HYDROmorphone HCL 2 MG/ML VL/or syr IV PRN (08:45)
[2025-05-04] MEDS ORDERED: fentaNYL CITRATE 100 MCG/2 ML VL IV PRN (08:45)
[2025-05-04 09:28] VITALS: BP 116/68; PULSE 59; RESP 12; O2SAT 95
== END 2025-05-04 09:55 | disposition home or self-care (01) ==
LOC: SUR 06:12
PROVIDERS: ATTEND Obstetrics & Gynecology
DX: N95.0 Postmenopausal bleeding (principal); N85.8 Other specified noninflammatory disorders of uterus; I10 Essential (primary) hypertension; K21.9 Gastro-esophageal reflux disease without esophagitis; F17.210 Nicotine dependence, cigarettes, uncomplicated; J45.909 Unspecified asthma, uncomplicated; Z85.038 Personal history of other malignant neoplasm of large intestine; Z98.890 Other specified postprocedural states; Z79.899 Other long term (current) drug therapy; Z90.79 Acquired absence of other genital organ(s); Z80.0 Family history of malignant neoplasm of digestive organs
CPT/HCPCS: 36415; 58558; 80053; 81001; 81025; 84702; 85025; 85610; 85730; 86850; 86900; 86901; 88305; J0690; J1100; J1885; J2405; J2704; J0131